=== PATIENT | female | born 1970 | race Caucasian/White ===

== ENCOUNTER 2016-08-14 16:42 | Emergency (ER) | payer OTHER ==
[2016-08-14 16:57] VITALS: BP 124/74
--- NOTE | 2016-08-14 18:31 | RAD ---
Indication: Proximal LEFT humerus and clavicle pain post fall. Comparison: March 05, 2016 Technique: AP and cephalad oblique views LEFT clavicle. Report: Normal alignment at the acromioclavicular and sternoclavicular joints. Mild osteophytosis and capsular hypertrophy at the AC joint. Negative for fracture. Unremarkable soft tissue contours. LEFT side cardiac pacemaker noted. IMPRESSION: Negative for LEFT clavicle fracture.
--- NOTE | 2016-08-14 18:33 | RAD ---
INDICATION: LEFT elbow pain post fall. COMPARISON: No relevant prior exams available on the [facility]. TECHNIQUE: AP, lateral, and oblique views LEFT elbow. REPORT: Normal articular alignment. Negative for joint effusion. No cortical disruption or suspicious trabecular irregularity to suggest fracture. Mild osteophytosis at the proximal radioulnar joint. Unremarkable soft tissue contours. IMPRESSION: No traumatic injury evident.
--- NOTE | 2016-08-14 18:35 | RAD ---
Indication: Proximal LEFT humerus pain post fall. Comparison: LEFT clavicle and elbow of the same date. Technique: AP and lateral views LEFT humerus. Report: Negative for fracture or malalignment. Minimal calcific tendinopathy at the level of the supraspinatus tendon. Mild osteoarthritis of the acromioclavicular joint. Unremarkable soft tissue contours. LEFT chest wall pacemaker noted. IMPRESSION: Negative for LEFT humerus fracture.
--- NOTE | 2016-08-14 18:37 | RAD ---
INDICATION: Pain including at the level of the anatomic snuffbox post fall. COMPARISON: May 10, 2013 TECHNIQUE: AP, lateral, and oblique views LEFT wrist. Scaphoid view. REPORT: Normal articular alignment. No cortical disruption or suspicious trabecular irregularity to suggest fracture. Mild nonfocal soft tissue swelling. IMPRESSION: No evidence for fracture. If there is high index of suspicion for an occult scaphoid fracture repeat exam in 7 - 10 days would be suggested.
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
== END 2016-08-14 19:08 | disposition home or self-care (01) ==
LOC: UCEAST 16:42
DX: S53.402A Unspecified sprain of left elbow, initial encounter (principal); S40.022A Contusion of left upper arm, initial encounter; S06.0X0A Concussion without loss of consciousness, initial encounter; W17.81XA Fall down embankment (hill), initial encounter; Y93.01 Activity, walking, marching and hiking; Y92.410 Unspecified street and highway as the place of occurrence of the external cause; Z88.6 Allergy status to analgesic agent; Z88.5 Allergy status to narcotic agent; Z88.0 Allergy status to penicillin; Z88.8 Allergy status to other drugs, medicaments and biological substances; E11.9 Type 2 diabetes mellitus without complications; Z79.4 Long term (current) use of insulin; Z95.0 Presence of cardiac pacemaker; Z98.84 Bariatric surgery status; Z90.49 Acquired absence of other specified parts of digestive tract
CPT/HCPCS: 99213; G0463

== ENCOUNTER 2016-08-31 14:39 | Emergency (ER) | payer OTHER ==
[2016-08-31 16:04] VITALS: BP 113/64
[2016-08-31] MEDS ORDERED: HYDROcodone/ACETAMIN 5-325 MG* 1 TAB PO ONE (18:09)
--- NOTE | 2016-08-31 22:43 | UC ---
Mary De Jesus Erika, scribed for Kate Diggs MD on 08/31/16 at 1729 . Back Pain HPI - HPI Summary HPI Summary: Patient is a 46-year-old female presenting to [facility] with a CC of back pain starting today at 12:30. Patient reports that today, she was bending over to dry her right leg when she felt a "pop" and had pain shooting from the upper back to the lower back to the bilateral posterior lower extremities. Pain is worse on the right side. Patient rates pain a 7/10 while sitting and a 9/10 while ambulating. Pain was not alleviated by 2 pills of Aleve at 13:00. Patient states she urinates frequently at baseline, and notes some pain when the bladder is empty. Hx DDD, pacemaker. PSHx discectomy L4-L5, hysterectomy in 2011 for pre-cancerous cells. FHx CAD, DM, cancer. - History of Current Complaint Chief Complaint: UCBackPain Stated Complaint: BACK PAIN Time Seen by Provider: 08/31/16 17:24 Hx Obtained From: Patient Hx Last Menstrual Period: hysterectomy 2011 Onset/Duration: Sudden Onset, Lasting Hours, Still Present Timing: Constant Severity Initially: Moderate Severity Currently: Moderate Pain Intensity: 8 Pain Scale Used: 0-10 Numeric Character: Aching Aggravating: Movement Alleviating: Heat Associated Signs And Symptoms: Positive: Pain with Weight Bearing. Negative: Weakness, Numbness, Tingling, Abdominal Pain, Bladder Incontinence, Bowel Incontinence - Allergies/Home Medications Allergies/Adverse Reactions: Allergies Allergy/AdvReac Type Severity Reaction Status Date / Time Adhesive Tape Allergy Severe Rash Verified 08/14/16 16:57 Aspirin Allergy Severe Hives/Diff. Verified 08/14/16 16:57 Breathing/I tching Morphine Allergy Severe Hives/Diff. Verified 08/14/16 16:57 Breathing/I tching Amoxicillin Allergy Intermediate Hives Verified 08/14/16 16:57 Metformin AdvReac Severe n/v/d Verified 08/14/16 16:57 Home Medications: Home Medications Cyanocobalamin [B12] 2,000 mcg PO BID 08/31/16 [History Confirmed 08/31/16] Magnesium [Magnesium] 400 mg PO 08/31/16 [History] Multiple Vitamin [Multi Vitamin] 2 tab PO 08/31/16 [History] PMH/Surg Hx/FS Hx/Imm Hx Endocrine History Of: Reports: Diabetes - pt reports she uses lantus 21units daily, Thyroid Disease Cardiovascular History Of: Reports: Cardiac Disorders, Pacemaker/ICD - 9/ because she is on Latuda which gave her bradycardia Denies: Hypertension, Myocardial Infarction, Congestive Heart Failure Respiratory History Of: Reports: COPD - PER PT.FROM 2D HAND SMOKE/PARENTS, Bronchitis - CHRONIC, Pneumonia GI/ History Of: Neurological History Of: Reports: Migraine Psychological History Of: Reports: Bipolar Disorder Cancer History Of: Other History Of: - Surgical History Surgical History: Yes Surgery Procedure, Year, and Place: DISCECTOMY L4-L5 2007. HYSTERECTOMY 2011. RT BREAST LUMP REMOVED- BENIGN 2004. GALLBLADDER 2006. 3 C-SECTIONS 96 , 98, 99; Gastric sleeve, Pacer placed 02/28. GASTRIC SLEEVE SURGERY 2014 - Family History Known Family History: Positive: Cardiac Disease, Diabetes, Other - cancer Family History: Heart disease: Father, [place] age 46. Stroke: Grandmother, grandfather. Seizures: Daughter - Social History Occupation: Disabled Alcohol Use: None Substance Use Type: None Smoking Status (MU): Never Smoked Tobacco - Immunization History Most Recent Influenza Vaccination: this season Most Recent Tetanus Shot: ~2012 Most Recent Pneumonia Vaccination: 2 years ago Review of Systems Constitutional: Negative Skin: Negative Eyes: Negative ENT: Negative Respiratory: Negative Cardiovascular: Negative Gastrointestinal: Negative Genitourinary: Frequency - baseline Motor: Negative Neurovascular: Negative Musculoskeletal: Arthralgia, Other: - back pain radiating down posterior legs Neurological: Negative Psychological: Negative All Other Systems Reviewed And Are Negative: Yes Physical Exam Triage Information Reviewed: Yes Appearance: Well-Appearing, Well-Nourished, Pain Distress Vital Signs: Initial Vital Signs Temp 97.1 F 08/31/16 15:58 Pulse 66 08/31/16 15:58 Resp 16 08/31/16 15:58 BP 113/64 08/31/16 15:58 Pulse Ox 99 08/31/16 15:58 Vital Signs Reviewed: Yes Eyes: Positive: Conjunctiva Clear, Other: - PERRL, EOMI ENT: Positive: Normal ENT inspection Neck: Positive: Supple Respiratory: Positive: Lungs clear, Normal breath sounds, No respiratory distress Cardiovascular: Positive: RRR, No Murmur, Pulses Normal, Brisk Capillary Refill Abdomen Description: Positive: Nontender, Soft. Negative: CVA Tenderness (R), CVA Tenderness (L), Distended, Guarding, McBurney's Point Tenderness, Peritoneal Signs, Pulsatile Mass Bowel Sounds: Positive: Present Musculoskeletal: Positive: Other: - Patient gets up with difficulty. She can bear weight. Patellar and ankle reflexes are 1+ bilaterally. Walks on heels and tiptoes. Neurological: Positive: Alert, Muscle Tone Normal Psychological Exam: Normal Skin Exam: Normal Back Pain Course/Dx - Course Course Of Treatment: UA neg - Differential Dx/Diagnosis Differential Diagnosis/HQI/PQRI: Arthritis, Herniated Disc, Strain, Sprain Provider Diagnoses: 1. Acute low back pain Discharge - Discharge Plan Condition: Stable Disposition: HOME Prescriptions: HYDROcodone/ACETAMIN 5-325 MG* [Warren 5-325 TAB*] 1 tab PO Q4H PRN #12 tab MDD 4 PRN Reason: Pain Patient Education Materials: Acute Low Back Pain (ED) Referrals: Paige Barnett MD [Primary Care Provider] - 2 Days Additional Instructions: RETURN TO URGENT CARE FOR ANY NEW OR WORSENING SYMPTOMS. The documentation as recorded by the Mary noel Erika accurately reflects the service I personally performed and the decisions made by , Kate Diggs MD.
== END 2016-08-31 19:33 | disposition home or self-care (01) ==
LOC: UCEAST 14:39
DX: M54.5 Low back pain (principal); E11.9 Type 2 diabetes mellitus without complications; Z88.0 Allergy status to penicillin; Z95.0 Presence of cardiac pacemaker; J44.9 Chronic obstructive pulmonary disease, unspecified
CPT/HCPCS: 81003; 99202; G0463

== ENCOUNTER 2016-11-15 09:32 | Emergency (ER) | payer OTHER ==
[2016-11-15 10:03] VITALS: BP 128/78
--- NOTE | 2016-11-15 10:19 | UC ---
Back Pain HPI - HPI Summary HPI Summary: BENT OVER YESTERDAY AND FELT A POP. PT HAS CHRONIC BACK PAIN AND NOW HAS WORSENING LOW BACK PAIN RADIATING DOWN BOTH LEGS. HAS SOME RIGHT LEG NUMBNESS BUT THIS IS ALSO CHRONIC. DENIES BOWEL OR BLADDER INCONTINENCE. NO SADDLE ANESTHESIA. - History of Current Complaint Chief Complaint: UCBackPain Stated Complaint: BACK INJURY Time Seen by Provider: 11/15/16 09:53 Hx Obtained From: Patient Hx Last Menstrual Period: hysterectomy 2011 Onset/Duration: Sudden Onset, Lasting Days, Still Present Timing: Constant Severity Initially: Moderate Severity Currently: Moderate Pain Intensity: 8 Pain Scale Used: 0-10 Numeric Character: Sharp Aggravating: Movement, Bending Alleviating: Position Associated Signs And Symptoms: Positive: Negative - Allergies/Home Medications Allergies/Adverse Reactions: Allergies Allergy/AdvReac Type Severity Reaction Status Date / Time Adhesive Tape Allergy Severe Rash Verified 11/15/16 09:43 Aspirin Allergy Severe Hives/Diff. Verified 11/15/16 09:43 Breathing/I tching Morphine Allergy Severe Hives/Diff. Verified 11/15/16 09:43 Breathing/I tching Amoxicillin Allergy Intermediate Hives Verified 11/15/16 09:43 Metformin AdvReac Severe n/v/d Verified 11/15/16 09:43 Home Medications: Home Medications ALPRAZolam TAB* [Xanax TAB*] 11/15/16 [History] Albuterol HFA INHALER* [Ventolin HFA Inhaler*] 11/15/16 [History] Fluticasone Propionate Hfa [Flovent Hfa] 11/15/16 [History] Omeprazole CAP* [Prilosec CAP* 20 MG] 11/15/16 [History] Sitagliptin Phosphate [Januvia] 11/15/16 [History] PMH/Surg Hx/FS Hx/Imm Hx - Additional Past Medical History Additional PMH: CHRONIC BACK PAIN Endocrine History: Diabetes Psychological History: Anxiety, Depression, Post Traumatic Stress Disorder Other History Of: - Surgical History Surgical History: Yes Surgery Procedure, Year, and Place: DISCECTOMY L4-L5 2007. HYSTERECTOMY 2011. RT BREAST LUMP REMOVED- BENIGN 2004. GALLBLADDER 2006. 3 C-SECTIONS 96 , 98, 99; Gastric sleeve, Pacer placed 02/28. GASTRIC SLEEVE SURGERY 2014 - Family History Known Family History: Positive: Cardiac Disease, Diabetes, Other - cancer Family History: Heart disease: Father, [place] age 46. Stroke: Grandmother, grandfather. Seizures: Daughter - Social History Alcohol Use: None Substance Use Type: None Smoking Status (MU): Never Smoked Tobacco Have You Smoked in the Last Year: No - Pt states she has never smoked before in her life. - Immunization History Most Recent Influenza Vaccination: this season Most Recent Tetanus Shot: ~2012 Most Recent Pneumonia Vaccination: 2 years ago Review of Systems Constitutional: Negative Skin: Negative Respiratory: Negative Cardiovascular: Negative Gastrointestinal: Negative Musculoskeletal: Arthralgia, Decreased ROM, Myalgia All Other Systems Reviewed And Are Negative: Yes Physical Exam Triage Information Reviewed: Yes Appearance: Well-Appearing, No Pain Distress, Well-Nourished Vital Signs: Initial Vital Signs Temp 98.4 F 11/15/16 10:02 Pulse 72 11/15/16 10:02 Resp 16 11/15/16 10:02 BP 128/78 11/15/16 10:02 Pulse Ox 98 11/15/16 10:02 Vital Signs Reviewed: Yes Eyes: Positive: Conjunctiva Clear ENT: Positive: Hearing grossly normal Neck: Positive: Supple Respiratory: Positive: No respiratory distress, No accessory muscle use Cardiovascular: Positive: Pulses Normal Abdomen Description: Positive: Soft Musculoskeletal: Positive: No Edema, ROM Limited @, Other: - NEG STRAIGHT LEG RAISE Neurological: Positive: Alert Psychological: Positive: Age Appropriate Behavior Skin: Negative: rashes Back Pain Course/Dx - Differential Dx/Diagnosis Provider Diagnoses: ACUTE ON CHRONIC LOW BACK PAIN Discharge - Discharge Plan Condition: Stable Disposition: HOME Prescriptions: Meloxicam [Mobic] 7.5 mg PO BID PRN #30 tab PRN Reason: Pain Metaxalone TAB* [Skelaxin TAB*] 800 mg PO TID PRN #30 tab PRN Reason: Pain Patient Education Materials: Acute Low Back Pain (ED), Chronic Back Pain (ED) Referrals: Paige Barnett MD [Primary Care Provider] - 1 Week Additional Instructions: WE WILL SEND YOUR INFORMATION FOR A PAIN CLINIC REFERRAL. THEY WILL CONTACT YOU FOR AN APPOINTMENT. CONSIDER FOLLOW-UP WITH THE [facility] IN [place]. [facility] [address] [place] [address]
== END 2016-11-15 10:33 | disposition home or self-care (01) ==
LOC: UCEAST 09:32
DX: M54.5 Low back pain (principal); G89.29 Other chronic pain
CPT/HCPCS: 99212; G0463

== ENCOUNTER → 2016-12-20 16:38 | Emergency (ER) | payer OTHER ==
[~2016-12-20 16:38] MED LIST: HYDROcodone/ACETAMIN 5-325 MG* 1 TAB PO ONE
--- NOTE | 2016-12-20 19:06 | ED ---
Back Pain - HPI Summary HPI Summary: Patient with a complicated history of back problems and frequency to the ED presents s/p fall and c/o worsening back and tailbone pain with immediate bladder incontinence s/p fall. She is ambulating well, but with pain. She states she may have "pulled something" in her lower back and the pain is much worse than normal. Upon arrival to the ED, she walked with provider to restroom without issue, but states she had another episode of "dribbling" prior to sitting on the seat to go. She has never had this problem before. She endorses numbness and tingling through the right leg and has had this with previous back injuries. Denies hitting head or LOC. No saddle anesthesia on PE. - History of Current Complaint Chief Complaint: EDBackInjuryPain Stated Complaint: FALL/BACK AND HIP PAIN Time Seen by Provider: 12/20/16 17:06 Hx Obtained From: Patient Hx Last Menstrual Period: hysterectomy 2011 Onset/Duration: Sudden Onset Onset/Duration: Started Hours Ago Timing: Constant Back Pain Location: Is Discrete @ - low back Severity Initially: Moderate Severity Currently: Moderate Pain Intensity: 10 Pain Scale Used: 0-10 Numeric Character: Dull, Aching Aggravating Symptom(s): Movement Alleviating Symptom(s): Nothing Associated Signs And Symptoms: Positive: Bladder Incontinence, Pain with Weight Bearing - Risk Factors AAA Risk Factors: Negative TAD Risk Factors: Negative Cauda Equina Risk Factors: Bladder Dysfunction Epidural Abscess Risk Factors: Lower Extemity Numbness - Allergies/Home Medications Allergies/Adverse Reactions: Allergies Allergy/AdvReac Type Severity Reaction Status Date / Time Adhesive Tape Allergy Severe Rash Verified 11/15/16 09:43 Aspirin Allergy Severe Hives/Diff. Verified 11/15/16 09:43 Breathing/I tching Morphine Allergy Severe Hives/Diff. Verified 11/15/16 09:43 Breathing/I tching Amoxicillin Allergy Intermediate Hives Verified 11/15/16 09:43 Metformin AdvReac Severe n/v/d Verified 11/15/16 09:43 PMH/Surg Hx/FS Hx/Imm Hx Previously Healthy: No - previous back pain and surgeries, see below Endocrine/Hematology History: Reports: Hx Diabetes - pt reports she uses lantus 21units daily, Hx Thyroid Disease, Hx Anemia Cardiovascular History: Reports: Hx Angina, Hx Hypercholesterolemia, Hx Pacemaker/ICD - 9/ because she is on Latuda which gave her bradycardia, Hx Valvular Heart Disease - MVP, Other Cardiovascular Problems/Disorders - MITRAL VALVE PROLAPSE Denies: Hx Congestive Heart Failure, Hx Hypertension, Hx Myocardial Infarction Respiratory History: Reports: Hx Chronic Bronchitis, Hx Chronic Obstructive Pulmonary Disease (COPD) - PER PT.FROM 2D HAND SMOKE/PARENTS, Hx Pneumonia, Hx Sleep Apnea Denies: Hx Asthma - albuterol + symbicort GI History: Reports: Hx Diverticulosis, Hx Gastroesophageal Reflux Disease - NO MEDICATION FOR- NO PROBLEMS SINCE GASTRIC SURGERY, Other GI Disorders - GASTRIC SLEEVE 1+ YEAR AGO History: Reports: Other Problems/Disorders - 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 Musculoskeletal History: Reports: Hx Arthritis - MANY JOINTS - back, hips primarily, Hx Back Problems - DDD, Hx Tendonitis Denies: Hx Rheumatoid Arthritis, Hx Osteoporosis Sensory History: Reports: Hx Contacts or Glasses - GLASSES Opthamlomology History: Reports: Hx Contacts or Glasses - GLASSES Neurological History: Reports: Hx Headaches, Hx Migraine, Other Neuro Impairments/Disorders - siatic nerve pain Psychiatric History: Reports: Hx Panic Disorder - ANXIETY, Hx Post Traumatic Stress Disorder, Hx Inpatient Treatment, Hx Community Mental Health Tx, Hx Bipolar Disorder, Hx Suicide Attempt, Other Psychiatric Issues/Disorders - reports: "personality d/o" Denies: Hx Eating Disorder - Pt states [employer] "Diagnosed me with an eating D/O because I was afraid to eat.", Hx of Violent Episodes Against Others - Cancer History Cancer Type, Location and Year: hysterectomy was due to precancerous cells - Surgical History Surgery Procedure, Year, and Place: DISCECTOMY L4-L5 2007. HYSTERECTOMY 2011. RT BREAST LUMP REMOVED- BENIGN 2004. GALLBLADDER 2006. 3 C-SECTIONS 96 , 98, 99; Gastric sleeve, Pacer placed 02/28. GASTRIC SLEEVE SURGERY 2014 Hx Anesthesia Reactions: No - Immunization History Hx Pertussis Vaccination: No Immunizations Up to Date: Unable to Obtain/Confirm Infectious Disease History: No Infectious Disease History: Denies: Hx Clostridium Difficile, Hx of Known/Suspected MRSA, Hx Shingles, Hx Tuberculosis, Hx Known/Suspected VRE, Hx Known/Suspected VRSA, History Other Infectious Disease, Traveled Outside the [place] in Last 30 Days - Family History Known Family History: Positive: None, Cardiac Disease, Diabetes, Other - cancer Family History: Heart disease: Father, [place] age 46. Stroke: Grandmother, grandfather. Seizures: Daughter - Social History Occupation: Unemployed Lives: With Family Alcohol Use: None Hx Substance Use: No Substance Use Type: Reports: None Hx Tobacco Use: No Smoking Status (MU): Never Smoked Tobacco Have You Smoked in the Last Year: No - Pt states she has never smoked before in her life. Review of Systems Constitutional: Negative Eyes: Negative Cardiovascular: Negative Respiratory: Negative Gastrointestinal: Negative Positive: incontinence Positive: Arthralgia, Myalgia - lower back pain Skin: Negative Positive: Paresthesia, Numbness Psychological: Normal All Other Systems Reviewed And Are Negative: Yes Physical Exam Triage Information Reviewed: Yes Vital Signs On Initial Exam: Initial Vitals Temp Pulse Resp BP Pulse Ox 97.5 F 72 17 130/75 98 12/20/16 16:45 12/20/16 16:45 12/20/16 16:45 12/20/16 16:45 12/20/16 16:45 Vital Signs Reviewed: Yes Appearance: Positive: Well-Appearing, No Pain Distress, Well-Nourished Skin: Positive: Warm, Skin Color Reflects Adequate Perfusion Neck: Positive: Supple, Nontender, No Lymphadenopathy Respiratory/Lung Sounds: Positive: Clear to Auscultation, Breath Sounds Present Cardiovascular: Positive: Normal, RRR Bowel Sounds: Positive: Present, Other - normal spinchter tone on ELIUD Musculoskeletal: Positive: Normal Neurological: Positive: Sensory/Motor Intact, Alert, Oriented to Person Place, Time, CN Intact II-III, Facial Symmetry, Speech Normal Psychiatric: Positive: Normal AVPU Assessment: Alert - [place] Coma Scale Best Eye Response: 4 - Spontaneous Best Motor Response: 6 - Obeys Commands Best Verbal Response: 5 - Oriented Diagnostics - Vital Signs Vital Signs Temp Pulse Resp BP Pulse Ox 12/20/16 17:01 97.5 F 72 17 130/75 98 12/20/16 16:45 97.5 F 72 17 130/75 98 - Laboratory Lab Statement: Any lab studies that have been ordered have been reviewed, and results considered in the medical decision making process. Back Pain Course/Dx - Course Course Of Treatment: Spoke with Dr. Rojas about patient for potential imaging. Recent CT image 1 week ago s/p fall shows L2-L5 degenerative changes. Today, fell again and states more pain than usual. No perineal or saddle anesthesia. No bowel dysfunction or lower extremity weakness. Right lower extremity numbness and tingling. Bladder incontinence x 2. Post void bladder scan reveals 28. Ambulating without problems. Denies bladder or bowel dysfunction upon discharge. Will follow up with PCP this week. - Diagnoses Differential Diagnosis/HQI/PQRI: Positive: Fracture, Herniated Disc, Strain, Sprain Provider Diagnoses: Injury of back due to fall Discharge - Discharge Plan Condition: Stable Disposition: HOME Patient Education Materials: Chronic Back Pain (ED) Referrals: Paige Barnett MD [Primary Care Provider] - Additional Instructions: Ibuprofen 600mg three times daily with meals for discomfort. Return to ED if symptoms worsen or fail to improve, notice worsening swelling, warmth or redness around the joint, develop fever, or pain is uncontrolled with OTC medications. Moist heat to the area for comfort. Warm showers or baths may improve symptoms. It is important to remain mobile as tolerated to prevent stiffening of the joints and delay healing. Follow up with your PCP. If symptoms remain for > 6 weeks, please seek special medical attention from an orthopedic physician.
[2016-12-20 20:13] VITALS: BP 133/81
== END | disposition home or self-care (01) ==
LOC: ED 16:38
DX: S39.92XA Unspecified injury of lower back, initial encounter (principal); W19.XXXA Unspecified fall, initial encounter; Y92.9 Unspecified place or not applicable; E78.00 Pure hypercholesterolemia, unspecified; Z95.0 Presence of cardiac pacemaker; Z88.0 Allergy status to penicillin; Z88.5 Allergy status to narcotic agent; I34.1 Nonrheumatic mitral (valve) prolapse; J44.9 Chronic obstructive pulmonary disease, unspecified
CPT/HCPCS: 99282

== ENCOUNTER 2017-01-26 14:40 | Emergency (ER) | payer OTHER ==
[2017-01-26 15:29] LABS: Hematocrit 37 % (35-47); Hemoglobin 12.4 g/dl (12.0-16.0); Mean Corpuscular HGB Conc 34 g/dl (31-36); Mean Corpuscular Hemoglobin 29 pg (27-31); Mean Corpuscular Volume 85 fL (80-97); Mean Platelet Volume 7 um3 (7.4-10.4); Red Blood Count 4.33 10^6/ul (4.0-5.4); Red Cell Distribution Width 13 % (10.5-15); White Blood Count 10.2 10^3/ul (3.5-10.8)
[2017-01-26 16:07] LABS: T4 6.25 mcg/mL (6.09-12.23)
[2017-01-26 16:08] LABS: TSH (Thyroid Stimulating Horm) 1.42 mcIU/mL (0.34-5.60)
--- NOTE | 2017-01-26 16:11 | RAD ---
HISTORY: Chest pain COMPARISONS: March 26, 2016 VIEWS: 4: Frontal dual-energy and lateral views of the chest. FINDINGS: CARDIOMEDIASTINAL SILHOUETTE: The cardiomediastinal silhouette is normal. CHRIS: The chris are normal. PLEURA: The costophrenic angles are sharp. No pleural abnormalities are noted. LUNG PARENCHYMA: The lungs are clear. ABDOMEN: The upper abdomen is clear. There is no subphrenic gas. BONES AND SOFT TISSUES: No bone or soft tissue abnormalities are noted. OTHER: A left-sided pacemaker is noted . IMPRESSION: NO ACTIVE CARDIOPULMONARY DISEASE.
[2017-01-26 16:15] LABS: Albumin 3.4 g/dL (3.2-5.2); BUN/Creatinine Ratio 5.1 (8-20); Calcium 8.5 mg/dL (8.6-10.3); EGFR African American 79.3 (>60); EGFR Non-African American 61.7 (>60); Globulin 3.3 g/dL (2-4); Magnesium 1.3 mg/dL (1.9-2.7); Potassium 3.7 mmol/L (3.5-5.0); Total Bilirubin 0.4 mg/dL (0.2-1.0); Total Protein 6.7 g/dL (6.4-8.9)
[2017-01-26] MEDS ORDERED: NS 0.9% 1000 ML* 1,000 ML IV ONE (16:23)
[2017-01-26 17:22] LABS: Urine Bilirubin Negative (Negative); Urine Glucose Negative (Negative); Urine Nitrite Negative (Negative)
[2017-01-26] MEDS ORDERED: Acetaminophen TAB* 325 MG ONE (17:58)
[2017-01-26] MEDS ORDERED: Acetaminophen TAB* 325 MG PO ONE (18:02)
[2017-01-26 18:52] VITALS: BP 143/75
--- NOTE | 2017-01-27 17:29 | ED ---
Jni De Jesus Thomas, scribed for Keyon Deleon MD on 01/26/17 at 1606 . HPI Chest Pain - HPI Summary HPI Summary: The pt is a 46 y/o F presenting to the ED c/o CP that began today at 13:30. The pain radiates to her left arm and her jaw. The pain is rated 6/10. The pain is aggravated and alleviated by nothing. The patient has not treated the pain with anything ERP ANALYST. The chest pain was preceded by palpitations that began this morning at 07:30. The patient reports that after these palpitations began she returned to bed. The palpitations are alleviated when she remains supine and motionless. Pt additionally c/o dizziness (since 07:30 today), nausea, swollen fingers and legs, and SOB. PMHx: DM, angina, HLD, and COPD. PSHx: pacemaker, hysterectomy (2011). SHx: no smoking, no alcohol use, no illicit drug use. FHx: [place] (father at 44). LNMP September 2011. In the past, the patient has suffered similar episodes of chest pains that were evaluated to be negative for ACS. - History of Current Complaint Chief Complaint: EDChestPainROMI Time Seen by Provider: 01/26/17 14:52 Hx Obtained From: Patient Hx Last Menstrual Period: hysterectomy 2011 Onset/Duration: Started Hours Ago - today at 13:30, Still Present Timing: Constant Current Severity: Moderate Pain Intensity: 6 Pain Scale Used: 0-10 Numeric Chest Pain Radiates: Yes Chest Pain Radiates To:: Arm - L, Jaw Aggravating Factor(s): Nothing Alleviating Factor(s): Nothing Associated Signs and Symptoms: Positive: Chest Pain - 6/10, radiates to L arm and jaw, Dizziness - onset 07:30 today, Shortness of Breath, Swelling - to legs and toes, Palpitations - that began today at 07:30, relieved by laying in bed. Negative: Fever - Additional Pertinent History Primary Care Physician: [id number] - Allergy/Home Medications Allergies/Adverse Reactions: Allergies Allergy/AdvReac Type Severity Reaction Status Date / Time Adhesive Tape Allergy Severe Rash Verified 01/19/17 10:53 Aspirin Allergy Severe Hives/Diff. Verified 01/19/17 10:53 Breathing/I tching Morphine Allergy Severe Hives/Diff. Verified 01/19/17 10:53 Breathing/I tching Amoxicillin Allergy Intermediate Hives Verified 01/19/17 10:53 Metformin AdvReac Severe n/v/d Verified 01/19/17 10:53 PMH/Surg Hx/FS Hx/Imm Hx Previously Healthy: No Endocrine/Hematology History: Reports: Hx Diabetes - pt reports she uses lantus 21units daily, Hx Thyroid Disease, Hx Anemia Cardiovascular History: Reports: Hx Angina, Hx Hypercholesterolemia, Hx Pacemaker/ICD - 9/ because she is on Latuda which gave her bradycardia, Hx Valvular Heart Disease - MVP, Other Cardiovascular Problems/Disorders - MITRAL VALVE PROLAPSE Denies: Hx Congestive Heart Failure, Hx Hypertension, Hx Myocardial Infarction Respiratory History: Reports: Hx Chronic Bronchitis, Hx Chronic Obstructive Pulmonary Disease (COPD) - PER PT.FROM 2D HAND SMOKE/PARENTS, Hx Pneumonia, Hx Sleep Apnea Denies: Hx Asthma - albuterol + symbicort GI History: Reports: Hx Diverticulosis, Hx Gastroesophageal Reflux Disease - NO MEDICATION FOR- NO PROBLEMS SINCE GASTRIC SURGERY, Other GI Disorders - GASTRIC SLEEVE 1+ YEAR AGO History: Reports: Other Problems/Disorders - 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 Musculoskeletal History: Reports: Hx Arthritis - MANY JOINTS - back, hips primarily, Hx Back Problems - DDD, Hx Tendonitis Denies: Hx Rheumatoid Arthritis, Hx Osteoporosis Sensory History: Reports: Hx Contacts or Glasses - GLASSES Opthamlomology History: Reports: Hx Contacts or Glasses - GLASSES Neurological History: Reports: Hx Headaches, Hx Migraine, Other Neuro Impairments/Disorders - siatic nerve pain Psychiatric History: Reports: Hx Panic Disorder - ANXIETY, Hx Post Traumatic Stress Disorder, Hx Inpatient Treatment, Hx Community Mental Health Tx, Hx Bipolar Disorder, Hx Suicide Attempt, Other Psychiatric Issues/Disorders - reports: "personality d/o" Denies: Hx Eating Disorder - Pt states [employer] "Diagnosed me with an eating D/O because I was afraid to eat.", Hx of Violent Episodes Against Others - Cancer History Cancer Type, Location and Year: hysterectomy was due to precancerous cells - Surgical History Surgery Procedure, Year, and Place: DISCECTOMY L4-L5 2007. HYSTERECTOMY 2011. RT BREAST LUMP REMOVED- BENIGN 2004. GALLBLADDER 2006. 3 C-SECTIONS 96 , 98, 99; Gastric sleeve, Pacer placed 02/28. GASTRIC SLEEVE SURGERY 2015 Hx Anesthesia Reactions: No Infectious Disease History: No Infectious Disease History: Denies: Hx Clostridium Difficile, Hx of Known/Suspected MRSA, Hx Shingles, Hx Tuberculosis, Hx Known/Suspected VRE, Hx Known/Suspected VRSA, History Other Infectious Disease, Traveled Outside the [place] in Last 30 Days - Family History Known Family History: Positive: Cardiac Disease - father at 44, Diabetes, Other - cancer Family History: Heart disease: Father, [place] age 46. Stroke: Grandmother, grandfather. Seizures: Daughter - Social History Alcohol Use: None Hx Substance Use: No Substance Use Type: Reports: None Hx Tobacco Use: No Smoking Status (MU): Never Smoked Tobacco Have You Smoked in the Last Year: No - Pt states she has never smoked before in her life. Review of Systems Constitutional: Negative Negative: Fever Positive: Palpitations - onset 07:30, alleviated by lying in bed supine and motionless, Chest Pain - onset 13:30, 6/10, radiates to L arm and jaw Positive: Shortness Of Breath Positive: Nausea Positive: Other - POS: swelling to fingers and toes Neurological: Other - POS: dizziness All Other Systems Reviewed And Are Negative: Yes Physical Exam - Summary Physical Exam Summary: VITAL SIGNS: Reviewed. GENERAL: ~Patient is a well-developed and nourished female who is lying comfortable in the stretcher. ~Patient is not in any acute respiratory distress. HEAD AND FACE: No signs of trauma. ~No ecchymosis, hematomas or skull depressions. No sinus tenderness. EYES: PERRLA, EOMI x 2, No injected conjunctiva, no nystagmus. EARS: Hearing grossly intact. Ear canals and tympanic membranes are within normal limits. MOUTH: Oropharynx within normal limits. NECK: Supple, trachea is midline, no adenopathy, no JVD, no carotid bruit, no c- spine tenderness, neck with full ROM. CHEST: Symmetric, no tenderness at palpation LUNGS: Clear to auscultation bilaterally. No wheezing or crackles. CVS: Regular rate and rhythm, S1 and S2 present, no murmurs or gallops appreciated. ABDOMEN: Soft, non-tender. No signs of distention. No rebound no guarding, and no masses palpated. Bowel sounds are normal. EXTREMITIES: FROM in all major joints, no edema, no cyanosis or clubbing. NEURO: Alert and oriented x 3. No acute neurological deficits. Speech is normal and follows commands. SKIN: Dry and warm Triage Information Reviewed: Yes Vital Signs On Initial Exam: Initial Vitals Temp Pulse Resp BP Pulse Ox 99.9 F 80 20 164/77 93 01/26/17 14:40 01/26/17 14:40 01/26/17 14:40 01/26/17 14:40 01/26/17 14:40 Vital Signs Reviewed: Yes Diagnostics - Vital Signs Vital Signs Temp Pulse Resp BP Pulse Ox 01/26/17 15:07 85 16 127/66 93 01/26/17 15:06 99.1 F 83 13 127/66 93 01/26/17 14:40 99.9 F 80 20 164/77 93 - Laboratory Lab Results: Lab Results 01/26/17 01/26/17 01/26/17 Range/Units 15:23 15:23 15:23 WBC 10.2 (3.5-10.8) 10^3/ul RBC 4.33 (4.0-5.4) 10^6/ul Hgb 12.4 (12.0-16.0) g/dl Hct 37 (35-47) % MCV 85 (80-97) fL MCH 29 (27-31) pg MCHC 34 (31-36) g/dl RDW 13 (10.5-15) % Plt Count 255 (150-450) 10^3/ul MPV 7 L (7.4-10.4) um3 Neut % (Auto) 65.4 (38-83) % Lymph % (Auto) 27.8 (25-47) % [place] % (Auto) 4.8 (1-9) % Eos % (Auto) 1.1 (0-6) % Baso % (Auto) 0.9 (0-2) % Absolute Neuts (auto) 6.7 (1.5-7.7) 10^3/ul Absolute Lymphs (auto) 2.8 (1.0-4.8) 10^3/ul Absolute Monos (auto) 0.5 (0-0.8) 10^3/ul Absolute Eos (auto) 0.1 (0-0.6) 10^3/ul Absolute Basos (auto) 0.1 (0-0.2) 10^3/ul Absolute Nucleated RBC 0 10^3/ul Nucleated RBC % 0 Sodium Pending Potassium Pending Chloride Pending Carbon Dioxide Pending Anion Gap Pending BUN Pending Creatinine Pending Est GFR ( Amer) Pending Est GFR (Non-Af Amer) Pending BUN/Creatinine Ratio Pending Glucose Pending Calcium Pending Magnesium Pending Total Bilirubin Pending AST Pending ALT Pending Alkaline Phosphatase Pending Total Creatine Kinase Pending CK-MB (CK-2) 0.7 (0.6-6.3) ng/mL Troponin I 0.00 (<0.04) ng/mL B-Natriuretic Peptide 80 ( - 100) pg/mL Total Protein Pending Albumin Pending Globulin Pending Albumin/Globulin Ratio Pending TSH Pending Thyroxine (T4) Pending Result Diagrams: 01/26/17 15:23 01/26/17 15:23 Lab Statement: Any lab studies that have been ordered have been reviewed, and results considered in the medical decision making process. - Radiology CXR Xray Interpretation: No Acute Changes - No active cardiopulmonary disease Radiology Interpretation Completed By: Radiologist - EKG 14:56 Cardiac Rate: NL - 83 BPM EKG Interpretation: Sinus rhythm with no ST elevations. Chest Pain Course/Dx - Course Assessment/Plan: The pt is a 46 y/o F presenting to the ED c/o CP that began today at 13:30. The pain radiates to her left arm and her jaw. The pain is rated 6/10. The pain is aggravated and alleviated by nothing. The patient has not treated the pain with anything ERP ANALYST. The chest pain was preceded by palpitations that began this morning at 07:30. The patient reports that after these palpitations began she returned to bed. The palpitations are alleviated when she remains supine and motionless. Pt additionally c/o dizziness (since 07: 30 today), nausea, swollen fingers and legs, and SOB. PMHx: DM, angina, HLD, and COPD. PSHx: pacemaker, hysterectomy (2011). SHx: no smoking, no alcohol use , no illicit drug use. FHx: [place] (father at 44). LN September 2011. In the past , the patient has suffered similar episodes of chest pains that were evaluated to be negative for ACS. Test results are without significant abnormalities except a glucose of 191. Troponin I is 0.00 and the Troponin II was 0.00 after 4 hours. UA is negative. CXR reveals no active cardiopulmonary disease. EKG is NSR at [address] elevations. In the ED course, the patient has remained asymptomatic. I do not believe that the patient is dealing with an ACS because there are two negative troponins and a normal EKG. Also, I do not believe that the patient is dealing with a pulmonary embolus because the patient is not tachycardic and not hypoxic. The patient has a small MARIN, therefore, I gave her Tylenol. At this point, the patient is hemodynamically stable and is alert and oriented x3. She will be discharge home with follow up from her PCP. I discussed all the findings and test results with the patient. Patient was instructed to return to the emergency room immediately if any of the symptoms return or worsens. Plan of care was discussed with the patient and understands and agrees. All questions were answered at patient satisfaction. There were no further complaints or concerns. - Chest Pain Differential Diagnosis/HQI/PQRI: Acute [place], ACS, Angina, Aortic Aneurysm, CHF, Chest Wall, GI Disease, Lower Respiratory Infection - Diagnoses Provider Diagnoses: Chest pain Discharge - Discharge Plan Condition: Stable Disposition: HOME Patient Education Materials: Chest Pain (ED) Referrals: Paige Barnett MD [Primary Care Provider] - 3 Days The documentation as recorded by the Jin noel Thomas accurately reflects the service I personally performed and the decisions made by me, Keyon Deleon MD.
== END 2017-01-26 18:54 | disposition home or self-care (01) ==
LOC: ED 14:40
DX: R07.89 Other chest pain (principal); R68.84 Jaw pain; M79.602 Pain in left arm; R42 Dizziness and giddiness; R06.02 Shortness of breath; R60.0 Localized edema; E11.9 Type 2 diabetes mellitus without complications; Z79.4 Long term (current) use of insulin; E07.9 Disorder of thyroid, unspecified; E78.00 Pure hypercholesterolemia, unspecified; I34.1 Nonrheumatic mitral (valve) prolapse; Z95.0 Presence of cardiac pacemaker; J44.9 Chronic obstructive pulmonary disease, unspecified; K21.9 Gastro-esophageal reflux disease without esophagitis; G43.909 Migraine, unspecified, not intractable, without status migrainosus; F41.9 Anxiety disorder, unspecified; Z98.84 Bariatric surgery status; Z90.710 Acquired absence of both cervix and uterus; Z90.49 Acquired absence of other specified parts of digestive tract; Z88.6 Allergy status to analgesic agent; Z88.1 Allergy status to other antibiotic agents; Z88.5 Allergy status to narcotic agent; Z88.8 Allergy status to other drugs, medicaments and biological substances; Z91.048 Other nonmedicinal substance allergy status
CPT/HCPCS: 36415; 71020; 80053; 81003; 82550; 82553; 83605; 83735; 83880; 84436; 84443; 84484; 85025; 93005; 99283; A9270-GY

== ENCOUNTER 2017-02-06 14:33 | Emergency (ER) | payer OTHER ==
[2017-02-06] MEDS ORDERED: ALPRAZolam TAB* 0.5 MG PO ONE (15:21)
--- NOTE | 2017-02-06 15:45 | RAD ---
HISTORY: Chest pain COMPARISONS: January 26, 2017 VIEWS:1: Single frontal portable view of the chest at 3:27 PM FINDINGS: LINES AND TUBES: A left-sided pacemaker is noted. CARDIOMEDIASTINAL SILHOUETTE: The cardiomediastinal silhouette is normal for portable technique. PLEURA: The costophrenic angles are sharp. No pleural abnormalities are noted. LUNG PARENCHYMA: The lungs are clear. ABDOMEN: The upper abdomen is clear. There is no subphrenic gas. BONES AND SOFT TISSUES: No bone or soft tissue abnormalities are noted. IMPRESSION: NO ACTIVE CARDIOPULMONARY DISEASE.
[2017-02-06 16:50] LABS: Hematocrit 41 % (35-47); Hemoglobin 13.5 g/dl (12.0-16.0); Mean Corpuscular HGB Conc 33 g/dl (31-36); Mean Corpuscular Hemoglobin 28 pg (27-31); Mean Corpuscular Volume 85 fL (80-97); Mean Platelet Volume 7 um3 (7.4-10.4); Red Blood Count 4.85 10^6/ul (4.0-5.4); Red Cell Distribution Width 14 % (10.5-15); White Blood Count 11.2 10^3/ul (3.5-10.8)
[2017-02-06 17:01] LABS: Albumin 4.3 g/dL (3.2-5.2); BUN/Creatinine Ratio 11.4 (8-20); Calcium 9.6 mg/dL (8.6-10.3); EGFR African American 56.2 (>60); EGFR Non-African American 43.7 (>60); Globulin 3.9 g/dL (2-4); Potassium 4.5 mmol/L (3.5-5.0); Total Bilirubin 0.4 mg/dL (0.2-1.0); Total Protein 8.2 g/dL (6.4-8.9)
--- NOTE | 2017-02-06 17:45 | ED ---
Angel De Jesus Alfonso, scribed for Norah Choe MD on 02/06/17 at 1532 . Complex/Multi-Sys Presentation - HPI Summary HPI Summary: This patient is a 46 year old F presenting to [facility] with a chief complaint of anxiety since 1030 today. She reports losing her Xanax prescription bottle. She reports I cannot sit still. She denies ever losing her Xanax before. The patient rates the pain 8/10 in severity. Symptoms alleviated by resting. Patient reports diffuse CP (constant since 1030 elephant sitting on chest). Patient denies fever, chills, and cough. She is scheduled for her next stress test this coming week. PMHx of anxiety, borderline personality disorder, and DM. - History Of Current Complaint Chief Complaint: EDGeneral Time Seen by Provider: 02/06/17 14:42 Hx Obtained From: Patient Onset/Duration: Sudden Onset, Lasting Hours - 1030 today, Still Present Timing: Constant Severity Currently: Moderate Severity Initially: Moderate Alleviating Factor(s): Resting Associated Signs And Symptoms: Positive: Other - Patient reports diffuse CP ( constant since 1030 elephant sitting on chest). Patient denies fever, chills, and cough. - Allergies/Home Medications Allergies/Adverse Reactions: Allergies Allergy/AdvReac Type Severity Reaction Status Date / Time Adhesive Tape Allergy Severe Rash Verified 02/06/17 14:37 Aspirin Allergy Severe Hives/Diff. Verified 02/06/17 14:37 Breathing/I tching Morphine Allergy Severe Hives/Diff. Verified 02/06/17 14:37 Breathing/I tching Amoxicillin Allergy Intermediate Hives Verified 02/06/17 14:37 Metformin AdvReac Severe n/v/d Verified 02/06/17 14:37 PMH/Surg Hx/FS Hx/Imm Hx Endocrine/Hematology History: Reports: Hx Diabetes - pt reports she uses lantus 21units daily, Hx Thyroid Disease, Hx Anemia Cardiovascular History: Reports: Hx Angina, Hx Hypercholesterolemia, Hx Pacemaker/ICD - 9//16 because she is on Latuda which gave her bradycardia, Hx Valvular Heart Disease - MVP, Other Cardiovascular Problems/Disorders - MITRAL VALVE PROLAPSE Denies: Hx Congestive Heart Failure, Hx Hypertension, Hx Myocardial Infarction Respiratory History: Reports: Hx Chronic Bronchitis, Hx Chronic Obstructive Pulmonary Disease (COPD) - PER PT.FROM 2D HAND SMOKE/PARENTS, Hx Pneumonia, Hx Sleep Apnea Denies: Hx Asthma - albuterol + symbicort GI History: Reports: Hx Diverticulosis, Hx Gastroesophageal Reflux Disease - NO MEDICATION FOR- NO PROBLEMS SINCE GASTRIC SURGERY, Other GI Disorders - GASTRIC SLEEVE 1+ YEAR AGO History: Reports: Other Problems/Disorders - 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 Musculoskeletal History: Reports: Hx Arthritis - MANY JOINTS - back, hips primarily, Hx Back Problems - DDD, Hx Tendonitis Denies: Hx Rheumatoid Arthritis, Hx Osteoporosis Sensory History: Reports: Hx Contacts or Glasses - GLASSES Opthamlomology History: Reports: Hx Contacts or Glasses - GLASSES Neurological History: Reports: Hx Headaches, Hx Migraine, Other Neuro Impairments/Disorders - siatic nerve pain Psychiatric History: Reports: Hx Panic Disorder - ANXIETY, Hx Post Traumatic Stress Disorder, Hx Inpatient Treatment, Hx Community Mental Health Tx, Hx Bipolar Disorder, Hx Suicide Attempt, Other Psychiatric Issues/Disorders - reports: "personality d/o" Denies: Hx Eating Disorder - Pt states ORDER DESK CALLER "Diagnosed me with an eating D/O because I was afraid to eat.", Hx of Violent Episodes Against Others - Cancer History Cancer Type, Location and Year: hysterectomy was due to precancerous cells - Surgical History Surgery Procedure, Year, and Place: DISCECTOMY L4-L5 2007. HYSTERECTOMY 2011. RT BREAST LUMP REMOVED- BENIGN 2004. GALLBLADDER 2006. 3 C-SECTIONS 96 , 98, 99; Gastric sleeve, Pacer placed 02/28. GASTRIC SLEEVE SURGERY 2014 Hx Anesthesia Reactions: No Infectious Disease History: No Infectious Disease History: Denies: Hx Clostridium Difficile, Hx of Known/Suspected MRSA, Hx Shingles, Hx Tuberculosis, Hx Known/Suspected VRE, Hx Known/Suspected VRSA, History Other Infectious Disease, Traveled Outside the [place] in Last 30 Days - Family History Known Family History: Positive: Cardiac Disease - father at 44, Diabetes, Other - cancer Family History: Heart disease: Father, [place] age 46. Stroke: Grandmother, grandfather. Seizures: Daughter - Social History Alcohol Use: None Hx Substance Use: No Substance Use Type: Reports: Prescribed Substance Use Comment - Amount & Last Used: Xanax - but lost bottle 4 days ago Hx Tobacco Use: No Smoking Status (MU): Never Smoked Tobacco Have You Smoked in the Last Year: No - Pt states she has never smoked before in her life. Review of Systems Negative: Fever, Chills Positive: Chest Pain - Pressure Negative: Cough Positive: Anxious All Other Systems Reviewed And Are Negative: Yes Physical Exam Triage Information Reviewed: Yes Vital Signs On Initial Exam: Initial Vitals Temp Pulse Resp BP Pulse Ox 97.5 F 107 16 139/90 97 02/06/17 14:35 02/06/17 14:35 02/06/17 14:35 02/06/17 14:35 02/06/17 14:35 Vital Signs Reviewed: Yes Appearance: Positive: Well-Appearing, No Pain Distress Skin: Positive: Skin Color Reflects Adequate Perfusion, Dry Eyes: Positive: EOMI, HORACIO ENT: Positive: Pharynx normal, TMs normal Neck: Positive: Supple, Nontender Respiratory/Lung Sounds: Positive: Clear to Auscultation, Breath Sounds Present. Negative: Rales, Rhonchi, Wheezes Cardiovascular: Positive: RRR, Other - No gallop. Negative: Murmur, Rub Abdomen Description: Positive: Nontender, Soft, Other: - No rebound. Negative: Distended, Guarding Bowel Sounds: Positive: Present Musculoskeletal: Positive: Strength/ROM Intact. Negative: Edema Left, Edema Right Neurological: Positive: Sensory/Motor Intact, Alert, Oriented to Person Place, Time, CN Intact II-III Psychiatric: Positive: Affect/Mood Appropriate Diagnostics - Vital Signs Vital Signs Temp Pulse Resp BP Pulse Ox 02/06/17 14:35 97.5 F 107 16 139/90 97 - Laboratory Lab Results: Lab Results 02/06/17 02/06/17 02/06/17 Range/Units 16:31 16:31 16:31 WBC 11.2 H (3.5-10.8) 10^3/ul RBC 4.85 (4.0-5.4) 10^6/ul Hgb 13.5 (12.0-16.0) g/dl Hct 41 (35-47) % MCV 85 (80-97) fL MCH 28 (27-31) pg MCHC 33 (31-36) g/dl RDW 14 (10.5-15) % Plt Count 325 (150-450) 10^3/ul MPV 7 L (7.4-10.4) um3 Neut % (Auto) 81.8 (38-83) % Lymph % (Auto) 14.3 L (25-47) % Claiborne % (Auto) 2.9 (1-9) % Eos % (Auto) 0 (0-6) % Baso % (Auto) 1.0 (0-2) % Absolute Neuts (auto) 9.1 H (1.5-7.7) 10^3/ul Absolute Lymphs (auto) 1.6 (1.0-4.8) 10^3/ul Absolute Monos (auto) 0.3 (0-0.8) 10^3/ul Absolute Eos (auto) 0 (0-0.6) 10^3/ul Absolute Basos (auto) 0.1 (0-0.2) 10^3/ul Absolute Nucleated RBC 0.01 10^3/ul Nucleated RBC % 0.1 Sodium 129 L (133-145) mmol/L Potassium 4.5 (3.5-5.0) mmol/L Chloride 98 L (101-111) mmol/L Carbon Dioxide 26 (22-32) mmol/L Anion Gap 5 (2-11) mmol/L BUN 15 (6-24) mg/dL Creatinine 1.32 H (0.51-0.95) mg/dL Est GFR ( Amer) 56.2 (>60) Est GFR (Non-Af Amer) 43.7 (>60) BUN/Creatinine Ratio 11.4 (8-20) Glucose 448 H (70-100) mg/dL Lactic Acid 1.5 (0.5-2.0) mmol/L Calcium 9.6 (8.6-10.3) mg/dL Total Bilirubin 0.40 (0.2-1.0) mg/dL AST 16 (13-39) U/L ALT 14 (7-52) U/L Alkaline Phosphatase 43 (34-104) U/L Troponin I 0.00 (<0.04) ng/mL Total Protein 8.2 (6.4-8.9) g/dL Albumin 4.3 (3.2-5.2) g/dL Globulin 3.9 (2-4) g/dL Albumin/Globulin Ratio 1.1 (1-3) Result Diagrams: 02/06/17 16:31 02/06/17 16:31 Lab Statement: Any lab studies that have been ordered have been reviewed, and results considered in the medical decision making process. - Radiology CXR Radiology Interpretation Completed By: Radiologist - NO ACTIVE CARDIOPULMONARY DISEASE. ED physician has reviewed this radiology report and agrees. - EKG 1509 Cardiac Rate: NL - BPM 62 EKG Rhythm: Sinus Rhythm EKG Interpretation: NAC EKG Comparison: No Significant Change - 01/26/17 Complex Multi-Symp Course/Dx Course Of Treatment: 46 yo female with anxiety lost her meds, talked with pharmacist about giving her 4 days so that was prescribed, pt does often have cp and a 6 hour trop was obtained and rule out - Diagnoses Provider Diagnoses: Anxiety, Chest pain Discharge - Discharge Plan Condition: Stable Disposition: HOME Prescriptions: Alprazolam [Xanax Xr] 1 mg PO DAILY #4 tab MDD 1 Patient Education Materials: Anxiety (ED), Chest Pain (ED) Referrals: Paige Barnett MD [Primary Care Provider] - 3 Days The documentation as recorded by the Angel noel Alfonso accurately reflects the service I personally performed and the decisions made by me, Norah Choe MD.
[2017-02-06 17:53] VITALS: BP 125/97
== END 2017-02-06 17:30 | disposition home or self-care (01) ==
LOC: ED 14:33
DX: R07.9 Chest pain, unspecified (principal); F41.9 Anxiety disorder, unspecified
CPT/HCPCS: 36415; 71010; 80053; 83605; 84484; 85025; 93005; 99283

== ENCOUNTER 2017-03-23 17:03 | Emergency (ER) | payer OTHER ==
[2017-03-23 19:24] VITALS: BP 110/70
--- NOTE | 2017-03-23 20:23 | UC ---
Michelle De Jesus Abhishek, scribed for Doug Lei MD on 03/23/17 at 2022 . General HPI - HPI Summary HPI Summary: This patient is a 46 year old F presenting to [facility] with a chief complaint of sore throat, congested chest, cough since last week. The patient rates the pain 2/10 in severity. Symptoms alleviated by nothing. Patient reports cough, sinus pressure, irritation in the ears, productive cough (green), subjective fever, wheezing, post nasal drip when in bed, green mucous, vomiting and diarrhea. Patient denies post nasal drip when not lying down. PMHx includes asthma, anxiety, bipolar disorder, DM, sleep apnea. - History of Current Complaint Chief Complaint: UCRespiratory Stated Complaint: VOMITING, COUGH Time Seen by Provider: 03/23/17 18:22 Hx Obtained From: Patient Hx Last Menstrual Period: hysterectomy 2011 Onset/Duration: Lasting Weeks - 1 week ago Timing: Constant Onset Severity: Mild Current Severity: Mild Pain Intensity: 2 Associated Signs & Symptoms: Positive: Cough - Productive (green), Vomiting, Wheezing, Other - sore throat, congested chest, post nasal drip (only when upright/standing), ear irritation - Allergy/Home Medications Allergies/Adverse Reactions: Allergies Allergy/AdvReac Type Severity Reaction Status Date / Time Adhesive Tape Allergy Severe Rash Verified 03/23/17 17:15 Aspirin Allergy Severe Hives/Diff. Verified 03/23/17 17:15 Breathing/I tching Morphine Allergy Severe Hives/Diff. Verified 03/23/17 17:15 Breathing/I tching Amoxicillin Allergy Intermediate Hives Verified 03/23/17 17:15 Metformin AdvReac Severe n/v/d Verified 03/23/17 17:15 PMH/Surg Hx/FS Hx/Imm Hx Endocrine History: Diabetes Respiratory History: Asthma, Other - Sleep apnea Other Respiratory History: Sleep apnea Psychological History: Anxiety, Bipolar Disorder Other History Of: - Surgical History Surgical History: Yes Surgery Procedure, Year, and Place: DISCECTOMY L4-L5 2007. HYSTERECTOMY 2011. RT BREAST LUMP REMOVED- BENIGN 2004. GALLBLADDER 2006. 3 C-SECTIONS 96 , 98, 99; Gastric sleeve, Pacer placed 02/28. GASTRIC SLEEVE SURGERY 2014 - Family History Known Family History: Positive: Cardiac Disease - father at 44, Diabetes, Other - cancer Family History: Heart disease: Father, [place] age 46. Stroke: Grandmother, grandfather. Seizures: Daughter - Social History Alcohol Use: None Substance Use Type: Prescribed Substance Use Comment - Amount & Last Used: Xanax - but lost bottle 4 days ago Smoking Status (MU): Never Smoked Tobacco Have You Smoked in the Last Year: No - Pt states she has never smoked before in her life. - Immunization History Most Recent Influenza Vaccination: this season Most Recent Tetanus Shot: ~2012 Most Recent Pneumonia Vaccination: 2 years ago Review of Systems Constitutional: Negative Skin: Negative Eyes: Negative ENT: Sore Throat, Ear Ache, Nasal Discharge - post nasal drip (present when not standing/upright) Respiratory: Cough - Productive (green), Other - Congested chest, wheezing Cardiovascular: Negative Gastrointestinal: Vomiting, Diarrhea Genitourinary: Negative Motor: Negative Neurovascular: Negative Musculoskeletal: Negative Neurological: Negative Psychological: Negative All Other Systems Reviewed And Are Negative: Yes Physical Exam Triage Information Reviewed: Yes Vital Signs: Initial Vital Signs Temp 98.7 F 03/23/17 17:09 Pulse 113 03/23/17 17:09 Resp 18 03/23/17 17:09 BP 118/71 03/23/17 17:09 Pulse Ox 98 03/23/17 17:09 Vital Signs Reviewed: Yes - Additional Comments General: well-appearing, no pain distress Skin: warm, color reflects adequate perfusion, dry Head: normal Eyes: EOMI, HORACIO ENT: Rhinorrhea, Posterior pharynx erythema Neck: supple, nontender Respiratory: CTA, breath sounds present Cardiovascular: RRR Abdomen: soft, nontender Bowel: present Musculoskeletal: normal, strength/ROM intact Neurological: normal, sensory/motor intact, A&O x3 Psychological: affect/mood appropriate Course/Dx - Course Course Of Treatment: Allergies noted, medication reviewed - Differential Dx - Multi-Symptom Provider Diagnoses: SINUSITIS Discharge - Discharge Plan Condition: Stable Disposition: HOME Prescriptions: Azithromyxin BUCK (NF) [Z-Buck (Zithromax) 250 mg tabs #6] 2 tab PO .TODAY, THEN 1 DAILY #6 tab Fluconazole 150 MG (NF) [Diflucan 150 mg (NF)] 150 mg PO ONCE PRN #1 tab PRN Reason: Pruritis Patient Education Materials: Sinusitis (ED) Referrals: Paige Barnett MD [Primary Care Provider] - Additional Instructions: FOLLOW UP WITH YOUR DOCTOR. GET RECHECKED FOR ANY WORSENING OF YOUR CONDITION OR QUESTIONS OR CONCERNS. The documentation as recorded by the Michelle noel Abhishek accurately reflects the service I personally performed and the decisions made by me, Doug Lei MD.
== END 2017-03-23 19:20 | disposition home or self-care (01) ==
LOC: UCEAST 17:03
DX: J32.9 Chronic sinusitis, unspecified (principal); Z88.6 Allergy status to analgesic agent; Z88.1 Allergy status to other antibiotic agents; E11.9 Type 2 diabetes mellitus without complications; J45.909 Unspecified asthma, uncomplicated
CPT/HCPCS: 87651; 99212; G0463

== ENCOUNTER 2017-11-22 10:01 | Emergency (ER) | payer OTHER ==
[2017-11-22 10:12] VITALS: BP 154/89
--- NOTE | 2017-11-22 11:07 | UC ---
Alphonso De Jesus Stephanie, scribed for [facility] Hospital[facility]ais[facility] on 11/22/17 at 1027 . Psychiatric Complaint HPI - HPI Summary HPI Summary: In Room Note: The pt is a 47 y/o F presenting to with c/o hearing voices and seeing things. Symptoms include loss of concentration and sleep disturbances. The pt was admitted to [facility] due to an unintentional OD and I now in withdrawal. She denies SI or suicide attempt. She denies hospitalizations for cardiac disease. The pt is requesting psych medications so she could rest and get through today until she sees her psychologist tomorrow. The pt states she has a cold. Note: Vital signs stable. Afebrile. BP 154/89. Pt with hx of HTN, bipolar disorder, type 2 diabetes. Visit hx: anxiety, mood disorder, chronic depression. No record of SI or attempt Nurse Note: Pt taken off all her psych meds by [facility] after overdose on Thursday - History Of Current Complaint Chief Complaint: UCPsych Stated Complaint: HEARING VOICES Time Seen by Provider: 11/22/17 10:47 Hx Obtained From: Patient Hx Last Menstrual Period: hyster ?: No Onset/Duration: Gradual Onset Timing: Constant Severity Currently: Moderate Aggravating Factor(s): Nothing Alleviating Factor(s): Nothing Associated Signs And Symptoms: Sleep Disturbance Related History: Positive For: Prior Psychiatric Issues - Allergies/Home Medications Allergies/Adverse Reactions: Allergies Allergy/AdvReac Type Severity Reaction Status Date / Time Adhesive Tape Allergy Severe Rash Verified 10/14/17 08:31 aspirin Allergy Severe Hives/Diff. Verified 10/14/17 08:31 Breathing/I tching morphine Allergy Severe Hives/Diff. Verified 10/14/17 08:31 Breathing/I tching amoxicillin Allergy Intermediate Hives Verified 10/14/17 08:31 PMH/Surg Hx/FS Hx/Imm Hx Previously Healthy: No Cardiovascular History: Cardiac Disease, Hypertension, Pacemaker/ICD Psychological History: Anxiety, Bipolar Disorder, Schizophrenia Other History Of: - Surgical History Surgical History: Yes Surgery Procedure, Year, and Place: DISCECTOMY L4-L5 2007. HYSTERECTOMY 2011. RT BREAST LUMP REMOVED- BENIGN 2004. GALLBLADDER 2006. 3 C-SECTIONS 96 , 98, 99; Gastric sleeve, Pacer placed 02/28. GASTRIC SLEEVE SURGERY 2014 - Family History Known Family History: Positive: Cardiac Disease - father at 44, Diabetes, Other - cancer Family History: Heart disease: Father, [place] age 46. Stroke: Grandmother, grandfather. Seizures: Daughter - Social History Occupation: Disabled Lives: Alone Alcohol Use: None Substance Use Type: None Substance Use Comment - Amount & Last Used: Xanax - but lost bottle 4 days ago Smoking Status (MU): Never Smoked Tobacco Have You Smoked in the Last Year: No - Pt states she has never smoked before in her life. Household Exposure Type: Cigarettes - Immunization History Most Recent Influenza Vaccination: this season Most Recent Tetanus Shot: ~2012 Most Recent Pneumonia Vaccination: 2 years ago Review of Systems Constitutional: Negative Skin: Negative Eyes: Negative ENT: Negative Respiratory: Negative Cardiovascular: Negative Gastrointestinal: Negative Genitourinary: Negative Motor: Negative Neurovascular: Negative Musculoskeletal: Negative Neurological: Negative Psychological: Other - HEARING VOICES, SEEING THINGS, SLEEP DISTURBANCES. All Other Systems Reviewed And Are Negative: Yes - Comments Additional Review of Systems Comments: POSITIVE: HEARING VOICES, SEEING THINGS, SLEEP DISTURBANCES NEGATIVE: SI Physical Exam - Summary Physical Exam Summary: Appearance: The patient is well-appearing, is in no pain distress, and is well- nourished. Eyes: Conjunctiva are clear. ENT: The hearing is grossly normal, the pharynx is normal, and the TMs are normal. There is no muffled or hoarse voice. Neck: The neck is supple and there is no lymphadenopathy. Respiratory: The chest is nontender. The lungs are clear, there are normal breath sounds, and there is no respiratory distress. Cardiovascular: Heart is regular rate and rhythm. There is no murmur. Abdomen: The abdomen is soft and nontender. There is no organomegaly. Bowel sounds: present Musculoskeletal: Strength is intact. The patient moves all extremities. Neurological: The patient is alert. Psychological: The patient displays age appropriate behavior, ORIENTED X3, APPROPRIATELY CONVERSANT, NO FLAT AFFECT, DENIES SI OR ATTEMPTS. Skin: Negative for rashes. Triage Information Reviewed: Yes Vital Signs: Initial Vital Signs Temp 98 F 11/22/17 10:08 Pulse 101 11/22/17 10:08 Resp 20 11/22/17 10:08 BP 154/89 11/22/17 10:08 Pulse Ox 100 11/22/17 10:08 Vital Signs Reviewed: Yes Psych Complaint Course/Dx - Course Course Of Treatment: Elevated BP but has current hypertension diagnosis and treatment. This should be rechecked a few times in the next month. 47-year-old with a complex past medical history including a psychotic episodes. She is an excellent historian and states that she hears voices all the time when she is on medication, they are well controlled. She was admitted with an unintentional overdose 6 days ago. She has been off her medication since then. She is requesting one pill each of Latuda, trazodone, and alprazolam. Her physical examination is unremarkable. She is conversant. She has normal affect. She denies suicide ideation or attempts. I have prescribed the 3 pills that she requires. She will follow up with her psychiatrist tomorrow morning. - Differential Dx/Diagnosis Differential Diagnosis/HQI/PQRI: Acute Psychosis, Other - drug refill Provider Diagnoses: drug refill for worsening psychotic symptoms Discharge - Sign-Out/Discharge Documenting (check all that apply): Discharge/Admit/Transfer - Discharge Plan Condition: Stable Disposition: HOME Prescriptions: ALPRAZolam [Alprazolam] 1 mg PO ONCE #1 tablet MDD 1 Lurasidone(*) [Latuda] 40 mg PO DAILY #1 tab MDD 1 traZODone TAB* [Desyrel TAB*] 100 mg PO BEDTIME #1 tab MDD 1 Patient Education Materials: Psychotic Disorder (ED) Referrals: Paige Barnett MD [Primary Care Provider] - Additional Instructions: Your blood pressure reading today was 154/89, indicating HYPERTENSION. Follow- up with your primary care provider within 4 weeks for blood pressure readings and further evaluation. PLEASE SEEK CARE AT THE EMERGENCY DEPARTMENT IF SYMPTOMS WORSEN OR IF NEW SYMPTOMS DEVELOP. FOLLOW UP WITH YOUR PRIMARY CARE PHYSICIAN. As we discussed, it appears that require your medications to decrease the intensity of hearing voices and lack of concentration. You will be seeing your own psychiatrist tomorrow morning. I will prescribe 1 Latuda, 40 mg, trazodone 100 mg, one pill, and Alprazolam 1 mg, one pill. If there is any difficulty at the drugstore call us and we will work this out with the pharmacist. Go to the emergency department for any increasing symptoms or concerns. - Billing Disposition and Condition Condition: STABLE Disposition: Home The documentation as recorded by the Alphonso noel Stephanie accurately reflects the service I personally performed and the decisions made by me, Faisal Ray MD.
== END 2017-11-22 11:20 | disposition home or self-care (01) ==
LOC: UCEAST 10:01
DX: R44.0 Auditory hallucinations (principal); Z76.0 Encounter for issue of repeat prescription; I11.9 Hypertensive heart disease without heart failure; Z95.810 Presence of automatic (implantable) cardiac defibrillator; F41.9 Anxiety disorder, unspecified; F31.9 Bipolar disorder, unspecified; Z88.6 Allergy status to analgesic agent; Z88.5 Allergy status to narcotic agent; Z88.0 Allergy status to penicillin; Z91.048 Other nonmedicinal substance allergy status; Z82.49 Family history of ischemic heart disease and other diseases of the circulatory system; Z83.3 Family history of diabetes mellitus; Z80.9 Family history of malignant neoplasm, unspecified; Z82.3 Family history of stroke; Z82.0 Family history of epilepsy and other diseases of the nervous system
CPT/HCPCS: 99212; G0463

== ENCOUNTER 2017-12-24 14:17 | Emergency (ER) | payer OTHER ==
[2017-12-24 14:31] VITALS: BP 129/72
--- NOTE | 2017-12-24 14:35 | UC ---
Knee Pain HPI - HPI Summary HPI Summary: 47 yo female presents with LEFT knee pain s/p fall earlier today. She tells me that she falls often - today she tripped on an uneven surface and fell directly onto her left knee. Had immediate pain soon followed by swelling. She is able to ambulate without assistance, but has significant pain. Takes daily narcotic pain medication for various other pains. Denies numbness or tingling. - History of Current Complaint Chief Complaint: UCLowerExtremity Stated Complaint: KNEE INJURY Time Seen by Provider: 12/24/17 14:33 Hx Obtained From: Patient Hx Last Menstrual Period: hyster Onset/Duration: Sudden Onset Severity Initially: Moderate Severity Currently: Moderate Pain Intensity: 7 Pain Scale Used: 0-10 Numeric - Allergies/Home Medications Allergies/Adverse Reactions: Allergies Allergy/AdvReac Type Severity Reaction Status Date / Time Adhesive Tape Allergy Severe Rash Verified 12/24/17 14:31 aspirin Allergy Severe Hives/Diff. Verified 12/24/17 14:31 Breathing/I tching morphine Allergy Severe Hives/Diff. Verified 12/24/17 14:31 Breathing/I tching amoxicillin Allergy Intermediate Hives Verified 12/24/17 14:31 PMH/Surg Hx/FS Hx/Imm Hx - Additional Past Medical History Additional PMH: Chronic pain Endocrine History: Diabetes, Dyslipidemia Cardiovascular History: Hypertension GI/ History: Gastroesophageal Reflux Psychological History: Bipolar Disorder Other History Of: - Surgical History Surgical History: Yes Surgery Procedure, Year, and Place: DISCECTOMY L4-L5 2007. HYSTERECTOMY 2011. RT BREAST LUMP REMOVED- BENIGN 2004. GALLBLADDER 2006. 3 C-SECTIONS 96 , 98, 99; Gastric sleeve, Pacer placed 02/28. GASTRIC SLEEVE SURGERY 2014 - Family History Known Family History: Positive: None, Cardiac Disease - father at 44, Diabetes, Other - cancer Family History: Heart disease: Father, [place] age 46. Stroke: Grandmother, grandfather. Seizures: Daughter - Social History Lives: With Family Alcohol Use: None Substance Use Type: None Substance Use Comment - Amount & Last Used: Xanax - but lost bottle 4 days ago Smoking Status (MU): Never Smoked Tobacco Have You Smoked in the Last Year: No - Pt states she has never smoked before in her life. Household Exposure Type: Cigarettes - Immunization History Most Recent Influenza Vaccination: this season Most Recent Tetanus Shot: ~2012 Most Recent Pneumonia Vaccination: 2 years ago Review of Systems Constitutional: Negative Skin: Negative Respiratory: Negative Cardiovascular: Negative Neurovascular: Negative Musculoskeletal: Other: - Left knee pain Neurological: Negative Psychological: Negative All Other Systems Reviewed And Are Negative: Yes Physical Exam - Summary Physical Exam Summary: GENERAL: NAD. Obese. No pain distress. SKIN: No rashes, sores, lesions, or open wounds. NECK: Supple. Nontender. No lymphadenopathy. CHEST: No accessory muscle use. Breathing comfortably and in no distress. CV: . Pulses intact popliteal, PT, and DP. Brisk cap refill. MSK: LEFT KNEE: TTP all about left knee. Painful during flexion. Comfortable in extension. Moderate edema. Pain with A/P drawer, but no increased laxity. Pain with varus/valgus stress. NEURO: Alert. Sensations intact and symmetric B/L LEs PSYCH: Age appropriate behavior. Triage Information Reviewed: Yes Vital Signs: Initial Vital Signs Temp 97.8 F 12/24/17 14:25 Pulse 82 12/24/17 14:25 Resp 18 12/24/17 14:25 BP 129/72 12/24/17 14:25 Pulse Ox 94 12/24/17 14:25 Knee Pain Course/Dx - Course Course Of Treatment: XR: IMPRESSION: NO ACUTE OSSEOUS INJURY. IF SYMPTOMS PERSIST, RECOMMEND REPEAT IMAGING. Suspect knee contusion. She elected to try crutches and an MIGUEL wrap. I advised her to continue her at home pain medication , RICE, and call Orthopedics for a f/u appt. - Differential Dx/Diagnosis Provider Diagnoses: Left knee contusion s/p fall Discharge - Sign-Out/Discharge Documenting (check all that apply): Patient Departure - Discharge Plan Condition: Stable Disposition: HOME Patient Education Materials: Contusion in Adults (ED) Referrals: Paige Barnett MD [Primary Care Provider] - Carlene Butler MD [Medical Doctor] - As Soon As Possible Additional Instructions: If you develop a fever, shortness of breath, chest pain, new or worsening symptoms - please call your PCP or go to the ED. 1) Rest, Ice, and elevate your knee as much as possible to reduce pain and swelling 2) Take your at home pain medication as prescribed 3) Use the MIGUEL wrap and crutches for pain relief 4) Please call Orthopedics at the number below to schedule a follow up appointment as soon as possible - Billing Disposition and Condition Condition: STABLE Disposition: Home
--- NOTE | 2017-12-24 15:03 | RAD ---
HISTORY: Fall. Pain. Swelling COMPARISONS: None VIEWS: 4, Frontal, lateral, axial, and oblique views of the left knee FINDINGS: BONE DENSITY: Normal. BONES: There is no displaced fracture. JOINTS: There is no arthropathy. There is no suprapatellar joint effusion or lipohemarthrosis. ALIGNMENT: There is no dislocation. SOFT TISSUES: Unremarkable. OTHER FINDINGS: None. IMPRESSION: NO ACUTE OSSEOUS INJURY. IF SYMPTOMS PERSIST, RECOMMEND REPEAT IMAGING.
== END 2017-12-24 15:25 | disposition home or self-care (01) ==
LOC: UCEAST 14:17
DX: S80.02XA Contusion of left knee, initial encounter (principal); W01.0XXA Fall on same level from slipping, tripping and stumbling without subsequent striking against object, initial encounter; Z91.81 History of falling; Y93.9 Activity, unspecified; Y92.9 Unspecified place or not applicable; E11.9 Type 2 diabetes mellitus without complications; E78.5 Hyperlipidemia, unspecified; I10 Essential (primary) hypertension; K21.9 Gastro-esophageal reflux disease without esophagitis; F31.9 Bipolar disorder, unspecified; Z88.6 Allergy status to analgesic agent; Z88.5 Allergy status to narcotic agent; Z88.0 Allergy status to penicillin; Z91.048 Other nonmedicinal substance allergy status; Z82.49 Family history of ischemic heart disease and other diseases of the circulatory system; Z83.3 Family history of diabetes mellitus; Z82.3 Family history of stroke; Z82.0 Family history of epilepsy and other diseases of the nervous system; Z80.9 Family history of malignant neoplasm, unspecified
CPT/HCPCS: 99213; G0463

== ENCOUNTER 2018-03-02 09:11 | Emergency (ER) | payer OTHER ==
[2018-03-02 09:31] VITALS: BP 121/85
--- NOTE | 2018-03-02 09:40 | UC ---
Upper Extremity HPI - HPI Summary HPI Summary: This patient is a 47 year old F presenting to [facility] with a chief complaint of right wrist pain since this morning. At 0800 this morning the patient was bending down to pick something up and got dizzy which caused her to fall, tripping over vacuum, and land on her right wrist. She states that she did not sleep well last night and gets dizzy often when she is sleep deprived and when she bends over. Pt states she feels fine now and this happens 2-3 times a week. The patient rates the pain 10/10 in severity. Symptoms not alleviated by ibuprofen 800 mg. Patient denies LOC, any bleeding from HEENT did not strike head, open wounds, ABD pain, n/v, head injury, and shoulder pain. No other injuries. Pt is right handed and has injured this hand in the past when she was a teenager but no serious medical intervention was needed. She is followed in the pain clinic for chronic back pain. Pt is followed by orthopedics for shoulder (Dr. Helton) and LE . P Patients medications reviewed this visit. - History of Current Complaint Chief Complaint: UCUpperExtremity Stated Complaint: WRIST INJURY Hx Obtained From: Patient Hx Last Menstrual Period: hyster Onset/Duration: Lasting Hours, Still Present Severity Initially: Severe Severity Currently: Severe Pain Intensity: 10 Pain Scale Used: 0-10 Numeric Location Of Pain: Is Discrete @ - right wrist pain Associated Signs And Symptoms: Positive: Other - LOC and head injury - Allergies/Home Medications Allergies/Adverse Reactions: Allergies Allergy/AdvReac Type Severity Reaction Status Date / Time Adhesive Tape Allergy Severe Rash Verified 03/02/18 09:18 aspirin Allergy Severe Hives/Diff. Verified 03/02/18 09:18 Breathing/I tching morphine Allergy Severe Hives/Diff. Verified 03/02/18 09:18 Breathing/I tching amoxicillin Allergy Intermediate Hives Verified 03/02/18 09:18 Home Medications: Home Medications Ibuprofen TAB* [Motrin TAB* 800 MG] 800 mg PO ONCE 03/02/18 [History Confirmed 03/02/18] PMH/Surg Hx/FS Hx/Imm Hx Previously Healthy: No Endocrine History: Diabetes Cardiovascular History: Hypertension, Pacemaker/ICD Respiratory History: COPD, Asthma Psychological History: Anxiety, Depression, Bipolar Disorder Other History Of: - Surgical History Surgical History: Yes Surgery Procedure, Year, and Place: DISCECTOMY L4-L5 2007. HYSTERECTOMY 2011. RT BREAST LUMP REMOVED- BENIGN 2004. GALLBLADDER 2006. 3 C-SECTIONS 96 , 98, 99; Gastric sleeve, Pacer placed 02/28. GASTRIC SLEEVE SURGERY 2014 - Family History Known Family History: Positive: Cardiac Disease - father at 44, Diabetes, Other - cancer Family History: Heart disease: Father, [place] age 46. Stroke: Grandmother, grandfather. Seizures: Daughter - Social History Occupation: Disabled Alcohol Use: None Substance Use Type: None Substance Use Comment - Amount & Last Used: Xanax - but lost bottle 4 days ago Smoking Status (MU): Never Smoked Tobacco Have You Smoked in the Last Year: No - Pt states she has never smoked before in her life. Household Exposure Type: Cigarettes - Immunization History Most Recent Influenza Vaccination: this season Most Recent Tetanus Shot: ~2012 Most Recent Pneumonia Vaccination: 2 years ago Review of Systems Constitutional: Negative Skin: Negative Neurovascular: Other - dizzy Musculoskeletal: Other: - right wrist pain Neurological: Negative - LOC All Other Systems Reviewed And Are Negative: Yes Physical Exam - Summary Physical Exam Summary: Vital Signs Reviewed: Yes A+Ox3, no distress Eyes: Conjunctiva Clear, HORACIO. EOM intact and full ENT: Hearing grossly normal TM x 2 clear, mmoist, uvula midline, no exudate, no erythema no hemotypm, no septal hematoma Neck: Positive: Supple Respiratory: Positive: No respiratory distress, No accessory muscle use + CTA throughout no w/r Cardiovascular: RRR nl s1, s2 no m/r CBT <2 sec Musculoskeletal Exam: no spinous process pain c/t/l/s Full AROM + abduct, extend right shoulder + flex/ext right elbow + pain in wrist with pronate/ supinate, + TTP lateral distal wrist and 5th MC Neurological: Positive: Alert, + sensation throughout pain with thumb up, a ok , finger cross Psychological: Positive: Normal Response To Family Skin: Positive: no rash, no ecchymosis no abraison Triage Information Reviewed: Yes Vital Signs: Initial Vital Signs Temp 97.7 F 03/02/18 09:22 Pulse 95 03/02/18 09:22 Resp 18 03/02/18 09:22 BP 121/85 03/02/18 09:22 Pulse Ox 98 09/18/18 09:22 Procedures - Splinting Right Upper Extremity Location: RUE Hand-Made Type: orthoglass Splint: volar Pre-Proc Neuro Vasc Exam: normal Post-Proc Neuro Vasc Exam: normal Diagnostics - Radiology wrist Xray Radiology Interpretation Completed By: Radiologist - TRANSVERSE NONDISPLACED FRACTURE OF THE DISTAL RADIAL METAPHYSIS. Dr Haines has reviewed this report. Re-Evaluation - Re-Evaluation First Eval Comment: Reviewed images with patient. Patient with a nondisplaced fracture of the distal radius. Reviewed x-rays. Patient placed in a splint crafted by me. Patient placed in a sling. Recommended ice and elevate. Patient previously treat patient of orthopedics in [facility]. We'll refer her back. Patient comfortable in agreement with plan. Patient did have a ring on her right index finger this was removed intact and patient put in her pocket.Pt declined labelled specimen cup Upper Extremity Course/Dx - Course Course Of Treatment: Patient presents to urgent care complaining of right wrist pain that happened after she became dizzy and fall while bending over. Patient states this has happened in the past. Patient without any other complaints other than right wrist pain. Patient without any other injuries besides right wrist pain. On exam pain on the lateral aspect of the wrist as well as the base of her fifth metacarpal. We'll give patient Tylenol she took ibuprofen. Ice is applied. We'll image. Patient comfortable in agreement with plan. - Differential Dx/Diagnosis Provider Diagnoses: right non displaced distal radius fx, closed Discharge - Sign-Out/Discharge Documenting (check all that apply): Patient Departure All imaging exams completed and their final reports reviewed: Yes - Discharge Plan Condition: Stable Disposition: HOME Patient Education Materials: Wrist Fracture in Adults (ED) Referrals: Macario Helton MD [Medical Doctor] - Additional Instructions: -wear sling for comfort and support. relax your shoulder so the sling holds the weight of your shoulder -apply ice (20 min at a time) every 2-3 hours for the next 2 days --Okay to alternate ibuprofen (Advil, Motrin) and Tylenol every 3 hours for pain. Take with food. Do NOT take for more than 4-5 days. - apply ice (wrapped in a towel) 20 minutes at a time, 2-3 times a day for swelling -Contact the orthopedic provider today to schedule a follow-up appointment this week - Billing Disposition and Condition Condition: STABLE Disposition: Home - Attestation Statements Document Initiated by Scribe: Yes Documenting Scribe: Mario Alberto Ragsdale Provider For Whom Stacy is Documenting (Include Credential): Rosita Haines MD Scribe Attestation: Mario Alberto De Jesus , scribed for Rosita Haines MD on 03/02/18 at 1047. Scribe Documentation Reviewed: Yes Provider Attestation: The documentation as recorded by the Mario Alberto noel accurately reflects the service I personally performed and the decisions made by me, Rosita Haines MD
[2018-03-02] MEDS ORDERED: Acetaminophen TAB* 325 MG PO ONE (09:53)
--- NOTE | 2018-03-02 10:24 | RAD ---
HISTORY: fall, pain lateral wrist, 5th COMPARISONS: May 24, 2014 VIEWS: 3 , Frontal, lateral, and oblique views of the right wrist FINDINGS: BONE DENSITY: Normal. BONES: There is a transverse undisplaced fracture of the distal radial metaphysis. JOINTS: There is no arthropathy. ALIGNMENT: There is no dislocation. SOFT TISSUES: Unremarkable. OTHER FINDINGS: None. IMPRESSION: TRANSVERSE NONDISPLACED FRACTURE OF THE DISTAL RADIAL METAPHYSIS.
== END 2018-03-02 10:57 | disposition home or self-care (01) ==
LOC: UCEAST 09:11
DX: S52.591A Other fractures of lower end of right radius, initial encounter for closed fracture (principal); W01.0XXA Fall on same level from slipping, tripping and stumbling without subsequent striking against object, initial encounter; Y92.9 Unspecified place or not applicable; Z88.6 Allergy status to analgesic agent; Z88.5 Allergy status to narcotic agent; Z88.3 Allergy status to other anti-infective agents
CPT/HCPCS: 99211; A9270-GY; G0463

== ENCOUNTER 2018-12-14 14:41 | Emergency (ER) | payer OTHER ==
[2018-12-14] MEDS ORDERED: oxyCODONE/Acetamin 5/325 MG* TAB PO ONE (16:38)
[2018-12-14] MEDS ORDERED: Orphenadrine Citrate IV* 30 MG/ML 2 ML VIAL IM ONE (16:38)
[2018-12-14] MEDS ORDERED: Ketorolac INJ* 30 MG/ML 1 ML VIAL IM ONE (16:39)
--- NOTE | 2018-12-14 16:53 | ED ---
Back Pain - HPI Summary HPI Summary: 48 year old female presents with back pain today. States she has a history of back pain but is more intense. She states she was bending over and felt a snap in her lower back today. States does have pain and tingling in the legs with right worst than left. No weakness. Was able to ambulate into the ED. Denies any urinary symptoms. No loss of bowel or bladder. No saddle anesthesias. No chest pressure or shortness of breath. Took her two daily Percocet with some relief in the pain but now has returned. - History of Current Complaint Chief Complaint: EDBackInjuryPain Stated Complaint: BACK PAIN PER PT Time Seen by Provider: 12/14/18 15:25 Hx Last Menstrual Period: hyster Pain Intensity: 10 - Allergies/Home Medications Allergies/Adverse Reactions: Allergies Allergy/AdvReac Type Severity Reaction Status Date / Time Adhesive Tape Allergy Severe Rash Verified 12/14/18 14:47 aspirin Allergy Severe Hives/Diff. Verified 12/14/18 14:47 Breathing/I tching morphine Allergy Severe Hives/Diff. Verified 12/14/18 14:47 Breathing/I tching amoxicillin Allergy Intermediate Hives Verified 12/14/18 14:47 PMH/Surg Hx/FS Hx/Imm Hx Endocrine/Hematology History: Reports: Hx Diabetes, Hx Thyroid Disease, Hx Anemia Denies: Hx Anticoagulant Therapy Cardiovascular History: Reports: Hx Angina, Hx Hypercholesterolemia, Hx Hypertension, Hx Pacemaker/ICD - 2016, Hx Valvular Heart Disease - MVP, Other Cardiovascular Problems/Disorders - MITRAL VALVE PROLAPSE Denies: Hx Congestive Heart Failure, Hx Myocardial Infarction Respiratory History: Reports: Hx Asthma, Hx Chronic Bronchitis, Hx Chronic Obstructive Pulmonary Disease (COPD), Hx Pneumonia, Hx Sleep Apnea GI History: Reports: Hx Diverticulosis, Hx Gastroesophageal Reflux Disease - NO MEDICATION FOR- NO PROBLEMS SINCE GASTRIC SURGERY, Other GI Disorders - GASTRIC SLEEVE 1+ YEAR AGO History: Reports: Other Problems/Disorders - 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 Musculoskeletal History: Reports: Hx Arthritis - MANY JOINTS - back, hips primarily, Hx Back Problems - DDD, Hx Tendonitis Denies: Hx Rheumatoid Arthritis, Hx Osteoporosis Sensory History: Reports: Hx Contacts or Glasses - GLASSES Opthamlomology History: Reports: Hx Contacts or Glasses - GLASSES Neurological History: Reports: Hx Headaches, Hx Migraine, Other Neuro Impairments/Disorders - siatic nerve pain Psychiatric History: Reports: Hx Panic Disorder - ANXIETY, Hx Post Traumatic Stress Disorder, Hx Inpatient Treatment, Hx Community Mental Health Tx, Hx Bipolar Disorder, Hx Suicide Attempt, Other Psychiatric Issues/Disorders - reports: "personality d/o" Denies: Hx Eating Disorder - 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 HYSTERECTOMY 2011. RT BREAST LUMP REMOVED- BENIGN 2004. GALLBLADDER 2006. 3 C-SECTIONS 96 , 98, 99; Gastric sleeve, Pacer placed 02/28. GASTRIC SLEEVE SURGERY 2014 Hx Anesthesia Reactions: No Infectious Disease History: No Infectious Disease History: Denies: Hx Clostridium Difficile, Hx of Known/Suspected MRSA, Hx Shingles, Hx Tuberculosis, Hx Known/Suspected VRE, Hx Known/Suspected VRSA, History Other Infectious Disease, Traveled Outside the [place] in Last 30 Days - Family History Known Family History: Positive: Cardiac Disease - father at 44, Diabetes, Other - cancer Family History: Heart disease: Father, [place] age 46. Stroke: Grandmother, grandfather. Seizures: Daughter - Social History Alcohol Use: None Hx Substance Use: No Substance Use Type: Reports: None Substance Use Comment - Amount & Last Used: Xanax - but lost bottle 4 days ago Hx Tobacco Use: No Smoking Status (MU): Never Smoked Tobacco Have You Smoked in the Last Year: No - Pt states she has never smoked before in her life. Review of Systems Negative: Fever Negative: Chest Pain Negative: Shortness Of Breath Positive: Myalgia - back pain All Other Systems Reviewed And Are Negative: Yes Physical Exam Triage Information Reviewed: Yes Vital Signs On Initial Exam: Initial Vitals Temp Pulse Resp BP Pulse Ox 98.1 F 97 16 97/79 97 12/14/18 14:43 12/14/18 14:43 12/14/18 14:43 12/14/18 14:43 12/14/18 14:43 Vital Signs Reviewed: Yes Appearance: Positive: Well-Appearing Skin: Positive: Warm, Dry Head/Face: Positive: Normal Head/Face Inspection Eyes: Positive: Normal, EOMI, HORACIO, Conjunctiva Clear ENT: Positive: Normal ENT inspection, Pharynx normal Respiratory/Lung Sounds: Positive: Clear to Auscultation, Breath Sounds Present Cardiovascular: Positive: Normal, RRR Abdomen Description: Positive: Nontender, Soft Bowel Sounds: Positive: Present Musculoskeletal: Positive: Limited @ - back, Other - pos SLR, tenderness lower back, sensation grossly intact Neurological: Positive: Normal Psychiatric: Positive: Normal Diagnostics - Vital Signs Vital Signs Temp Pulse Resp BP Pulse Ox 12/14/18 14:43 98.1 F 97 16 97/79 97 - Laboratory Lab Statement: Any lab studies that have been ordered have been reviewed, and results considered in the medical decision making process. - Radiology back Radiology Interpretation Completed By: Radiologist Summary of Radiographic Findings: IMPRESSION: UNILATERAL PARS DEFECT ON THE RIGHT AT L4 WITH EVIDENCE OF A HEALED PARS DEFECT ON THE. LEFT. DEGENERATIVE DISC DISEASE AND OSTEOARTHRITIS MOST PRONOUNCED ALONG THE LOWER LUMBAR SPINE. THERE IS A PROBABLE CENTRAL DISC PROTRUSION AT L4-L5. THERE IS NEURAL FORAMINAL NARROWING DESCRIBED ABOVE. THERE IS NO OSSEOUS CENTRAL CANAL. STENOSIS. Re-Evaluation - Re-Evaluation First Eval Re-Evaluation Time: 18:12 Change: Improved Comment: feeling better after pain medication Back Pain Course/Dx - Course Course Of Treatment: 48 year old female presents with back pain today. States she has a history of back pain but is more intense. She states she was bending over and felt a snap in her lower back today. States does have pain and tingling in the legs with right worst than left. No weakness. Was able to ambulate into the ED. Denies any urinary symptoms. No loss of bowel or bladder. No saddle anesthesias. No chest pressure or shortness of breath. Took her two daily Percocet with some relief in the pain but now has returned. On exam tenderness lower back. pos straight leg raise. Neurovascularly intact. CT shows no acute findings. will treat with flexeril and lidocaine patch. patient understand and agrees with plan. - Diagnoses Differential Diagnosis/HQI/PQRI: Positive: Cauda Equina Syndrome, Fracture, Herniated Disc Provider Diagnoses: Back pain Discharge - Sign-Out/Discharge Documenting (check all that apply): Patient Departure Patient Received Moderate/Deep Sedation with Procedure: No - Discharge Plan Condition: Good Disposition: HOME Patient Education Materials: Back Pain (ED) Referrals: Paige Barnett MD [Primary Care Provider] - Additional Instructions: Take muscle relaxers three times a day Apply lidocaine patches to area for up to 12 hours in one 24 hour period Use ibuprofen or Tylenol for pain every 6 hours ice/heat area, move as much as possible Follow up with primary within 5 days Return to ED if develop any new or worsening symptoms - Billing Disposition and Condition Condition: GOOD Disposition: Home
[2018-12-14 17:38] LABS: Urine Appearance Cloudy; Urine Bacteria 1+ (Absent); Urine Bilirubin Negative (Negative); Urine Blood Negative (Negative); Urine Color Amber; Urine Glucose Negative (Negative); Urine Ketones Negative (Negative); Urine Nitrite Negative (Negative); Urine Protein 1+(30 mg/dL) (Negative); Urine Red Blood Cell Absent (Absent); Urine Specific Gravity 1.028 (1.010-1.030); Urine Squamous Epithelial Cell Present (Absent); Urine Urobilinogen Negative (Negative); Urine White Blood Cell Trace(0-5/hpf) (Absent)
[2018-12-14 18:30] VITALS: BP 143/56
== END 2018-12-14 18:29 | disposition home or self-care (01) ==
LOC: ED 14:41
DX: M54.9 Dorsalgia, unspecified (principal); I10 Essential (primary) hypertension; J44.9 Chronic obstructive pulmonary disease, unspecified; M51.36 Other intervertebral disc degeneration, lumbar region; M47.9 Spondylosis, unspecified; Z88.1 Allergy status to other antibiotic agents; Z88.5 Allergy status to narcotic agent; Z88.8 Allergy status to other drugs, medicaments and biological substances; Z95.810 Presence of automatic (implantable) cardiac defibrillator
CPT/HCPCS: 72131; 81003; 81015; 87086; 96372; 99282; A9270-GY; J1885; J2360

== ENCOUNTER 2019-04-07 22:30 | Emergency (ER) | payer OTHER ==
[2019-04-07] MEDS ORDERED: Azithromycin TAB* 250 MG PO ONE (22:51)
[2019-04-07] MEDS ORDERED: cefTRIAXone VIAL(*) 250 MG VIAL IM ONE (22:51)
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
[2019-04-07] MEDS ORDERED: Lidocaine 1% MPF ** 5 ML VIAL IM ONE (23:22)
[2019-04-07 23:59] LABS: ABS Basophils 0.1 10^3/ul (0-0.2); ABS Eosinophils 0.3 10^3/ul (0-0.6); ABS Lymphocytes 3.6 10^3/ul (1.0-4.8); ABS Monocytes 0.6 10^3/ul (0-0.8); ABS Neutrophils 4.6 10^3/ul (1.5-7.7); Hematocrit 37 % (35-47); Hemoglobin 12.4 g/dL (12.0-16.0); Lymphocyte % 39.1 %; Mean Corpuscular HGB Conc 33 g/dL (31-36); Mean Corpuscular Hemoglobin 28 pg (27-31); Mean Corpuscular Volume 85 fL (80-97); Nucleated Red Blood Cells % 0.1; Platelet Count 268 10^3/uL (150-450); Red Blood Count 4.41 10^6 /uL (3.70-4.87); Red Cell Distribution Width 14 % (10-15); White Blood Count 9.2 10^3/uL (3.5-10.8)
[2019-04-07] MEDS ORDERED: Tetan/Diph/Pertus SYR(Tdap)* 0.5 ML SYR(BOOSTRIX) use SYR contains LATEX IM ONE (23:59)
[2019-04-08 00:18] LABS: Albumin 3.9 g/dL (3.2-5.2); Albumin/Globulin Ratio 1.1 (1-3); BUN/Creatinine Ratio 9.3 (8-20); Calcium 9.1 mg/dL (8.6-10.3); EGFR African American 41.7 (>60); EGFR Non-African American 34.5 (>60); Globulin 3.6 g/dL (2-4); Potassium 4.2 mmol/L (3.5-5.0); Total Bilirubin 0.3 mg/dL (0.2-1.0); Total Protein 7.5 g/dL (6.4-8.9)
[2019-04-08 01:04] LABS: HIV 4th Generation Nonreactive (Nonreactive)
[2019-04-08] MEDS ORDERED: Tenofovir/Emtricitab 200/300 * TAB PO ONE (01:07)
[2019-04-08 01:08] LABS: Hepatitis B Surface Antigen Nonreactive (Nonreactive)
[2019-04-08] MEDS ORDERED: oxyCODONE/Acetamin 5/325 MG* TAB PO ONE (01:12)
[2019-04-08 01:19] VITALS: BP 135/86
[2019-04-08 01:25] LABS: Hepatitis C Antibody Negative (Negative)
[2019-04-08] MEDS ORDERED: Raltegravir* 400 MG TAB PO ONE (01:40)
--- OUTSIDE RECORDS SUMMARY | 2019-04-08 01:52 | XMS REPORT | Continuity of Care Document ---
:1970 External Reference #:[id number] Author Name Ravindra Garcia M.D., [facility] Address [address] [place] [address] Care Team Providers Name Role Phone Jenny Dhaliwal MD - Obstetrics & Care Team Information Osha Inspector Gynecology Paige Barnett M.D. - Internal Care Team Information Osha Inspector Medicine Problems Active Problems Provider Date Manic bipolar I disorder Ravindra Garcia M.D., Onset: 03/24/2019 [facility] Essential hypertension Ravindra Garcia M.D., Onset: 03/24/2019 [facility] Hyperlipidemia Ravindra Garcia M.D., Onset: 03/24/2019 [facility] Bradycardia, unspecified Ravindra Garcia M.D., Onset: 03/24/2019 [facility] Preoperative cardiovascular Ravindra Garcia M.D., Onset: 03/24/2019 examination [facility] Cardiac pacemaker in situ Ravindra Garcia M.D., Onset: 03/24/2019 [facility] Social History Type Date Description Comments Sex Unknown Allergies, Adverse Reactions, Alerts Active Allergies Reaction Severity Comments Date Morphine 03/24/2019 Metformin 03/24/2019 Aspirin 03/24/2019 Amoxicillin 03/24/2019 Medications Active Medications SIG Qnty Indications Ordering Provider Date Atorvastatin Calcium 1 by mouth every 3 Unknown 10mg days Tablets Metoprolol Succinate 1 by mouth every Unknown ER day 50mg Tablets ER 24HR Viibryd 1 tablet by mouth Unknown 40mg Tablets everyday Vitamin B-12 ER 1 every day Unknown 2000mcg Tablets ER Vitamin D3 1 cap by mouth Unknown 250mcg (44215 once a day. Ut) Capsules Hydroxyzine Pamoate 1 cap by mouth at Unknown 100mg bedtime Capsules Clonidine HCL take one tablet by Unknown 0.3mg mouth at bedtime Tablets Latuda 1 tabs by mouth Unknown 80mg Tablets every day Hydrocodone-Acetaminop 1 tab 3 times a Unknown hen day as needed 5-325mg Tablets Immunizations Description No Information Available Vital Signs Date Vital Result Comment 03/24/2019 9:53am BP Systolic Sitting Left Arm 106 mmHg BP Diastolic Sitting Left Arm 82 mmHg Heart Rate 88 /min Respiratory Rate 18 /min Weight 231.00 lb O2 % BldC Oximetry 99 % ora Results Description No Information Available Procedures Date Code Description Status 03/24/2019 47609 EKG-Tracing And Report Completed Medical Devices Description No Information Available Encounters Type Date Location Provider Dx Diagnosis Office Visit 03/24/2019 Cardiology Office Ravindra Garcia R00.1 Bradycardia, 10:00a Deborah Chiu, [facility] unspecified Z95.0 Presence of cardiac pacemaker Z01.810 Encounter for preprocedural cardiovascular examination E78.5 Hyperlipidemia, unspecified I10 Essential (primary) hypertension F31.89 Other bipolar disorder Assessments Date Code Description Provider 03/24/2019 R00.1 Bradycardia, unspecified Ravindra Garcia M.D., [facility] 03/24/2019 Z95.0 Presence of cardiac pacemaker Ravindra Garcia M.D., [facility] 03/24/2019 Z01.810 Encounter for preprocedural Ravindra Garcia M.D., cardiovascular examination FAC 03/24/2019 E78.5 Hyperlipidemia, unspecified Ravindra Garcia M.D., [facility] 03/24/2019 I10 Essential (primary) hypertension Ravindra Garcia M.D., [facility] 03/24/2019 F31.89 Other bipolar disorder Davidenko, Ravindra M., M.D., FACC Plan of Treatment Future Appointment(s):10/10/2019 11:20 am - Ravindra Garcia M.D., FACC at Cardiology Fghlqp2003/24/2019 - Ravindra Garcia M.D., FACCR00.1 Bradycardia, unspecifiedNew Orders:Echocardiogram, Ordered: 03/24/19Nuclear Stress Test, Lexiscan, Ordered: 03/24/19Comments:She is not bradycardic today.Z95.0 Presence of cardiac pacemakerNew Orders:Echocardiogram, Ordered: 03/24/19Nuclear Stress Test, Lexiscan, Ordered: 03/24/19Comments:She will start following in our pacer qmcpmnT12.810 Encounter for preprocedural cardiovascular examinationComments: She will need assessment of LVF and ischemia with echocardiogram and lexiscan before clearance.E78.5 Hyperlipidemia, unspecifiedComments:She is on low dose atorvastatin. No [id number] Essential (primary) hypertensionComments:Controlled BP goal is <130/80 mmHg. No changes.F31.89 Other bipolar disorderComments: She seems to be very stable and asymptomatic at this time.AllFollow up:Follow up visit in 6 months. Functional Status Description No Information Available Mental Status Description No Information Available Referrals Description No Information Available
--- OUTSIDE RECORDS SUMMARY | 2019-04-08 01:52 | XMS REPORT | Continuity of Care Document ---
:1970 External Reference #:[id number] Author Name Jez Bright MD Address [facility] [place] [address] Care Team Providers Name Role Phone Viet Parker MD - Surgery Care Team Information Manager Of Production [phone] Problems Active Problems Provider Date Type 1 diabetes mellitus LEONARDA Mac Onset: 08/16/2014 Presbyesophagus Jez Bright MD Onset: 02/08/2019 Gastroesophageal reflux disease LEONARDA Mac Onset: 08/16/2014 Obesity LEONARDA Mac Onset: 08/16/2014 Social History Type Date Description Comments Sex Unknown Tobacco Use Start: Unknown Patient has never smoked Smoking Status Reviewed: 02/08/19 Patient has never smoked Allergies, Adverse Reactions, Alerts Active Allergies Reaction Severity Comments Date Aspirin 08/16/2014 Amoxicillin 01/10/2019 Morphine 08/16/2014 Inactive Allergies Metformin 01/10/2019 Medications Active Medications SIG Qnty Indications Ordering Date Provider Metoprolol Tartrate 1/2 by mouth 30tabs Viet Parker, 09/17/2017 25mg every day MD Tablets Trazodone HCL 1 by mouth daily Unknown 100mg Tablets Hydroxyzine HCL 2 by mouth QHS Unknown 50mg Tablets Clonidine HCL one by mouth bid Unknown 0.1mg Tablets Latuda one by mouth Unknown 80mg Tablets daily Dulera 2 puffs twice Unknown 200-5mcg/Act daily Aerosol Oxycodone-Acetaminophe prn Unknown n 5-325mg/5ML Solution Basaglar Kwikpen inject 50 units Unknown every day 100Unit/ML Solution Pen-Inject Lyrica 1 cap tid Unknown 75mg Capsules Proair HFA prn Unknown 108(90Base) mcg/Act Aerosol Nitroglycerin prn Unknown 0.4mg Tablets Sub Atorvastatin Calcium 1 by mouth 3 Unknown 10mg times weekly Tablets Clonazepam 1 tab bid Unknown 1mg Tablets Admelog if BS is 150-200 Unknown 100Unit/ML give 2 u, if Solution 201-250 give 4 u, if BS is 251- 300 give 6 u, if 300-350 give 8 u, if >350 give 12 u Ozempic 1 injection Unknown 0.25or 0.5 weekly mg/Dose Solution Pen-Inject Symbicort Unknown 160-4.5mcg/Act Aerosol Ipratropium Paige Barnett, [place]/Albuterol MD Sulfate 0.5-2.5(3)mg/3ML Solution Ra Acid Car Top Bolter Paige Barnett, Maximum Strength MD 150mg Tablets Lyrica Lynn, 75mg Capsules MD Rocio Lisinopril Paige Barnett, 2.5mg Tablets Immunizations Description No Information Available Vital Signs Date Vital Result Comment 02/08/2019 2:49pm Height 64 inches 5'4" Weight 235.00 lb BP Systolic 130 mmHg BP Diastolic 81 mmHg Heart Rate 81 /min BMI (Body Mass Index) 40.3 kg/m2 08/16/2014 8:38am Height 64 inches 5'4" Weight 266.00 lb BP Systolic 140 mmHg BP Diastolic 80 mmHg Heart Rate 78 /min BMI (Body Mass Index) 45.7 kg/m2 Results Description No Information Available Procedures Description No Information Available Medical Devices Description No Information Available Encounters Description No Information Available Assessments Date Code Description Provider 02/08/2019 K22.8 Other specified diseases of esophagus Jez Bright MD 02/08/2019 K21.9 Gastro-esophageal reflux disease without Jez Bright MD esophagitis Plan of Treatment 02/08/2019 - Jez Bright MDK22.8 Other specified diseases of esophagusComments:I had a long discussion with the patient regarding her presbyesophagus. As far as the Vincent-en-Y gastric bypass surgery she really should not have any issues from her presbyesophagus. Her acid reflux seems to be under good control with the omeprazole and we discussed dietary modifications as it seemslike there are certain triggers that she can avoid. Oftentimes many esophageal motility disorders improve with the Vincent-en-Y gastric bypass surgery. She denies any odynophagia or dysphagia. At this point I do not see any free occlusions from proceeding forward with surgery. We did discuss that this does not offer him 100% guarantee that something could not occur in the future and she understands thisK21.9 Gastro-esophageal reflux disease without esophagitis Functional Status Description No Information Available Mental Status Description No Information Available Referrals Description No Information Available
== END 2019-04-08 02:33 | disposition home or self-care (01) ==
LOC: ED 22:30
DX: T74.21XA Adult sexual abuse, confirmed, initial encounter (principal)
CPT/HCPCS: 36415; 80053; 85025; 86803; 87340; 87389; 90471; 90715; 96372; 99284; A9270-GY; J0696

== ENCOUNTER 2019-05-03 19:31 | Emergency (ER) | payer OTHER ==
--- OUTSIDE RECORDS SUMMARY | 2019-05-03 19:38 | XMS REPORT ---
:1970 Author Name Cynthia Duarte Address [address] [address] Care Team Providers Name Role Phone Many FarmsCynthia Unavailable Unavailable Orlando Hoang Unavailable Unavailable Allergies, Adverse Reactions, Alerts Allergy Code CodeSystem Reaction Severity Status Substance RxNorm Medications Medication Medication Medication Start Route Dose Status Fill Code CodeSystem Date Instructions RxNorm NoCurrentDosage No NoCurrentFrequency Longer Active clonazepam RxNorm 2019-0 oral 1 mg tablet No for 7 3-19 Longer day(s) Active clonazepam RxNorm 2019-0 oral 1 mg tablet No for 7 4-15 Longer day(s) Active trazodone RxNorm oral 100 mg tablet No for 30 Longer day(s) Active trazodone RxNorm 2019-0 oral 100 mg 1 tablet at Active Take 1 tablet 3-27 bedtime at bedtime for 30 day(s) Admelog RxNorm 2019-0 subQ 100 unit/mL Active for 30 SoloStar 2-15 insulin pen day(s) U-100 Insulin clonidine RxNorm oral 0.1 mg tablet No for 30 HCl Longer day(s) Active hydroxyzine RxNorm 2019-0 oral 50 mg tablet No for 30 HCl 2-19 Longer day(s) Active Latuda RxNorm oral 60 mg tablet No for 30 Longer day(s) Active Lyrica RxNorm oral 75 mg capsule Active for 30 day(s) metoprolol RxNorm oral 25 mg tablet Active for 30 succinate extended release 24 day(s) hr omeprazole RxNorm oral 40 mg Active for 30 capsule,delayed day(s) release(DR/EC) oxycodone-ac RxNorm 2019-0 oral 5-325 mg tablet Active for 30 etaminophen 3-15 day(s) Viibryd RxNorm oral 40 mg tablet No for 30 Longer day(s) Active Latuda RxNorm 2019-0 oral 80 mg 1 tablet Active Take 1 tablet 4-23 every evening every evening after meals for 30 day(s) clonidine RxNorm 2019-0 oral 0.1 mg 1 tablet at Active Take 1 tablet HCl 4-23 bedtime at bedtime for 30 day(s) Viibryd RxNorm 2019-0 oral 40 mg 1 tablet Active Take 1 tablet 4-23 once a day once a day for 30 day(s) clonazepam RxNorm 2019-0 oral 1 mg tablet No for 7 4-22 Longer day(s) Active clonazepam RxNorm oral 1 mg tablet No for 7 Longer day(s) Active hydroxyzine RxNorm 2019-0 oral 50 mg tablet Active for 30 HCl 5-21 day(s) clonazepam RxNorm 2019-0 oral 1 mg tablet Active for 15 5-17 day(s) clonazepam RxNorm 2019-0 oral 1 mg 1 tablet No Take 1 tablet 4-30 twice a day Longer twice a day Active for 15 day(s) Hospital Discharge Medications Medication Direction Start Date Status Indications Fill Instuctions No Discharge Medication Problems Problem Name Code CodeSystem Start Date End Date Status SNOMED-CT 2018-09-03 Active SNOMED-CT 2018-09-25 Active SNOMED-CT 2018-09-25 Active SNOMED-CT 2018-09-25 Active SNOMED-CT 2018-09-25 Active Laboratory Values/Results Test Test Code Code System Actual Result Date LOINC Procedures Procedure Name Code CodeSystem Target Site Date of Procedure SNOMED-CT () 2018-09-30 SNOMED-CT () 2018-10-05 SNOMED-CT () 2018-11-05 SNOMED-CT () 2019-01-27 SNOMED-CT () 2019-01-25 SNOMED-CT () 2019-02-08 SNOMED-CT () 2019-02-24 SNOMED-CT () 2019-03-04 SNOMED-CT () 2019-03-10 Encounter Diagnosis Code CodeSystem Description Date Finding Finding Code Status SNOMED-CT - SNOMED-CT Vital Signs Vitals Date Value Immunizations Vaccine Name Vaccine Code CodeSystem Date Status Social History Element Description Start Date End Date Code CodeSystem Description SNOMED-CT Hospital Discharge Instructions Reason For Referral
[2019-05-03 19:56] VITALS: BP 123/76
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
[2019-05-03 20:51] LABS: Influenza A Molecular NEGATIVE (Negative); Influenza B Molecular NEGATIVE (Negative)
[2019-05-03] MEDS ORDERED: predniSONE TAB* 20 MG PO ONE (21:07)
[2019-05-04 11:40] LABS: ABS Basophils 0.1 10^3/ul (0-0.2); ABS Eosinophils 0.2 10^3/ul (0-0.6); ABS Lymphocytes 2.5 10^3/ul (1.0-4.8); ABS Monocytes 0.5 10^3/ul (0-0.8); ABS Neutrophils 4.1 10^3/ul (1.5-7.7); Eosinophil % 2.5 %; Hematocrit 38 % (35-47); Hemoglobin 12.7 g/dL (12.0-16.0); Lymphocyte % 34.2 %; Mean Corpuscular HGB Conc 33 g/dL (31-36); Mean Corpuscular Hemoglobin 28 pg (27-31); Mean Corpuscular Volume 85 fL (80-97); Mean Platelet Volume 8.4 fL (7.4-10.4); Nucleated Red Blood Cells % 0.1; Platelet Count 269 10^3/uL (150-450); Red Blood Count 4.53 10^6 /uL (3.70-4.87); Red Cell Distribution Width 14 % (10-15); White Blood Count 7.4 10^3/uL (3.5-10.8)
[2019-05-04 11:50] LABS: Albumin 3.8 g/dL (3.2-5.2); Potassium 4.8 mmol/L (3.5-5.0); Total Bilirubin 0.4 mg/dL (0.2-1.0)
[2019-05-04 11:55] LABS: Albumin/Globulin Ratio 1.2 (1-3); BUN/Creatinine Ratio 7.3 (8-20); EGFR African American 45.2 (>60); EGFR Non-African American 37.4 (>60); Globulin 3.2 g/dL (2-4)
[2019-05-04 12:08] LABS: TSH (Thyroid Stimulating Horm) 4.34 mcIU/mL (0.34-5.60)
[2019-05-04 12:30] LABS: HIV 4th Generation Nonreactive (Nonreactive)
== END 2019-05-03 21:12 | disposition home or self-care (01) ==
LOC: UCEAST 19:31
DX: J20.9 Acute bronchitis, unspecified (principal); J44.0 Chronic obstructive pulmonary disease with (acute) lower respiratory infection; H92.09 Otalgia, unspecified ear; R09.81 Nasal congestion; E11.9 Type 2 diabetes mellitus without complications; I10 Essential (primary) hypertension; Z91.09 Other allergy status, other than to drugs and biological substances; Z88.6 Allergy status to analgesic agent; Z88.5 Allergy status to narcotic agent; Z88.0 Allergy status to penicillin; Z79.84 Long term (current) use of oral hypoglycemic drugs
CPT/HCPCS: 36415; 80053; 84443; 85025; 87389; 99212; G0463; J7512

== ENCOUNTER 2019-05-06 12:39 | Emergency (ER) | payer OTHER ==
[2019-05-06 12:51] VITALS: BP 130/79
--- NOTE | 2019-05-06 13:12 | UC ---
Minor Trauma HPI - HPI Summary HPI Summary: 48 year old female with extensive MH history (under care of [facility] [place], + DM II presents after fall yesterday while walking with group. Witnessed fall, patient with shuffling gait and tripped over curb. Sat for a while, then continued to walk to [facility] center, picked out clothing, walked back without problem. This AM noted left hand pain, right knee pain, left hip pain , left toe pain. + ambulatory, however painful. Denies had injury, no headache. While waiting for Xray, patient remembered she forgot to take her insulin this AM- felt lightheaded, fatigued, not as mentally clear. Answering questions appropriately. [employer] from [employer] did not feel secure driving patient to the ER- ambulance was called. - History of Current Complaint Chief Complaint: UCLowerExtremity Stated Complaint: HAND, FOOT, AND KNEE INJURY Time Seen by Provider: 05/06/19 13:05 Hx Obtained From: Patient, Family/Supervisor [employer] Inspection - caregiver from [facility] Hx Last Menstrual Period: hyster ?: No Onset/Duration: Sudden Onset, Lasting Days - 1 Onset Of Pain: Post Accident Severity Initially: Moderate Severity Currently: Moderate Pain Intensity: 8 Pain Scale Used: 0-10 Numeric Mechanism Of Injury: Fall From A Standing Position Aggravating Factor(s): Weight Bearing Alleviating Factor(s): Rest - Allergies/Home Medications Allergies/Adverse Reactions: Allergies Allergy/AdvReac Type Severity Reaction Status Date / Time Adhesive Tape Allergy Severe Rash Verified 05/06/19 12:51 aspirin Allergy Severe Hives/Diff. Verified 05/06/19 12:51 Breathing/I tching morphine Allergy Severe Hives/Diff. Verified 05/06/19 12:51 Breathing/I tching amoxicillin Allergy Intermediate Hives Verified 05/06/19 12:51 PMH/Surg Hx/FS Hx/Imm Hx Previously Healthy: No - DM II, MH disease, CAD Cardiovascular History: Pacemaker/ICD, Myocardial Infarction Psychological History: Depression, Bipolar Disorder Other History Of: Negative For: Anticoagulant Therapy - Surgical History Surgical History: Yes Surgery Procedure, Year, and Place: DISCECTOMY L4-L5 2007. HYSTERECTOMY 2011. RT BREAST LUMP REMOVED- BENIGN 2004. GALLBLADDER 2006. 3 C-SECTIONS 96 , 98, 99; Gastric sleeve, Pacer placed 02/28. GASTRIC SLEEVE SURGERY 2015 - Family History Known Family History: Positive: Cardiac Disease - father at 44, Diabetes, Other - cancer Family History: Heart disease: Father, [place] age 46. Stroke: Grandmother, grandfather. Seizures: Daughter - Social History Occupation: Disabled Lives: Assisted Living - [place] [facility] Alcohol Use: None Substance Use Type: None Substance Use Comment - Amount & Last Used: Xanax - but lost bottle 4 days ago Smoking Status (MU): Never Smoked Tobacco Have You Smoked in the Last Year: No - Pt states she has never smoked before in her life. Household Exposure Type: Cigarettes - Immunization History Most Recent Influenza Vaccination: this season Most Recent Tetanus Shot: ~2012 Most Recent Pneumonia Vaccination: 2 years ago Review of Systems All Other Systems Reviewed And Are Negative: Yes Constitutional: Positive: Negative, Fatigue - while waiting Eyes: Negative: Blurred Vision, Diplopia, Drainage, Photophobia ENT: Negative: Dental Pain, Sore Throat, Ear Ache, Nasal Discharge Respiratory: Negative: Shortness Of Breath, Cough Gastrointestinal: Negative: Abdominal Pain, Vomiting, Diarrhea Musculoskeletal: Positive: Arthralgia, Decreased ROM, Edema, Myalgia Neurological: Negative: Headache, Weakness, Paresthesia Psychological: Positive: Negative Is Patient Immunocompromised?: No Physical Exam Triage Information Reviewed: Yes Appearance: Well-Appearing, No Pain Distress, Well-Nourished, Other: - flat affect. Patient noted to feel fatigued, remained AAOx3, NAD, answering all questions appropriately. BG 394. Vital Signs: Initial Vital Signs Temp 98.5 F 05/06/19 12:47 Pulse 115 05/06/19 12:47 Resp 18 05/06/19 12:47 BP 130/79 05/06/19 12:47 Pulse Ox 95 05/06/19 12:47 Eyes: Positive: Conjunctiva Clear ENT: Positive: Hearing grossly normal Neck: Positive: Supple, Nontender, No Lymphadenopathy Respiratory: Positive: Chest non-tender, Lungs clear, Normal breath sounds, No respiratory distress, No accessory muscle use. Negative: Respiratory distress, Crackles, Rhonchi, Stridor, Wheezing Cardiovascular: Positive: RRR, No Murmur Abdomen Description: Negative: CVA Tenderness (R), CVA Tenderness (L) Neurological: Positive: Alert, Muscle Tone Normal, Other: - decreased muscle tone b/l, poor effort with strength against resistence in all extremities during examation. R knee- no instability, - ACL, PCL, + superificial abrasion over patella, no edema, no ecchymosis, no erythema, no drainage. PROM with distaction 0-120 without pain. neg tangela b/l b/l ankles full PROM, neg drawer, no edema/ ecchymosis. L toes- full PROM without pain with distarction, no edema, no ecchymosis. DF/PF = b/l. SITLT L hip- no TTP over groin, greater troch. mild TTP over L mid buttock, no edema, ecchymosis seen. no spinal tenderness/ SI joint tenderness. pateller reflexes 1+ b/l, diminished b/l. L hand - ttp over 2nd MCP, minimal edema, full PROM of all finger. no wrist pain, no scaphoid tenderness. SITLT NVI Psychological: Positive: Other: - flat affect. Skin: Positive: Other - + superficial abrasion right knee Minor Trauma Course/Dx - Course Course Of Treatment: Multiple minor trauma: While waiting for Xray, patient remembered she forgot to take her insulin this AM- felt lightheaded, fatigued, not as mentally clear. Answering questions appropriately. [employer] from [employer] did not feel secure driving patient to the ER- ambulance was called. Report called to ER, discussed with MARIAM Jordan. - Differential Dx/Diagnosis Provider Diagnosis: Contusion, Hyperglycemia due to type 2 diabetes mellitus Discharge ED - Sign-Out/Discharge Documenting (check all that apply): Patient Departure All imaging exams completed and their final reports reviewed: No Studies - Discharge Plan Condition: Fair Disposition: TRANS HIGHER LVL OF CARE FAC Referrals: Paige Barnett MD [Primary Care Provider] - Additional Instructions: Patient transferred via Ambulance to ED due to hyperglycemia with fatigue/ decreased mental clarity symptoms. ED called, discussed case w MARIAM Jordan. Will need x-ray to injuries if deemed appropriate. - Billing Disposition and Condition Condition: FAIR Disposition: Trans Higher Lvl of Care Fac - Attestation Statements Provider Attestation: reviewed tara
[2019-05-06] MEDS ORDERED: NS 0.9% 1000 ML** 1,000 ML IV ONE (14:05)
== END 2019-05-06 14:24 | disposition short-term general hospital (02) ==
LOC: UCEAST 12:39
DX: S80.01XA Contusion of right knee, initial encounter (principal); M79.642 Pain in left hand; M25.552 Pain in left hip; M79.675 Pain in left toe(s); E11.65 Type 2 diabetes mellitus with hyperglycemia; F31.9 Bipolar disorder, unspecified; I25.10 Atherosclerotic heart disease of native coronary artery without angina pectoris; R53.83 Other fatigue; I25.2 Old myocardial infarction; Z79.4 Long term (current) use of insulin; Z91.09 Other allergy status, other than to drugs and biological substances; Z88.6 Allergy status to analgesic agent; Z88.5 Allergy status to narcotic agent; Z88.0 Allergy status to penicillin; Z95.0 Presence of cardiac pacemaker; W01.0XXA Fall on same level from slipping, tripping and stumbling without subsequent striking against object, initial encounter; Y92.9 Unspecified place or not applicable
CPT/HCPCS: 99213; G0463

== ENCOUNTER 2019-05-06 14:43 | Emergency (ER) | payer OTHER ==
[2019-05-06] MEDS ORDERED: NS 0.9% 1000 ML** 2,000 ML IV ONE (14:54)
--- NOTE | 2019-05-06 14:54 | ED ---
HPI Diabetic - HPI Summary HPI Summary: 48-year-old obese female with a significant past medical history of insulin-dependent type 2 diabetes mellitus, defibrillator placement, psychological history including bipolar disorder presents to the emergency department today complaining of feeling weak and shaky. She was sent from the urgent care with a blood sugar of 346. She says she forgot to take her insulin today and her blood sugars have been running around 186. She endorses increased frequency of urination. She is status post fall 1 day where she endorses pain of her right knee as well as left hand as result of breaking her fall. She denies fever, chest pain, abdominal pain, shortness of breath, labored breathing, pain with urination, rash. - History Of Current Complaint Time Seen by Provider: 05/06/19 14:52 Hx Obtained From: Patient Hx Last Menstrual Period: hyster Onset/Duration: Gradual Onset, Lasting Hours Timing: Constant Severity Initially: Moderate Severity Currently: Moderate Character: Alert Aggravating: Non-compliant - forgot to take insulin Alleviating: Medication - insulin Associated Signs & Symptoms: Polyuria Related History: DM II - Risk Factors Cardiac Risk Factors: Diabetes - Allergies/Home Medications Allergies/Adverse Reactions: Allergies Allergy/AdvReac Type Severity Reaction Status Date / Time Adhesive Tape Allergy Severe Rash Verified 05/06/19 12:51 aspirin Allergy Severe Hives/Diff. Verified 05/06/19 12:51 Breathing/I tching morphine Allergy Severe Hives/Diff. Verified 05/06/19 12:51 Breathing/I tching amoxicillin Allergy Intermediate Hives Verified 05/06/19 12:51 Home Medications: Home Medications Atorvastatin* [Lipitor*] 5 mg PO .THREE TIMES A WEEK 05/06/19 [History Confirmed 05/06/19] Lurasidone(*) [Latuda] 80 mg PO DAILY 05/06/19 [History Confirmed 05/06/19] Metoprolol Succinate XL TAB* [Toprol XL TAB*] 25 mg PO QAM 05/06/19 [History Confirmed 05/06/19] Omeprazole (Nf) [Prilosec (NF)] 40 mg PO DAILY 05/06/19 [History Confirmed 05/06] Pregabalin CAP(*) [Lyrica CAP(*)] 75 mg PO TID 05/06/19 [History Confirmed 05/06] Ranitidine TAB (NF) [Zantac TAB (NF)] 150 mg PO BID 05/06/19 [History Confirmed 05/06/19] Ranitidine TAB (NF) [Zantac TAB (NF)] 150 mg PO BID 05/06/19 [History Confirmed 05/06/19] Semaglutide [Ozempic] 0.25 mg SUBCUT WEEKLY 05/06/19 [History Confirmed 05/06/19 ] Urea [Ureacin-20] 20 % TOPICAL DAILY 05/06/19 [History Confirmed 05/06/19] Vilazodone (NF) [Viibryd (NF)] 40 mg PO QAM 05/06/19 [History Confirmed 05/06/19 ] cloNIDine TAB* [Catapres 0.1 MG TAB*] 0.3 mg PO BEDTIME 05/06/19 [History Confirmed 05/06/19] clonazePAM TAB(*) [KlonoPIN TAB(*)] 0.5 mg PO .MIDDAY PRN 05/06/19 [History Confirmed 05/06/19] clonazePAM TAB(*) [KlonoPIN TAB(*)] 1 mg PO BID PRN 05/06/19 [History Confirmed 05/06/19] oxyCODONE/Acetamin 5/325 MG* [Percocet 5/325 TAB*] 1 tab PO TID PRN 05/06/19 [ History Confirmed 05/06/19] PMH/Surg Hx/FS Hx/Imm Hx Endocrine/Hematology History: Reports: Hx Diabetes - type 2 dm, Hx Thyroid Disease, Hx Anemia Denies: Hx Anticoagulant Therapy Cardiovascular History: Reports: Hx Angina, Hx Hypercholesterolemia, Hx Hypertension, Hx Pacemaker/ICD - 2016, Hx Valvular Heart Disease - MVP, Other Cardiovascular Problems/Disorders - MITRAL VALVE PROLAPSE Denies: Hx Congestive Heart Failure, Hx Myocardial Infarction Respiratory History: Reports: Hx Asthma, Hx Chronic Bronchitis, Hx Chronic Obstructive Pulmonary Disease (COPD), Hx Pneumonia, Hx Sleep Apnea GI History: Reports: Hx Diverticulosis, Hx Gastroesophageal Reflux Disease - NO MEDICATION FOR- NO PROBLEMS SINCE GASTRIC SURGERY, Other GI Disorders - GASTRIC SLEEVE 1+ YEAR AGO History: Reports: Other Problems/Disorders - 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 Musculoskeletal History: Reports: Hx Arthritis - MANY JOINTS - back, hips primarily, Hx Back Problems - DDD, Hx Tendonitis Denies: Hx Rheumatoid Arthritis, Hx Osteoporosis Sensory History: Reports: Hx Contacts or Glasses - GLASSES Opthamlomology History: Reports: Hx Contacts or Glasses - GLASSES Neurological History: Reports: Hx Headaches, Hx Migraine, Other Neuro Impairments/Disorders - siatic nerve pain Psychiatric History: Reports: Hx Panic Disorder - ANXIETY, Hx Post Traumatic Stress Disorder, Hx Inpatient Treatment, Hx Community Mental Health Tx, Hx Bipolar Disorder, Hx Suicide Attempt, Other Psychiatric Issues/Disorders - reports: "personality d/o" Denies: Hx Eating Disorder - 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 HYSTERECTOMY 2011. RT BREAST LUMP REMOVED- BENIGN 2004. GALLBLADDER 2005. 3 C-SECTIONS 96 , 98, 99; Gastric sleeve, Pacer placed 02/28. GASTRIC SLEEVE SURGERY 2014 Hx Anesthesia Reactions: No Infectious Disease History: Denies: Hx Clostridium Difficile, Hx of Known/Suspected MRSA, Hx Shingles, Hx Tuberculosis, Hx Known/Suspected VRE, Hx Known/Suspected VRSA, History Other Infectious Disease - Family History Known Family History: Positive: Cardiac Disease - father at 44, Diabetes, Other - cancer Family History: Heart disease: Father, [place] age 46. Stroke: Grandmother, grandfather. Seizures: Daughter - Social History Alcohol Use: None Hx Substance Use: No Substance Use Type: Reports: None Substance Use Comment - Amount & Last Used: Xanax - but lost bottle 4 days ago Hx Tobacco Use: No Smoking Status (MU): Never Smoked Tobacco Have You Smoked in the Last Year: No - Pt states she has never smoked before in her life. Review of Systems Positive: Fatigue Eyes: Negative Negative: Blurred Vision Cardiovascular: Negative Respiratory: Negative Negative: Shortness Of Breath Gastrointestinal: Negative Negative: Abdominal Pain Positive: frequency Musculoskeletal: Negative Skin: Negative Neurological: Negative Psychological: Normal All Other Systems Reviewed And Are Negative: Yes Physical Exam Triage Information Reviewed: Yes Vital Signs Reviewed: Yes Appearance: Positive: Well-Appearing, No Pain Distress, Well-Nourished, Obese, Signs of Trauma - bandaid on left hand and right knee Skin: Positive: Warm, Skin Color Reflects Adequate Perfusion Head/Face: Positive: Normal Head/Face Inspection Eyes: Positive: EOMI, HORACIO ENT: Positive: Hearing grossly normal Neck: Positive: Nontender Respiratory/Lung Sounds: Positive: Clear to Auscultation, Breath Sounds Present Cardiovascular: Positive: RRR, S1, S2 Abdomen Description: Positive: Soft. Negative: Distended, Guarding Musculoskeletal: Positive: Strength/ROM Intact, Other - Mild erythema, edema and abrasion noted to the left MTP of the second and third digit on the dorsal aspect Neurological: Positive: Sensory/Motor Intact, Alert, Oriented to Person Place, Time, Speech Normal Psychiatric: Positive: Other - Patient has a very flat affect but makes appropriate eye contact and conversation. AVPU Assessment: Alert Diagnostics - Laboratory Result Diagrams: 05/06/19 15:18 05/06/19 15:18 Lab Statement: Any lab studies that have been ordered have been reviewed, and results considered in the medical decision making process. Diabetic Course/Dx - Course Course Of Treatment: Patient was evaluated for hyperglycemia in the emergency department. The patient was seen and examined. Patient's vital signs are stable and she is afebrile. Laboratory and imaging studies were obtained. Due to the patient complaining of significant pain to her left hand and x-ray was obtained which showed no acute fracture. An IV was established and she was given 2 L of normal saline. Her labs came back showing hypomagnesemia at 1.2, potassium 3.5, corrected sodium is 136. There is no evidence of leukocytosis or infection. She was given 20 of each use of potassium as well as 2 g of magnesium for electrolyte replenishment. She is given 6 units of insulin for her hyperglycemia. - Diagnoses Differential Dx: Acute [place], Diabetic Ketoacidosis, Hyperglycemia, Hyperosmolar State Provider Diagnoses: Hyperglycemia due to type 2 diabetes mellitus Discharge ED - Sign-Out/Discharge Documenting (check all that apply): Sign-Out Patient Signing out patient TO: Faisal Covarrubias Receiving patient FROM: Julian Lange - Discharge Plan Referrals: Paige Barnett MD [Primary Care Provider] -
[2019-05-06 15:23] LABS: ABS Basophils 0.1 10^3/ul (0-0.2); ABS Eosinophils 0.1 10^3/ul (0-0.6); ABS Lymphocytes 2.5 10^3/ul (1.0-4.8); ABS Monocytes 0.7 10^3/ul (0-0.8); Hematocrit 38 % (35-47); Hemoglobin 12.5 g/dL (12.0-16.0); Lymphocyte % 26.9 %; Mean Corpuscular HGB Conc 33 g/dL (31-36); Mean Corpuscular Hemoglobin 28 pg (27-31); Mean Corpuscular Volume 85 fL (80-97); Mean Platelet Volume 7.4 fL (7.4-10.4); Platelet Count 251 10^3/uL (150-450); Red Cell Distribution Width 13 % (10-15); White Blood Count 9.4 10^3/uL (3.5-10.8)
[2019-05-06 15:49] LABS: Albumin 3.7 g/dL (3.2-5.2); BUN/Creatinine Ratio 7.3 (8-20); Calcium 8.5 mg/dL (8.6-10.3); EGFR African American 34.2 (>60); EGFR Non-African American 28.3 (>60); Globulin 3.6 g/dL (2-4); Magnesium 1.2 mg/dL (1.9-2.7); Potassium 3.5 mmol/L (3.5-5.0); Total Bilirubin 0.5 mg/dL (0.2-1.0); Total Protein 7.3 g/dL (6.4-8.9)
[2019-05-06] MEDS ORDERED: Magnesium Sulfate 2 GM IV* 2 GM/50 ML BAG IVPB ONE (16:20)
[2019-05-06] MEDS ORDERED: Insulin REGULAR(*) 1 UNITS UNIT SUBCUT ONE ×2 (16:40→19:46)
[2019-05-06] MEDS ORDERED: NS 0.9% w/ 20 Meq KCL 1000 ML* 1,000 ML IV SCH (17:00)
[2019-05-06 17:09] LABS: Urine Appearance Cloudy; Urine Bilirubin Negative (Negative); Urine Blood Negative (Negative); Urine Color Yellow; Urine Glucose 3+(>=500 mg/dL) (Negative); Urine Ketones Trace (Negative); Urine Nitrite Negative (Negative); Urine Protein Negative (Negative); Urine Specific Gravity 1.013 (1.010-1.030); Urine Urobilinogen Negative (Negative)
[2019-05-06] MEDS ORDERED: Insulin REGULAR(*) 1 UNITS UNIT IV PUSH ONE (17:26)
[2019-05-06] MEDS ORDERED: Insulin GLARGINE(*) 1 UNITS UNIT SUBCUT ONE (22:46)
--- NOTE | 2019-05-06 23:25 | PN ---
Progress Note - Progress Note Date of Service: 05/06/19 Note: Patient signed out to me by Julian BECERRA pending correction of elevated glucose level. Presents with right knee and left wrist pain status post fall yesterday, and elevated glucose level of 387. Patient states he forgot to take her insulin this morning due to pain from fall. Patient complains of feeling weak and shaky through the day. Hyperglycemia, fall left wrist right knee negative x-ray. X-rays of right knee and left wrist negative for fracture. Glucose level progressively decreased with 2 L normal saline, 6 units insulin IV , 8 units insulin subcutaneous and patient's 45 unit Lantus subcutaneous. Patient discharged in stable condition diagnosis of hyperglycemia and fall.
[2019-05-06 23:29] VITALS: BP 149/80
== END 2019-05-06 23:39 | disposition home or self-care (01) ==
LOC: ED 14:43
DX: E11.65 Type 2 diabetes mellitus with hyperglycemia (principal); E07.9 Disorder of thyroid, unspecified; D64.9 Anemia, unspecified; E78.00 Pure hypercholesterolemia, unspecified; I10 Essential (primary) hypertension; I34.1 Nonrheumatic mitral (valve) prolapse; J44.9 Chronic obstructive pulmonary disease, unspecified; K21.9 Gastro-esophageal reflux disease without esophagitis; F41.9 Anxiety disorder, unspecified; F43.10 Post-traumatic stress disorder, unspecified; Z90.710 Acquired absence of both cervix and uterus; Z98.84 Bariatric surgery status; Z95.0 Presence of cardiac pacemaker; Z79.899 Other long term (current) drug therapy; Z88.1 Allergy status to other antibiotic agents; Z88.5 Allergy status to narcotic agent; Z88.8 Allergy status to other drugs, medicaments and biological substances
CPT/HCPCS: 36415; 80053; 81003; 83735; 84484; 85025; 96360; 96361; 99284; J3475

== ENCOUNTER 2019-09-30 16:44 | Emergency (ER) | payer OTHER ==
--- NOTE | 2019-09-30 17:46 | ED ---
HPI Chest Pain - HPI Summary HPI Summary: The patient is a 49-year-old female presenting to [facility] Emergency Department for evaluation of constant non-radiating chest pressure for the last week. She reports she has been experiencing this chest pain without any associated symptoms of nausea, vomiting, shortness of breath, palpitations, or dizziness. This morning, however, she developed numbness and weakness in the right upper extremity. Her pain is rated 8/10 in severity now. The pain is non-exertional. Past medical history includes diabetes, thyroid disease, anemia, angina, dyslipidemia, hypertension, pacemaker, mitral valve prolapse, asthma, COPD, chronic bronchitis, pneumonia, sleep apnea, diverticulitis, GERD, gastric sleeve , arthritis, back problems, headache/migraine, panic disorder, PTSD, bipolar disorder, hysterectomy, cholecystectomy, 3x C-sections, right breast lumpectomy. Family history of cardiac disease, stroke. Nonsmoker, no alcohol use , no substance use. Medications reviewed. Allergies noted. - History of Current Complaint Time Seen by Provider: 09/30/19 17:05 Hx Obtained From: Patient Hx Last Menstrual Period: hyster Onset/Duration: Started Days Ago, Still Present Timing: Constant Initial Severity: Severe Current Severity: Severe Pain Intensity: 8 Pain Scale Used: 0-10 Numeric Chest Pain Location: Diffuse Chest Pain Radiates: No Character: Pressure/Squeezing Aggravating Factor(s): Nothing Alleviating Factor(s): Nothing Associated Signs and Symptoms: Positive: Chest Pain, Numbness - RUE, Weakness - RUE. Negative: Dizziness, Shortness of Breath, Nausea, Palpitations, Vomiting - Additional Pertinent History Primary Care Physician: [id number] - Allergy/Home Medications Allergies/Adverse Reactions: Allergies Allergy/AdvReac Type Severity Reaction Status Date / Time Adhesive Tape Allergy Severe Rash Verified 09/30/19 17:54 aspirin Allergy Severe Hives/Diff. Verified 09/30/19 17:54 Breathing/I tching morphine Allergy Severe Hives/Diff. Verified 09/30/19 17:54 Breathing/I tching amoxicillin Allergy Intermediate Hives Verified 09/30/19 17:54 metformin Allergy Mild Diarrhea Verified 09/30/19 17:54 Home Medications: Home Medications Insulin Glargine,Hum.rec.anlog [Basaglar Kwikpen 100 inuts/ml 3 ml x 5 Pens] 30 units SUBCUT DAILY 02/13/17 [History Confirmed 04/17/20] hydrOXYzine HCL TAB* [Atarax TAB 50 MG *] 50 mg PO BEDTIME PRN 04/17/17 [ History Confirmed 09/30/19] traZODone TAB* [Desyrel TAB*] 100 mg PO BEDTIME 04/17/17 [History Confirmed ] Metoprolol Succinate XL TAB* [Toprol XL TAB*] 25 mg PO QAM 05/06/19 [History Confirmed 09/30/19] Omeprazole (Nf) [Prilosec (NF)] 40 mg PO DAILY 05/06/19 [History Confirmed 09/29] Semaglutide [Ozempic] 0.5 mg SUBCUT WEEKLY 05/06/19 [History Confirmed 09/30/19] Vilazodone (NF) [Viibryd (NF)] 40 mg PO QAM 05/06/19 [History Confirmed 09/30/19 ] cloNIDine TAB* [Catapres 0.1 MG TAB*] 0.3 mg PO BEDTIME 05/06/19 [History Confirmed 09/30/19] clonazePAM TAB(*) [KlonoPIN TAB(*)] 0.5 mg PO .MIDDAY PRN 05/06/19 [History Confirmed 09/30/19] clonazePAM TAB(*) [KlonoPIN TAB(*)] 1 mg PO BID PRN 05/06/19 [History Confirmed 09/30/19] Atorvastatin* [Lipitor*] 5 mg PO .THREE TIMES A WEEK 09/30/19 [History Confirmed 09/30/19] Lurasidone(*) [Latuda] 20 mg PO DAILY 09/30/19 [History Confirmed 09/30/19] Pregabalin 75 mg PO QAM 09/30/19 [History Confirmed 09/30/19] Pregabalin 150 mg PO QPM 09/30/19 [History Confirmed 09/30/19] PMH/Surg Hx/FS Hx/Imm Hx Endocrine/Hematology History: Reports: Hx Diabetes - type 2 dm, Hx Thyroid Disease, Hx Anemia Denies: Hx Anticoagulant Therapy Cardiovascular History: Reports: Hx Angina, Hx Hypercholesterolemia, Hx Hypertension, Hx Pacemaker/ICD - 2016, Hx Valvular Heart Disease - MVP, Other Cardiovascular Problems/Disorders - MITRAL VALVE PROLAPSE Denies: Hx Congestive Heart Failure, Hx Myocardial Infarction Respiratory History: Reports: Hx Asthma, Hx Chronic Bronchitis, Hx Chronic Obstructive Pulmonary Disease (COPD), Hx Pneumonia, Hx Sleep Apnea GI History: Reports: Hx Diverticulosis, Hx Gastroesophageal Reflux Disease - NO MEDICATION FOR- NO PROBLEMS SINCE GASTRIC SURGERY, Other GI Disorders - GASTRIC SLEEVE 1+ YEAR AGO History: Reports: Other Problems/Disorders - 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 Musculoskeletal History: Reports: Hx Arthritis - MANY JOINTS - back, hips primarily, Hx Back Problems - DDD, Hx Tendonitis Denies: Hx Rheumatoid Arthritis, Hx Osteoporosis Sensory History: Reports: Hx Contacts or Glasses - GLASSES Opthamlomology History: Reports: Hx Contacts or Glasses - GLASSES Neurological History: Reports: Hx Headaches, Hx Migraine, Other Neuro Impairments/Disorders - siatic nerve pain Psychiatric History: Reports: Hx Panic Disorder - ANXIETY, Hx Post Traumatic Stress Disorder, Hx Inpatient Treatment, Hx Community Mental Health Tx, Hx Bipolar Disorder, Hx Suicide Attempt, Other Psychiatric Issues/Disorders - reports: "personality d/o" Denies: Hx Eating Disorder - Pt states [employer] "Diagnosed me with an eating D/O because I was afraid to eat.", Hx of Violent Episodes Against Others - Cancer History Cancer Type, Location and Year: hysterectomy was due to precancerous cells Hx Chemotherapy: No Hx Radiation Therapy: No - Surgical History Surgical History: Yes Surgery Procedure, Year, and Place: DISCECTOMY L4-L5 2007. HYSTERECTOMY 2011. RT BREAST LUMP REMOVED- BENIGN 2004. GALLBLADDER 2006. 3 C-SECTIONS 96 , 98, 99; Gastric sleeve, Pacer placed 02/28. GASTRIC SLEEVE SURGERY 2014 Hx Anesthesia Reactions: No Infectious Disease History: Denies: Hx Clostridium Difficile, Hx of Known/Suspected MRSA, Hx Shingles, Hx Tuberculosis, Hx Known/Suspected VRE, Hx Known/Suspected VRSA, History Other Infectious Disease - Family History Known Family History: Positive: Cardiac Disease - father at 44, Diabetes, Other - cancer Family History: Heart disease: Father, [place] age 46. Stroke: Grandmother, grandfather. Seizures: Daughter - Social History Alcohol Use: None Hx Substance Use: No Substance Use Type: Reports: None Substance Use Comment - Amount & Last Used: Xanax - but lost bottle 4 days ago Hx Tobacco Use: No Smoking Status (MU): Never Smoked Tobacco Have You Smoked in the Last Year: No - Pt states she has never smoked before in her life. Review of Systems Positive: Chest Pain - pressure. Negative: Palpitations Negative: Shortness Of Breath Negative: Vomiting, Nausea Neurological/Mental Status: Other - Negative: dizziness Positive: Weakness - RUE, Numbness - RUE All Other Systems Reviewed And Are Negative: Yes Physical Exam - Summary Physical Exam Summary: VITAL SIGNS: Reviewed. GENERAL: Patient is a well-developed and nourished female who is lying comfortable in the stretcher. Patient is not in any acute respiratory distress. HEAD AND FACE: No signs of trauma. No ecchymosis, hematomas or skull depressions. No sinus tenderness. EYES: PERRLA, EOMI x 2, No injected conjunctiva, no nystagmus. No photophobia. EARS: Hearing grossly intact. Ear canals and tympanic membranes are within normal limits. MOUTH: Oropharynx within normal limits. NECK: Supple, trachea is midline, no adenopathy, no JVD, no carotid bruit, no c- spine tenderness, neck with full ROM. No meningeal signs, no Kernig's or brudzinskis signs. CHEST: Symmetric, no tenderness at palpation. LUNGS: Clear to auscultation bilaterally. No wheezing or crackles. CVS: Regular rate and rhythm, S1 and S2 present, no murmurs or gallops appreciated. ABDOMEN: Soft, non-tender. No signs of distention. No rebound, no guarding, and no masses palpated. Bowel sounds are normal. EXTREMITIES: FROM in all major joints, no edema, no cyanosis or clubbing. NEURO: Alert and oriented x 3. No acute neurological deficits. Speech is normal and follows commands. SKIN: Dry and warm. GCS: 15 Triage Information Reviewed: Yes Vital Signs Reviewed: Yes - Franki Coma Scale Best Eye Response: 4 - Spontaneous Best Motor Response: 6 - Obeys Commands Best Verbal Response: 5 - Oriented Coma Scale Total: 15 Procedures - Sedation Patient Received Moderate/Deep Sedation with Procedure: No Diagnostics - Laboratory Result Diagrams: 09/30/19 18:33 Lab Statement: Any lab studies that have been ordered have been reviewed, and results considered in the medical decision making process. - Radiology Chest X-Ray Radiology Interpretation Completed By: ED Physician Summary of Radiographic Findings: Pacemaker. No acute process. Dr. Deleon has reviewed and interpreted this image. Pending official report. - CT Brain CT CT Interpretation Completed By: Radiologist Summary of CT Findings: Impression: No acute intracranial abnormality. Dr. Deleon has reviewed this report. - EKG 1804 Cardiac Rate: NL - 69 BPM EKG Rhythm: Sinus Rhythm Summary of EKG Findings: EKG at 1804 reveals normal sinus rhythm at 69 BPM. Normal axis. No ST elevations. Dr. Deleon has reviewed and interpreted this EKG. Chest Pain Course/Dx - Course Assessment/Plan: The patient is a 49-year-old female presenting to [facility] Emergency Department for evaluation of constant non-radiating chest pressure for the last week. She reports she has been experiencing this chest pain without any associated symptoms of nausea, vomiting, shortness of breath, palpitations, or dizziness. This morning, however, she developed numbness and weakness in the right upper extremity. Her pain is rated 8/10 in severity now. The pain is non-exertional. Past medical history includes diabetes, thyroid disease, anemia, angina, dyslipidemia, hypertension, pacemaker, mitral valve prolapse, asthma, COPD, chronic bronchitis, pneumonia, sleep apnea, diverticulitis, GERD, gastric sleeve, arthritis, back problems, headache/ migraine, panic disorder, PTSD, bipolar disorder, hysterectomy, cholecystectomy , 3x C-sections, right breast lumpectomy. Family history of cardiac disease, stroke. Nonsmoker, no alcohol use, no substance use. Medications reviewed. Allergies noted. In the ED course the patient was placed on a gambling monitor, IV access was obtained, IV fluids started. Patient has allergy to ASA. Past medical records reviewed. CBC with normal limits. EKG: NSR no ST elevation. CXR shows no acute process. Head CT is negative. Patient is awaiting blood work. Patient is stable and will be signed out to Dr. Rojas at shift change. - Diagnoses Provider Diagnoses: Chest pain - Critical Care Time Critical Care Statement: Critical care time is provided exclusive of any time spent performing procedures. Discharge ED - Sign-Out/Discharge Documenting (check all that apply): Sign-Out Patient Signing out patient TO: Jass Rojas - Patient is a sign-out to Dr. Jass Rojas MD, at 1900 on 09/30/2019, pending labs and disposition. - Discharge Plan Condition: Stable Referrals: Paige Barnett MD [Primary Care Provider] - - Attestation Statements Document Initiated by Scribe: Yes Documenting Scribe: Cortney Almendarez Provider For Whom Scribe is Documenting (Include Credential): Keyon Deleon MD Scribe Attestation: ICortney, scribed for Keyon Deleon MD on 09/30/19 at 1910. Status of Scribe Document: Ready
--- OUTSIDE RECORDS SUMMARY | 2019-09-30 18:02 | XMS REPORT ---
:1970 Author Organization [facility] Care Team Providers Name Role Phone Rasheeda Dick Primary Care Physician Unavailable Allergies, Adverse Reactions, Alerts Allergy Code CodeSystem Reaction Severity Criticality Status Start Substance Date Moderate Medications Medication Medication Medication Start Stop Route Dose Status Fill Code CodeSystem Date Date Instructions oxycodone-maria luisa 9903884 RxNorm 2019-0 oral 5-325 mg active for 30 taminophen 3-15 tablet day(s) clonazepam 19740723 RxNorm 2019-0 2019- oral 1 mg 1 completed Take 1 tablet 430 05-15 tablet twice a day twice a for 15 day(s) day trazodone 534423 RxNorm 2019-0 oral 100 mg 1 active Take 1 tablet 3-27 tablet at at bedtime bedtime for 30 day(s) clonidine HCl 651044 RxNorm 2019-0 oral 0.3 mg 1 active Take 1 tablet 9-20 tablet at at bedtime bedtime for 30 day(s) Viibryd 0020494 RxNorm 2019-0 2019- oral 40 mg 1 completed Take 1 tablet 23 07-22 tablet once a day once a for 30 day(s) day Viibryd 2079597 RxNorm 2019- oral 40 mg completed for 30 04-23 tablet day(s) clonazepam 19740723 RxNorm 2019-0 oral 1 mg active for 14 6-04 tablet day(s) clonazepam 19740723 RxNorm 2019- oral 1 mg completed for 7 04-30 tablet day(s) clonidine HCl 518396 RxNorm 2019- oral 0.1 mg completed for 30 04-23 tablet day(s) Latuda 8711100 RxNorm 2019-0 oral 80 mg 1 active Take 1 tablet 4-23 tablet every every evening after evening meals for 30 day(s) clonazepam 19740723 RxNorm 2019-0 2019- oral 1 mg completed for 15 5-17 06-01 tablet day(s) omeprazole 556891 RxNorm oral 40 mg active for 30 capsule,d day(s) elayed release(D R/EC) Viibryd 2592874 RxNorm 2019- oral 40 mg 1 completed Take 1 tablet 01-17 tablet once a day once a for 30 day(s) day trazodone 616344 RxNorm 2019- oral 100 mg completed for 30 09-08 tablet day(s) Lyrica 724163 RxNorm oral 75 mg active for 30 capsule day(s) clonazepam 19740723 RxNorm 2019- oral 1 mg completed for 7 08-31-15 tablet day(s) metoprolol 008221 RxNorm oral 25 mg active for 30 succinate tablet day(s) extended release 24 hr clonazepam 19740723 RxNorm 2019- oral 1 mg completed for 7 09-27- tablet day(s) hydroxyzine 305710 RxNorm 2019- oral 50 mg completed for 30 HCl 08-03 05- tablet day(s) clonidine HCl 993820 RxNorm 2019- oral 0.1 mg 1 completed Take 1 tablet 10-05 tablet at at bedtime bedtime for 30 day(s) Admelog 7554033 RxNorm subQ 100 active for 30 SoloStar 2-15 unit/mL day(s) U-100 Insulin insulin pen hydroxyzine 145333 RxNorm 0 oral 50 mg active for 30 HCl 5-21 tablet day(s) clonidine HCl 461302 RxNorm 2019- oral 0.2 mg completed for 30 01-25-20 tablet day(s) clonazepam 19740723 RxNorm 2019- oral 1 mg completed for 7 10-04-29 tablet day(s) Latuda 0018139 RxNorm 2019- oral 60 mg completed for 30 10-05 tablet day(s) Problems Problem Name Code CodeSystem Alternate Alternate Start End Status Narrative Code CodeSystem Date Date Bipolar [id number] SNOMED-CT Active affective 3-22 disorder, unspecified Bipolar [id number] SNOMED-CT Active affective 3-22 disorder, unspecified Bipolar [id number] SNOMED-CT 0 Active affective 3-22 disorder, unspecified Unspecified [id number] SNOMED-CT 2018- Active anxiety 4-13 disorder Unspecified [id number] SNOMED-CT Active anxiety 4-13 disorder Relevant diagnostic tests/laboratory data Narrative No Information Procedures Procedure Code CodeSystem Target Date of Status Service Device Device Device Name Site Procedure Delivery Code Name UID Location Psychotherap [id number] SNOMED-CT () 2019-03-10 complete Mental y, 45 04 d Health- minutes with [place] patient [address], [id number] Psychotherap [id number] SNOMED-CT () 2019-03-23 complete Mental y, 45 04 d Health- minutes with [place] patient [address], [id number] [id number] Psychotherap [id number] SNOMED-CT () 2019-04-06 complete Mental y, 45 04 d Health- minutes with [place] patient [address], [id number] [phone] Psychotherap [id number] SNOMED-CT () 2019-04-08 complete Mental y, 45 04 d Health- minutes with [place] patient [address], [id number] [id number] Psychotherap [id number] SNOMED-CT () 2019-04-20 complete Mental y, 45 04 d Health- minutes with [place] patient [address], [id number] [phone] Psychotherap [id number] SNOMED-CT () 2019-02-08 complete Mental y, 45 04 d Health- minutes with [place] patient [address], [id number] [id number] Psychotherap [id number] SNOMED-CT () 2019-02-24 complete Mental y, 45 04 d Health- minutes with [place] patient [address], [id number] [phone] Office [place] [id number] SNOMED-CT () 2019-03-04 complete Mental other 7 d Health- outpatient [place] visit for [address], of an [place], established [id number] patient, [id number] which requires at least 2 of these 3 rangel components: An expanded problem focused history; An expanded problem focused examination; Medical decision making of low Office or [id number] SNOMED-CT () 2019-04-21 complete Mental other 7 d Health- outpatient [place] visit for [address], established [id number] patient, [id number] which requires at least 2 of these 3 rangel components: An expanded problem focused history; An expanded problem focused examination; Medical decision making of low Office or [id number] SNOMED-CT () 2019-01-25 complete Mental other 7 d Health- outpatient [place] visit for [address], established [id number] patient, [id number] which requires at least 2 of these 3 rangel components: An expanded problem focused history; An expanded problem focused examination; Medical decision making of low Office or [id number] SNOMED-CT () 2018-10-05 complete Mental other 7 d Health- outpatient [place] visit for [address], established [id number] patient, [id number] which requires at least 2 of these 3 rangel components: An expanded problem focused history; An expanded problem focused examination; Medical decision making of low Office or [id number] SNOMED-CT () 2018-11-05 complete Mental other 7 d Health- outpatient [place] visit for [address], established [id number] patient, [id number] which requires at least 2 of these 3 rangel components: An expanded problem focused history; An expanded problem focused examination; Medical decision making of low Office or [id number] SNOMED-CT () 2019-05-20 complete Mental other 6 d Health- outpatient [place] visit for [address], established [id number] patient, [id number] which requires at least 2 of these 3 rangel components: A problem focused history; A problem focused examination; Straightforw khurram medical decision making. Justin SNOMED-CT () 2019-05-14 complete Mental d Health- [place], [id number] [phone] SNOMED-CT () 2019-05-14 complete Mental d Health- [address], [id number] [id number] SNOMED-CT () 2019-05-14 complete Mental d Health- [address], [id number] [phone] SNOMED-CT () 2018-09-30 complete Mental d Health[address], [id number] [phone] SNOMED-CT () 2019-01-27 complete Mental d Health- [address], [id number] [phone] Encounters/Encounter Diagnoses Encounter Encounter Diagnosis Diagnosis Diagnosis Date of Service Name Code Code Name CodeSystem Diagnosis Delivery Location PROS PROS [id number] Bipolar SNOMED-CT 2019-05-26 Behavioral cumulative affective Health disorder, Clinic , , unspecified , Vital Signs No Information Social History Element Description Description Start End Code CodeSystem AdditionalInfo Date Date SexAssignedAtBirth Female 1969-06 F AdministrativeGender 08-12 Hospital Discharge Instructions Reason For Referral Medical Equipment FDA Assessments
--- OUTSIDE RECORDS SUMMARY | 2019-09-30 18:02 | XMS REPORT | Continuity of Care Document ---
:1970 External Reference #:[id number] Author Name Jennifer Rosenthal MD (transmitted by agent of provider Sabine Martell) Address [address] [facility] [address] [place] [address] Care Team Providers Name Role Phone Paige Barnett MD - Internal Care Team Information Bedspread Cutter Medicine Viet Parker MD - Surgery Care Team Information Bedspread Cutter [phone] Samantha Hess M.D. - Surgery of Care Team Information Bedspread Cutter the Hand Problems Active Problems Provider Date Obstructive sleep apnea syndrome Maria Ines Nogueira MD Onset: 05/26/2014 Allergic rhinitis Maria Ines Nogueira MD Onset: 05/26/2014 Acid reflux Paige Barnett M.D. Onset: 06/26/2014 Degeneration of lumbar intervertebral disc Paige Barnett M.D. Onset: 2014 Note: mild L4/L5 ( MRI in 2012) Depressive disorder Onset: Note: mood d/o unspecified Chronic anxiety Onset: Diabetic dyslipidemia associated Paige Barnett M.D. Onset: 10/30/2014 with type 2 diabetes mellitus Hypersomnia Isis Walker DNP, RN, CALL CIRCUIT WORKER- Onset: 11/13/2015 Low back pain Brendan Mcdonald M.D. Onset: 12/24/2015 Obesity Maria Ines Nogueira MD Onset: 01/14/2016 Type 2 diabetes mellitus Paige Barnett M.D. Onset: 01/28/2016 Moderate persistent asthma Paige Barnett M.D. Onset: 06/19/2014 Cardiac pacemaker in situ Paige Barnett M.D. Onset: 04/02/2016 Note: dual chamber Borderline personality disorder Paige Barnett M.D. Onset: 06/17/2016 Note: traits to be accurate per [facility] discharge 05/30 Lumbar radiculopathy Onset: Note: with h/o discectomy [facility] Bicipital tenosynovitis Macario Helton MD Onset: 04/21/2017 Adhesive capsulitis of shoulder Macario Helton MD Onset: 04/21/2017 Sprain of knee and leg Chino Torres MD Onset: 12/29/2017 Knee joint effusion Chino Torres MD Onset: 12/29/2017 Closed fracture of distal end of radius Lion Garcia MD Onset: 03/03/2018 Social History Type Date Description Comments Sex Unknown ETOH Use Never used alcohol Tobacco Use Start: Unknown Patient has never smoked Recreational Drug Use Denies Drug Use Smoking Status Reviewed: 08/03/19 Patient has never smoked Exercise Type/Frequency Exercises regularly 5000 steps a day. Allergies, Adverse Reactions, Alerts Active Allergies Reaction Severity Comments Date Morphine and Related shortness of breath 08/31/2012 /heart racing /hives in 1998 Aspirin hives, difficulty 08/31/2012 breathing Tape allergic constact 02/07/2015 dermatitis Amoxicillin Nausea and Vomiting Severe 01/08/2016 Acetaminophen stomach ache in higher doses 05/09/2016 Inactive Allergies Metformin diarrhea, rash, nausea at higher doses 05/31/2012 Medications Active Medications SIG Qnty Indications Ordering Date Provider Basaglprimitivo Kwikpen Inject 40 Units 45ml Paige Barnett, 02/03/2019 Under The Skin M.DVandana 100Unit/ML Solution Daily Pen-Inject Ozempic Inject 0.25 mg 3ml E11.649 Rikki Kemp MD 10/14/2018 0.25or 0.5 once weekly for mg/Dose Solution 4 weeks. Then Pen-Inject inject 0.5 mg once weekly. True Metrix Blood use to test 100units Rikki Kemp MD 10/11/2018 Glucosetest Strips blood sugars fasting and 2 Strips hours after meals Unifine Pentips use daily with 100units Paige Barnett, 09/25/2018 31G X 8 insulin pens M.D. mm Misc BD Uf Short Pen use as directed 100units Blanca 09/24/2018 Needle [id number] with insulin Deborah Duke pens Trueplus Lancets 30G use to test with 100units Arabella Davenport MD 09/20/2018 Ultra Thin true metrix 30G Misc machine True Metrix Blood Use To Test 300units Blanca 09/20/2018 Glucosetest Strips Blood Glucose Deborah Duke Levels 3 Times Strips Daily Hydroxyzine HCL 2 @ at bedtime Unknown 11/23/[address] Hoang Tablets Clonazepam bid Orlando Hoang, 11/23/2017 1mg Tablets Atorvastatin Calcium take 1/2 tab 3 90tabs E78.4 Paige Barnett, 2017 times a week M.D. 10mg Tablets Nystatin apply to 90gm Paige Barnett, 11/04/2017 [id number]/GM affected areas M.D. Powder twice a day as needed for rash x 10 days True Metrix Meter use daily 1units Paige Barnett, 08/25/2017 M.D. Device Metoprolol Succinate Take One Tablet 90tabs I49.5 Paige Barnett, 2017 ER By Mouth Every M.D. 25mg Tablets ER 24HR Day Omeprazole Take One Capsule 60caps K21.9 Paige Barnett, 02/18/2017 40mg By Mouth Every M.D. Capsules DR Day Nitroglycerin 1 tab by mouth 30tabs R07.9 Zsofijanes Ortega, 10/24/2016 0.4mg sl as needed x 3 CALL CIRCUIT WORKER Tablets Sub every 5 minutes. if pain continues after 3 doses call 911 Ventolin HFA Inhale Two Puffs 18units Paige Barnett, 07/09/2015 By Mouth Every 4 M.D. 108(90Base) mcg/Act To 6 Hours as Aerosol Needed Oxygen please use o2 at 1units Maria Ines Nogueira, 08/28/2014 Misc 2l/min with Cpap machine BD Insulin Syringe to be used with 100units E11.9 Arabella Davenport MD 2013 Ultrafine humalog as II/Short/1ML/31G X needed for 10/28" sliding scale 31G X 10/28" 1 ML Misc Clonidine HCL 1 po at bedtime Unknown 0.1mg Tablets Latuda 2 tablet by Unknown 40mg Tablets mouth once a day Trazodone HCL Take One Tablet Unknown 100mg By Mouth AT Tablets Bedtime Lyrica 1 by mouth three Unknown 75mg Capsules times a day Magnesium Oxide take 2 tablet by 180tabs Paige Barnett, mouth three M.D. 400(241.3Mg) mg times a day Tablets Oxycodone-Acetaminoph Take One Tablet Unknown en By Mouth Twice A 5-325mg Tablets Day as Needed Maximum Daily Dose 2 Viibryd 1 by mouth every Unknown 40mg Tablets day Trueplus Lancets 33G Unknown Micro Thin 33G Misc Clonazepam take 1/2 to 1 Unknown 0.5mg tablet as needed Tablets anxiety and sleep Methocarbamol tid Unknown 500mg Tablets Medications Administered in Office Medication SIG Qnty Indications Ordering Provider Date Triamcinolone (Kenalog) Macario Helton MD 07/21/2017 Injection Triamcinolone (Kenalog) Macario Helton MD 02/06/2017 Injection Triamcinolone (Kenalog) Priscilla Mcneil PA-C 11/06/2016 Injection Depomedrol 80MG Gregorio Edmond M.D. 10/02/2011 Injection Immunizations CPT Code Status Date Vaccine Lot # [id number] Given 04/26/2019 Influenza Virus Vaccine, Quadrivalent [id number]), [id number] Derived From Cell 60934 Given 05/10/2018 Influenza Virus Vaccine, Quadrivalent, Split, [id number] Preservative Free 98808 Given 02/18/2017 Influenza Virus Vaccine, Quadrivalent, Split, [id number] Preservative Free 21646 Given 04/02/2016 Influ Virus Vaccine, Quadrivalent, Split Virus, [place] [id number] [address] Given 03/21/2015 Influenza Virus Vaccine, Quadrivalent, Split, [id number] Preservative Free 66159 Given 09/14/2014 Pneumococcal Conjugate Vaccine 13 Valent For [id number] Intramuscular Use 55638 Given 03/23/2014 Influenza Virus Vaccine, Quadrivalent, Split, [id number] Preservative Free 30718 Given 07/13/2013 Hepatitis B Vaccine Adult Dosage [id number] 66664 Given 03/31/2013 Flu Vaccine Split Virus Preservative Free For [id number] Indiv [id number] Older 39082 Given 09/30/2012 Hepatitis B Vaccine Adult Dosage [id number] 58124 Given 08/31/2012 Hepatitis B Vaccine Adult Dosage [id number] 28293 Given 08/09/2012 Pneumonia Vaccine [id number] 33111 Given 08/09/2012 Tdap - Tetanus/Diptheria/Acellular Pertussis [id number] Vital Signs Date Vital Result Comment 08/03/2019 1:00pm Height 65 inches 5'5" Weight 225.00 lb Heart Rate 92 /min BP Systolic Sitting 110 mmHg BP Diastolic Sitting 80 mmHg O2 % BldC Oximetry 98 % BMI (Body Mass Index) 37.4 kg/m2 01/11/2019 11:50am Height 65 inches 5'5" Weight 228.00 lb Heart Rate 76 /min BP Systolic Sitting 113 mmHg BP Diastolic Sitting 78 mmHg O2 % BldC Oximetry 97 % BMI (Body Mass Index) 37.9 kg/m2 Results Test Acquired Facility Test Result H/L Range Note Date Laboratory 08/03/2019 [facility] [employer] [facility] Hemoglobin A1c 8.9 High 5-7 test finding Drug Screen 07/25/2019 [facility] Urine None None Urine Pain [address] Hydrocod[place] [address] Screen [phone] Urine Oxycodone Screen None Detected None Detect Urine Fentanyl Screen None Detected None Detect Urine Methadone Screen None Detected None Detect Urine Buprenorphine Screen None Detected None Detect Urine Amphetamine Screen None Detected None Detect Urine Barbiturates Screen None Detected None Detect Urine Benzodiazepine Screen None Detected None Detect Urine Cannabinoids Screen None Detected None Detect Urine Cocaine Screen None Detected None Detect Urine Opiates Screen None Detected None Detect Urine Phencyclidine Screen None Detected None Detect 1 Drug Screen 06/26/2019 [facility] Urine None Detected None Detect Urine Pain [address] [place] [address] Screen [phone] Urine Oxycodone Screen None Detected None Detect Urine Fentanyl Screen None Detected None Detect Urine Methadone Screen None Detected None Detect Urine Buprenorphine Screen None Detected None Detect Urine Amphetamine Screen None Detected None Detect Urine Barbiturates Screen None Detected None Detect Urine Benzodiazepine Screen None Detected None Detect Urine Cannabinoids Screen None Detected None Detect Urine Cocaine Screen None Detected None Detect Urine Opiates Screen None Detected None Detect Urine Phencyclidine Screen None Detected None Detect 2 Oxycodone,Urine 06/26/2019 [facility] Oxycodone Negative Cutoff: 25 Quantitation [address] [facility] Conf, Urine ng/[place] [address] [phone] Noroxycodone Conf, Urine Negative ng/mL Cutoff: 25 Oxymorphone, Urine Negative ng/mL Cutoff: 25 Noroxymorphone, Urine Negative ng/mL Cutoff: 25 Oxycodone Interpretation, U Negative. 3 Laboratory test 05/06/2019 [facility] Point of Care 394 mg/dL High 70-100 4 finding [address] [facility] [place] [address] [phone] Urinalysis 05/06/2019 [facility] Urine Color Yellow Profile [address] [place] [address] [phone] Urine Appearance Cloudy Urine Specific [place] 1.013 Normal 1.010-1.030 Urine pH 5.0 Normal 5-9 Urine Urobilinogen Negative Negative Urine Ketones Trace Abnormal Negative Urine Protein Negative Negative Urine Leukocytes Negative Negative Urine Blood Negative Negative Urine Nitrite Negative Negative Urine Bilirubin Negative Negative Urine Glucose 3+(>=500 mg/dL) Abnormal Negative Laboratory test 05/06/2019 [facility] Magnesium 1.2 mg/dL Low 1.9-2.7 finding [address] [place] [address] [phone] Comp Metabolic 05/06/2019 [facility] Sodium 131 mmol/L Low 135 -[address] [place] [address] [phone] Potassium 3.5 mmol/L Normal 3.5-5.0 Chloride 94 mmol/L Low 101-111 Co2 Carbon Dioxide 26 mmol/L Normal 22-32 Anion Gap 11 mmol/L Normal 2-11 Glucose 382 mg/dL High 70-100 Blood Urea Nitrogen 14 mg/dL Normal 6-24 Creatinine 1.91 mg/dL High 0.51-0.95 BUN/Creatinine Ratio 7.3 Low 8-20 Calcium 8.5 mg/dL Low 8.6-10.3 Total Protein 7.3 g/dL Normal 6.4-8.9 Albumin 3.7 g/dL Normal 3.2-5.2 Globulin 3.6 g/dL Normal 2-4 Albumin/Globulin Ratio 1.0 Normal 1-3 Total Bilirubin 0.50 mg/dL Normal 0.2-1.0 Alkaline Phosphatase 49 U/L Normal 34-104 Alt 11 U/L Normal 7-52 Ast 20 U/L Normal 13-39 Egfr Non- 28.3 >60 Egfr 34.2 >60 5 Laboratory test 05/06/2019 [facility] Troponin-I 0.00 <0.03 [address] (TnI) ng/[place] [address] [phone] CBC Auto Diff 05/06/2019 [facility] White Blood 9.4 Normal 3.5 -10.[address] Count 10^3/[place] [address] [phone] Red Blood Count 4.50 10^6/uL Normal 3.70-4.87 Hemoglobin 12.5 g/dL Normal 12.0-16.0 Hematocrit 38 % Normal 35-47 Mean Corpuscular Volume 85 fL Normal 80-97 Mean Corpuscular Hemoglobin 28 pg Normal 27-31 Mean Corpuscular HGB Conc 33 g/dL Normal 31-36 Red Cell Distribution Width 13 % Normal 10-15 Platelet Count 251 10^3/uL Normal 150-450 Mean Platelet Volume 7.4 fL Normal 7.4-10.4 Abs Neutrophils 6.0 10^3/uL Normal 1.5-7.7 Abs Lymphocytes 2.5 10^3/uL Normal 1.0-4.8 Abs Monocytes 0.7 10^3/uL Normal 0-0.8 Abs Eosinophils 0.1 10^3/uL Normal 0-0.6 Abs Basophils 0.1 10^3/uL Normal 0-0.2 Abs Nucleated RBC 0.0 10^3/uL Granulocyte % 63.8 % Lymphocyte % 26.9 % Monocyte % 7.3 % Eosinophil % 1.0 % Basophil % 1.0 % Nucleated Red Blood Cells % 0.0 Laboratory test 05/06/2019 [facility] Point of 375 mg/dL High 70-100 [address] [place] [address] [phone] Laboratory test 05/06/2019 [facility] Point of 349 mg/dL High 70-100 [address] [place] [address] [phone] Laboratory test 05/06/2019 [facility] Point of 321 mg/dL High 70-100 [address] [place] [address] [phone] CBC Auto Diff 05/03/2019 [facility] White Blood 7.4 Normal 3.5 -10.[address] Count 10^3/[place] [address] [phone] Red Blood Count 4.53 10^6/uL Normal 3.70-4.87 Hemoglobin 12.7 g/dL Normal 12.0-16.0 Hematocrit 38 % Normal 35-47 Mean Corpuscular Volume 85 fL Normal 80-97 Mean Corpuscular Hemoglobin 28 pg Normal 27-31 Mean Corpuscular HGB Conc 33 g/dL Normal 31-36 Red Cell Distribution Width 14 % Normal 10-15 Platelet Count 269 10^3/uL Normal 150-450 Mean Platelet Volume 8.4 fL Normal 7.4-10.4 Abs Neutrophils 4.1 10^3/uL Normal 1.5-7.7 Abs Lymphocytes 2.5 10^3/uL Normal 1.0-4.8 Abs Monocytes 0.5 10^3/uL Normal 0-0.8 Abs Eosinophils 0.2 10^3/uL Normal 0-0.6 Abs Basophils 0.1 10^3/uL Normal 0-0.2 Abs Nucleated RBC 0.0 10^3/uL Granulocyte % 56.0 % Lymphocyte % 34.2 % Monocyte % 6.1 % Eosinophil % 2.5 % Basophil % 1.2 % Nucleated Red Blood Cells % 0.1 Comp Metabolic Panel 05/03/2019 [facility] Sodium 132 mmol/L Low 135-[address] [place] [address] [phone] Potassium 4.8 mmol/L Normal 3.5-5.0 Chloride 97 mmol/L Low 101-111 Co2 Carbon Dioxide 27 mmol/L Normal 22-32 Anion Gap 8 mmol/L Normal 2-11 Calcium 9.0 mg/dL Normal 8.6-10.3 Albumin 3.8 g/dL Normal 3.2-5.2 Total Bilirubin 0.40 mg/dL Normal 0.2-1.0 Glucose 411 mg/dL High 70-100 Blood Urea Nitrogen 11 mg/dL Normal 6-24 Creatinine 1.50 mg/dL High 0.51-0.95 BUN/Creatinine Ratio 7.3 Low 8-20 Total Protein 7.0 g/dL Normal 6.4-8.9 Globulin 3.2 g/dL Normal 2-4 Albumin/Globulin Ratio 1.2 Normal 1-3 Alkaline Phosphatase 50 U/L Normal 34-104 Alt 11 U/L Normal 7-52 Ast 15 U/L Normal 13-39 Egfr Non- 37.4 >60 Egfr 45.2 >60 10 Laboratory 05/03/2019 [facility] TSH (Thyroid 4.34 Normal 0.34 -5.60 test finding [address] Stim Horm) mcIU/[place] [address] [phone] Rapid 05/03/2019 [facility] Influenza A NEGATIVE Negative 11 Influenza A & [address] [place] [place] [address] [phone] Influenza B Molecular NEGATIVE Negative CBC Auto 04/07/2019 [facility] White Blood 9.2 10^3/uL Normal 3.5-10.[address] [place] [address] [phone] Red Blood Count 4.41 10^6/uL Normal 3.70-4.87 Hemoglobin 12.4 g/dL Normal 12.0-16.0 Hematocrit 37 % Normal 35-47 Mean Corpuscular Volume 85 fL Normal 80-97 Mean Corpuscular Hemoglobin 28 pg Normal 27-31 Mean Corpuscular HGB Conc 33 g/dL Normal 31-36 Red Cell Distribution Width 14 % Normal 10-15 Platelet Count 268 10^3/uL Normal 150-450 Mean Platelet Volume 7.0 fL Low 7.4-10.4 Abs Neutrophils 4.6 10^3/uL Normal 1.5-7.7 Abs Lymphocytes 3.6 10^3/uL Normal 1.0-4.8 Abs Monocytes 0.6 10^3/uL Normal 0-0.8 Abs Eosinophils 0.3 10^3/uL Normal 0-0.6 Abs Basophils 0.1 10^3/uL Normal 0-0.2 Abs Nucleated RBC 0.0 10^3/uL Granulocyte % 50.5 % Lymphocyte % 39.1 % Monocyte % 6.3 % Eosinophil % 3.0 % Basophil % 1.1 % Nucleated Red Blood Cells % 0.1 Comp Metabolic 04/07/2019 [facility] Sodium 138 mmol/L Normal 135-145 Panel [address] [place] [address] [phone] Potassium 4.2 mmol/L Normal 3.5-5.0 Chloride 101 mmol/L Normal 101-111 Co2 Carbon Dioxide 32 mmol/L Normal 22-32 Anion Gap 5 mmol/L Normal 2-11 Glucose 164 mg/dL High 70-100 Blood Urea Nitrogen 15 mg/dL Normal 6-24 Creatinine 1.61 mg/dL High 0.51-0.95 BUN/Creatinine Ratio 9.3 Normal 8-20 Calcium 9.1 mg/dL Normal 8.6-10.3 Total Protein 7.5 g/dL Normal 6.4-8.9 Albumin 3.9 g/dL Normal 3.2-5.2 Globulin 3.6 g/dL Normal 2-4 Albumin/Globulin Ratio 1.1 Normal 1-3 Total Bilirubin 0.30 mg/dL Normal 0.2-1.0 Alkaline Phosphatase 42 U/L Normal 34-104 Alt 12 U/L Normal 7-52 Ast 16 U/L Normal 13-39 Egfr Non- 34.5 >60 Egfr 41.7 >60 12 Laboratory 04/07/2019 [facility] Hepatitis B Nonreactive Nonreactive test finding [address] [facility] [place] [address] [phone] Hepatitis C 04/07/2019 [facility] HCV Index 0.01 s/c Antibody [address] [place] [address] [phone] Hepatitis C Antibody Negative Negative 1 The specimen was tested at the listed cutoffs: Drug Class Test level (ng/mL) Hydrocodone 300 Oxycodone 100 Fentanyl 1 Methadone 150 Buprenorphine 5 Amphetamines 500 Barbiturates 200 Benzodiazepines 200 Cocaine 150 Cannabinoids 50 Opiates 300 PCP 25 Specimen was received without chain of custody. Results should be used for medical purposes only. 2 The specimen was tested at the listed cutoffs: Drug Class Test level (ng/mL) Hydrocodone 300 Oxycodone 100 Fentanyl 1 Methadone 150 Buprenorphine 5 Amphetamines 500 Barbiturates 200 Benzodiazepines 200 Cocaine 150 Cannabinoids 50 Opiates 300 PCP 25 Specimen was received without chain of custody. Results should be used for medical purposes only. 3 ADDITIONAL INFORMATION This report is intended for use in clinical monitoring and management of patients. It is not intended for use in employment-related testing. This test was developed and its performance characteristics determined by [facility] in a manner consistent with CLIA requirements. This test has not been cleared or approved by the U.S. Food and Drug Administration. Test Performed by: [facility] [address] [place] [address] Sensory Scientist: Doug Rosales M.D. Ph.D.; CLIA# [id number] 4 Soda Dry House Operator: [id number] 5 Because ethnic data is not always readily available, this report includes an eGFR for both -Americans and non- Americans. The National Kidney Disease Education Program (NKDEP) does not endorse the use of the MDRD equation for patients that are not between the ages of 18 and 70, are , have extremes of body size, muscle mass, or nutritional status, or are non- or non-. According to the National Kidney Foundation, irrespective of diagnosis, the stage of the disease is based on the level of kidney function: Stage Description GFR(mL/min/1.73 m(2)) 1 Kidney damage with normal or decreased GFR 90 2 Kidney damage with mild decrease in GFR 60-89 3 Moderate decrease in GFR 30-59 4 Severe decrease in GFR 15-29 5 Kidney failure <15 (or dialysis) 6 Troponin-I testing on Plasma Separator Tubes (PST) has a known false positive rate of 0.20-0.40%. All positive troponins reflex immediately to secondary confirmatory testing. Using the [employer] DxI 800 Access Immunoassay systems, the 99th percentile upper reference limit was demonstrated to be < 0.03 ng/mL. 7 Soda Dry House Operator: [id number] Soda Dry House Operator: [id number] Soda Dry House Operator: [id number] 10 Because ethnic data is not always readily available, this report includes an eGFR for both -Americans and non- Americans. The National Kidney Disease Education Program (NKDEP) does not endorse the use of the MDRD equation for patients that are not between the ages of 18 and 70, are , have extremes of body size, muscle mass, or nutritional status, or are non- or non-. According to the National Kidney Foundation, irrespective of diagnosis, the stage of the disease is based on the level of kidney function: Stage Description GFR(mL/min/1.73 m(2)) 1 Kidney damage with normal or decreased GFR 90 2 Kidney damage with mild decrease in GFR 60-89 3 Moderate decrease in GFR 30-59 4 Severe decrease in GFR 15-29 5 Kidney failure <15 (or dialysis) 11 Soda Dry House Operator: [id number] 12 Because ethnic data is not always readily available, this report includes an eGFR for both -Americans and non- Americans. The National Kidney Disease Education Program (NKDEP) does not endorse the use of the MDRD equation for patients that are not between the ages of 18 and 70, are , have extremes of body size, muscle mass, or nutritional status, or are non- or non-. According to the National Kidney Foundation, irrespective of diagnosis, the stage of the disease is based on the level of kidney function: Stage Description GFR(mL/min/1.73 m(2)) 1 Kidney damage with normal or decreased GFR 90 2 Kidney damage with mild decrease in GFR 60-89 3 Moderate decrease in GFR 30-59 4 Severe decrease in GFR 15-29 5 Kidney failure <15 (or dialysis) Procedures Date Code Description Status 08/04/2013 388521607 Diabetic Retinal Eye Exam Completed 2012 [id number] Diabetic Retinal Eye Exam Completed 06/07/2012 [id number] Mammogram Completed Medical Devices Description No Information Available Encounters Description No Information Available Assessments Date Code Description Provider 08/03/2019 E11.9 Type 2 diabetes mellitus without complications Jennifer Rosenthal MD 08/03/2019 E78.5 Hyperlipidemia, unspecified Jennifer Rosenthal MD 08/03/2019 K21.9 Gastro-esophageal reflux disease without Jennifer Rosenthal MD esophagitis 08/03/2019 F32.89 Other specified depressive episodes Jennifer Rosenthal MD 08/03/2019 E66.9 Obesity, unspecified Jennifer Rosenthal MD 08/03/2019 Z11.3 Encounter for screening for infections with a Jennifer Rosenthal MD predominantly sexual mode of transmission 08/03/2019 G89.4 Chronic pain syndrome Jennifer Rosenthal MD 08/03/2019 R05 Cough Jennifer Rosenthal MD 04/26/2019 Z23 Encounter for immunization Nurse Visit A Plan of Treatment Future Appointment(s):11/01/2019 10:30 am - Pa[facility] Barn[facility] M.D[facility] Jennifer Rosenthal MDE11.9 Type 2 diabetes mellitus without complicationsComments:Please continue to log FSFollow up:3 qxdyqjV22.5 Hyperlipidemia, zdvihgnqgsuM04.9 Gastro-esophageal reflux disease without ghbnakezruvY31.89 Other specified depressive jzguyrosY04.9 Obesity, haynkqjxothR52.3 Encounter for screening for infections with a predominantly sexual mode of nxmensmbjxtkV10.4 Chronic pain syndromeReferral:Matthew Ha DO , Interventional Pain [id number] CoughComments:Likely that this is due to a viral illness.No need for antibiotics at this time.Continue to stay well hydrated with plenty of fluids.Eat as tolerated.Motrin/Tylenol for fever control.Call office for continued fever or worsening symptoms Functional Status Description No Information Available Mental Status Description No Information Available Referrals Refer to Dr Reason for Referral Status Appt Date Matthew Ha DO Created [address] [place] [address] [phone]
--- OUTSIDE RECORDS SUMMARY | 2019-09-30 18:02 | XMS REPORT ---
:1970 Author Organization [facility] Care Team Providers Name Role Phone Trish Graham Primary Care Physician Unavailable Allergies, Adverse Reactions, Alerts Allergy Code CodeSystem Reaction Severity Criticality Status Start Substance Date Moderate Medications Medication Medication Medication Start Stop Route Dose Status Fill Code CodeSystem Date Date Instructions trazodone 342637 RxNorm 2019- oral 100 mg completed for 30 03-27 tablet day(s) clonidine HCl 424039 RxNorm 2019- oral 0.1 mg 1 completed Take 1 tablet 10-05 08-13 tablet at at bedtime bedtime for 30 day(s) clonazepam 19740723 RxNorm 2018-06- oral 1 mg completed for 21 08-07 02-04 tablet day(s) clonazepam 19740722 RxNorm 2018-06 2019- oral 0.5 mg completed for 14 1- 12-06 tablet day(s) clonazepam 19740723 RxNorm 2020- oral 1 mg completed for 30 2- 03-05 tablet day(s) Admelog 3441682 RxNorm subQ 100 active for 30 SoloStar 2-15 unit/mL day(s) U-100 Insulin insulin pen clonidine HCl 945878 RxNorm oral 0.3 mg 1 active Take 1 tablet 9-20 tablet at at bedtime bedtime for 30 day(s) clonazepam 19740722 RxNorm 2018-06 2019- oral 0.5 mg completed for 14 1- 12-06 tablet day(s) trazodone 156694 RxNorm oral 100 mg 1 active Take 1 tablet 3-27 tablet at at bedtime bedtime for 30 day(s) Viibryd 3113109 RxNorm 2019- oral 40 mg 1 completed Take 1 tablet 8- 11-03 tablet once a day once a for 30 day(s) day clonazepam 19740723 RxNorm 2019- oral 1 mg completed for 7 3-19 04-15 tablet day(s) clonazepam 19740722 RxNorm 0 2020- oral 0.5 mg completed for 30 07-01 02-18 tablet day(s) Latuda 2418428 RxNorm 2019-0 oral 80 mg 1 active Take 1 tablet 4-23 tablet every every evening after evening meals for 30 day(s) oxycodone-maria luisa 1357642 RxNorm 2019-0 oral 5-325 mg active for 30 taminophen 3-15 tablet day(s) clonidine HCl 656023 RxNorm 2019- oral 0.1 mg completed for 30 - tablet day(s) hydroxyzine 419452 RxNorm 2018-0 oral 50 mg active for 30 HCl 5- tablet day(s) clonazepam 19740723 RxNorm 2018-06 2019- oral 1 mg completed for 14 - 12-06 tablet day(s) Latuda 8517222 RxNorm 2019- oral 60 mg completed for 30 10-05 tablet day(s) clonazepam 19740723 RxNorm 2018-06 2019- oral 1 mg completed for 14 -11 24- tablet day(s) clonazepam 19740723 RxNorm 2019- oral 1 mg completed for 7 -27 09-22 tablet day(s) clonazepam 19740723 RxNorm 2019- oral 1 mg completed for 15 10-29- tablet day(s) Viibryd 0631208 RxNorm 2019- oral 40 mg 1 completed Take 1 tablet 10-05- tablet once a day once a for 30 day(s) day Viibryd 0553398 RxNorm 2019- oral 40 mg completed for 30 10-05 tablet day(s) Lyrica 101121 RxNorm oral 75 mg active for 30 capsule day(s) clonidine HCl 735595 RxNorm 2019- oral 0.2 mg completed for 30 8- 09-20 tablet day(s) clonazepam 19740722 RxNorm 2020-0 oral 0.5 mg active for 30 2-18 tablet day(s) hydroxyzine 296675 RxNorm 2019- oral 50 mg completed for 30 HCl -31 10-21 tablet day(s) clonazepam 127266 RxNorm 2020-0 oral 1 mg active for 30 3-05 tablet day(s) Lindseybryd 8040866 RxNorm 2018-06 oral 40 mg 1 active Take 1 tablet 1-06 tablet once a day once a for 30 day(s) day clonazepam 19740723 RxNorm 2019- oral 1 mg 1 completed Take 1 tablet 30 05-15 tablet twice a day twice a for 15 day(s) day metoprolol 074646 RxNorm oral 25 mg active for 30 succinate tablet day(s) extended release 24 hr clonazepam 19740723 RxNorm 2019- oral 1 mg completed for 7 04-30 tablet day(s) clonazepam 19740723 RxNorm 2020- oral 1 mg completed for 30 1-17 02-04 tablet day(s) clonazepam 19740722 RxNorm 2018-06 2020- oral 0.5 mg completed for 21 2-23 02-04 tablet day(s) clonazepam 19740723 RxNorm 2019- oral 1 mg completed for 7 4-22 04-29 tablet day(s) clonazepam 19740722 RxNorm 2018-06 2019- oral 0.5 mg completed for 14 2-06 12-23 tablet day(s) omeprazole 20020724 RxNorm oral 40 mg active for 30 capsule,d day(s) elayed release(D R/EC) clonazepam 19740723 RxNorm 2019- oral 1 mg completed for 14 6-04 12-06 tablet day(s) Problems Problem Name Code CodeSystem Alternate Alternate Start End Status Narrative Code CodeSystem Date Date Bipolar [id number] SNOMED-CT Active affective 3-22 disorder, unspecified Bipolar 41215871 SNOMED-CT Active affective 3-22 disorder, unspecified Bipolar 29142479 SNOMED-CT Active affective 3-22 disorder, unspecified Unspecified 69863446 SNOMED-CT Active anxiety 4-13 disorder Unspecified 47471578 SNOMED-CT Active anxiety 4-13 disorder Relevant diagnostic tests/laboratory data Narrative No Information Procedures Procedure Code CodeSystem Target Date of Status Service Device Device Device Name Site Procedure Delivery Code Name UID Location SNOMED-CT () 2018-09-[address] [facility]- [address], [id number] Office or [id number] SNOMED-CT () 2018-10-05 complete Mental other [facility]- outpatient [place] visit for [address], established [id number] patient, [id number] which requires at least 2 of these 3 rangel components: An expanded problem focused history; An expanded problem focused examination; Medical decision making of low Office or 009122 SNOMED-CT () 2018-11-05 complete Mental other [facility] d [facility]- outpatient [place] visit for [address], established [id number] patient, [id number] which requires at least 2 of these 3 rangel components: An expanded problem focused history; An expanded problem focused examination; Medical decision making of low SNOMED-CT () 2019-01-27 complete Mental d Health- [place] [address], [id number] Office [place] 761645 SNOMED-CT () 2019-01-25 complete Mental other 7 d [facility]- outpatient [place] visit for [address], established [id number] patient, [phone] which requires at least 2 of these 3 rangel components: An expanded problem focused history; An expanded problem focused examination; Medical decision making of low Psychotherap 216935 SNOMED-CT () 2019-02-08 complete Mental y, 45 04 d Health- minutes with [place] patient [address], [id number] [id number] Psychotherap 138634 SNOMED-CT () 2019-02-24 complete Mental y, 45 04 d Health- minutes with [place] patient [address], [id number] Office or 429936 SNOMED-CT () 2019-03-04 complete Mental other 7 d [facility]- outpatient [place] visit for [address], established [id number] patient, [id number] which requires at least 2 of these 3 rangel components: An expanded problem focused history; An expanded problem focused examination; Medical decision making of low Psychotherap 953794 SNOMED-CT () 2019-03-10 complete Mental y, 45 04 d Health- minutes with [place] patient [address], [id number] [id number] Psychotherap 321200 SNOMED-CT () 2019-03-23 complete Mental y, 45 04 d Health- minutes with [place] patient [address], [id number] [id number] Psychotherap 860191 SNOMED-CT () 2019-04-06 complete Mental y, 45 04 d Health- minutes with [place] patient [address], [id number] Psychotherap [id number] SNOMED-CT () 2019-04-08 complete Mental y, 45 04 d Health- minutes with [place] patient [address], [id number] [id number] Office or [id number] SNOMED-CT () 2019-04-21 complete Mental other 7 d [facility]- outpatient [place] visit for [address], [facility] [id number] patient, [phone] which requires at least 2 of these 3 rangel components: An expanded problem focused history; An expanded problem focused examination; Medical decision making of low Psychotherap 471150 SNOMED-CT () 2019-04-20 complete Mental y, 45 04 d Health- minutes with [place] patient [address], [id number] [id number] SNOMED-CT () 2019-05-14 complete Mental d Health- [address], [id number] [id number] SNOMED-CT () 2019-05-14 complete Mental d Health- [place], [id number] SNOMED-CT () 2019-05-14 complete Mental d Health- [address], [id number] [phone] Office or 858764 SNOMED-CT () 2019-05-20 complete Mental other 6 d Health- outpatient [place] visit for [address] [id number] patient, [id number] which requires at least 2 of these 3 rangel components: A problem focused history; A problem focused examination; [employer]ight[employer] khurram medical decision making. Counselin SNOMED-CT () 2019-06-14 complete Mental d Health- [address], [id number] [id number] SNOMED-CT () 2019-06-14 complete Mental d Health- [address], [id number] SNOMED-CT () 2019-06-14 complete Mental d Health- [address], [id number] SNOMED-CT () 2019-06-14 complete Mental d Health- [address], [id number] [phone] SNOMED-CT () 2019-06-14 complete Mental d Health- [address], [id number] [phone] Psychotherap [id number] SNOMED-CT () 2019-08-17 complete Mental y, 45 04 d Health- minutes with [address], [id number] [phone] Encounters/Encounter Diagnoses Encounter Encounter Diagnosis Diagnosis Diagnosis Date of Service Name Code Code Name CodeSystem Diagnosis Delivery Location PROS PROS [id number] Bipolar SNOMED-CT 2019-08-25 Behavioral cumulative affective Health disorder, Clinic , , unspecified , Vital Signs No Information Social History Element Description Description Start End Code CodeSystem AdditionalInfo Date Date SexAssignedAtBirth Female 1969-06 F AdministrativeGender 08-12 Hospital Discharge Instructions Reason For Referral Medical Equipment FDA Assessments
[2019-09-30 18:44] LABS: ABS Basophils 0.1 10^3/ul (0-0.2); ABS Eosinophils 0.2 10^3/ul (0-0.6); ABS Lymphocytes 3.5 10^3/ul (1.0-4.8); ABS Monocytes 0.6 10^3/ul (0-0.8); ABS Neutrophils 5.6 10^3/ul (1.5-7.7); Eosinophil % 1.6 %; Hematocrit 36 % (35-47); Hemoglobin 12.2 g/dL (12.0-16.0); Lymphocyte % 35.3 %; Mean Corpuscular HGB Conc 34 g/dL (31-36); Mean Corpuscular Hemoglobin 28 pg (27-31); Mean Corpuscular Volume 83 fL (80-97); Mean Platelet Volume 6.9 fL (7.4-10.4); Nucleated Red Blood Cells % 0.1; Platelet Count 306 10^3/uL (150-450); Red Blood Count 4.33 10^6 /uL (3.70-4.87); Red Cell Distribution Width 15 % (10-15); White Blood Count 9.9 10^3/uL (3.5-10.8)
[2019-09-30 18:51] LABS: INR 1.06 (0.82-1.09)
[2019-09-30 19:15] LABS: Albumin 3.9 g/dL (3.2-5.2); Albumin/Globulin Ratio 1.1 (1-3); BUN/Creatinine Ratio 9.9 (8-20); Calcium 8.9 mg/dL (8.6-10.3); EGFR African American 48.4 (>60); Globulin 3.4 g/dL (2-4); Magnesium 1.5 mg/dL (1.9-2.7); Potassium 3.7 mmol/L (3.5-5.0); Total Bilirubin 0.4 mg/dL (0.2-1.0); Total Protein 7.3 g/dL (6.4-8.9)
[2019-09-30 19:20] LABS: CKMB ng/mL 1.9 ng/mL (0.6-6.3)
--- NOTE | 2019-09-30 19:21 | ED ---
Progress - Progress Note Progress Note: Patient signed out by Dr. Deleon to Dr. Rojas at 19:00 on 09/30/2019 pending labs and disposition. Re-Evaluation - Re-Evaluation First Eval Re-Evaluation Time: 20:02 Change: Unchanged Comment: No change in the patient's constant chest pain over the past week. Second Eval Re-Evaluation Time: 20:45 Comment: Heart score of 3 (low risk, less than 2% chance of major adverse cardiac event in 30 days.) Course/Dx - Course Course Of Treatment: Patient signed out by Dr. Deelon to Dr. Rojas at 19:00 on pending labs and disposition. Laboratory results with no significant abnormalities except for an MPV of 6.9, chloride of 100, creatinine of 1.41, glucose of 205, and magnesium of 1.5. Patient will be signed out to Dr. Saldaña at 21:00 pending second troponin and disposition. The patient is agreeable with this plan. - Diagnoses Provider Diagnoses: Chest pain, Atypical chest pain - Critical Care Time Critical Care Statement: Critical care time is provided exclusive of any time spent performing procedures. Discharge ED - Sign-Out/Discharge Documenting (check all that apply): Sign-Out Patient, Receiving Sign-Out Signing out patient TO: Isac Saldaña - Pending second troponin and disposition. Receiving patient FROM: Keyon Deleon - Pending labs and disposition. - Discharge Plan Condition: Stable Referrals: Paige Barnett MD [Primary Care Provider] - - Attestation Statements Document Initiated by Scribe: Yes Documenting Scribe: Micheline Pryor Provider For Whom Scribe is Documenting (Include Credential): Jass Rojas MD Scribe Attestation: Micheline De Jeuss, scribed for Jass Rojas MD on 09/30/19 at 0428. Status of Scribe Document: Ready
[2019-09-30 20:09] LABS: TSH (Thyroid Stimulating Horm) 3.11 mcIU/mL (0.34-5.60)
--- NOTE | 2019-09-30 21:41 | ED ---
Progress - Progress Note Progress Note: Patient signed out by Dr. Rojas to Dr. Saldaña at 2200 on 09/30/2019 pending a second troponin and disposition. Course/Dx - Course Course Of Treatment: Patient signed out by Dr. Rojas to Dr. Saldaña at 2200 on pending a second troponin and disposition. Her second Troponin was negative. She will be discharged home with a Dx of atypical chest pain. - Diagnoses Provider Diagnoses: Chest pain, Atypical chest pain - Critical Care Time Critical Care Statement: Critical care time is provided exclusive of any time spent performing procedures. Discharge ED - Sign-Out/Discharge Documenting (check all that apply): Patient Departure - discharge , Receiving Sign-Out Receiving patient FROM: Jass Rojas - Discharge Plan Condition: Stable Disposition: HOME Patient Education Materials: Chest Pain (ED) Referrals: Paige Barnett MD [Primary Care Provider] - 1 Week - Billing Disposition and Condition Condition: STABLE Disposition: Home - Attestation Statements Document Initiated by Scribe: Yes Documenting Scribe: Chris Jasmine Provider For Whom Stacy is Documenting (Include Credential): Isac Saldaña MD Scribe Attestation: Chris De Jesus, scribed for Isac Saldaña MD on 10/01/19 at 0330. Scribe Documentation Reviewed: Yes Provider Attestation: The documentation as recorded by the Chris noel accurately reflects the service I personally performed and the decisions made by Isac murcia MD Status of Scribe Document: Viewed
[2019-09-30 23:11] VITALS: BP 129/81
== END 2019-09-30 23:10 | disposition home or self-care (01) ==
LOC: ED 16:44
DX: R07.89 Other chest pain (principal); R20.0 Anesthesia of skin; R07.9 Chest pain, unspecified; R53.1 Weakness; E78.00 Pure hypercholesterolemia, unspecified; E11.9 Type 2 diabetes mellitus without complications; R51 Headache; K21.9 Gastro-esophageal reflux disease without esophagitis; E03.9 Hypothyroidism, unspecified; Z88.0 Allergy status to penicillin; Z95.0 Presence of cardiac pacemaker; Z88.8 Allergy status to other drugs, medicaments and biological substances; Z79.4 Long term (current) use of insulin; F43.10 Post-traumatic stress disorder, unspecified; R94.31 Abnormal electrocardiogram [ECG] [EKG]
CPT/HCPCS: 36415; 70450; 71045; 80053; 82550; 82553; 83605; 83735; 83880; 84443; 84484; 85025; 85610; 93005; 99284

== ENCOUNTER 2019-11-17 12:22 | Inpatient (IN) ==
[2019-11-17] MEDS ORDERED: NS 0.9% 1000 ml BAG 1,000 ML IV ONE ×2 (12:46→14:14)
[2019-11-17 14:01] LABS: ABS Basophils 0.1 10^3/ul (0-0.2); ABS Eosinophils 0.1 10^3/ul (0-0.6); ABS Lymphocytes 3.5 10^3/ul (1.0-4.8); ABS Monocytes 0.7 10^3/ul (0-0.8); Eosinophil % 0.3 %; Hematocrit 39 % (35-47); Hemoglobin 12.9 g/dL (12.0-16.0); Lymphocyte % 21.5 %; Mean Corpuscular HGB Conc 33 g/dL (31-36); Mean Corpuscular Hemoglobin 28 pg (27-31); Mean Corpuscular Volume 84 fL (80-97); Platelet Count 293 10^3/uL (150-450); Red Blood Count 4.63 10^6 /uL (3.70-4.87); Red Cell Distribution Width 14 % (10-15); White Blood Count 16.1 10^3/uL (3.5-10.8)
[2019-11-17 14:20] LABS: ALT 12 U/L (7-52); Albumin/Globulin Ratio 1.1 (1-3); Alkaline Phosphatase 46 U/L (34-104); BUN/Creatinine Ratio 9.7 (8-20); Blood Urea Nitrogen 17 mg/dL (6-24); CO2 Carbon Dioxide 25 mmol/L (22-32); Calcium 8.4 mg/dL (8.6-10.3); Chloride 101 mmol/L (101-111); EGFR African American 37.5 (>60); Globulin 3.7 g/dL (2-4); Glucose 284 mg/dL (70-100); Magnesium 1.5 mg/dL (1.9-2.7); Sodium 132 mmol/L (135-145); Total Protein 7.7 g/dL (6.4-8.9)
[2019-11-17 14:35] LABS: Acetaminophen < 15 mcg/mL; Alcohol, S < 10 mg/dL (<10); Salicylate < 2.50 mg/dL (<30)
[2019-11-17] MEDS ORDERED: Magnesium Sulfate 2 gm BAG 2 GM/50 ML BAG IVPB ONE (14:46)
[2019-11-17 15:00] LABS: Anion Gap 6 mmol/L (2-11); Potassium 4.8 mmol/L (3.5-5.0)
[2019-11-17 15:06] LABS: AST 17 U/L (13-39)
[2019-11-17] MEDS: Naloxone 0.4 mg VIAL 0.4 mg/ml 1 ml VIAL IV PUSH ONE ×2 (15:14→15:18)
[2019-11-17] MEDS ORDERED: Naloxone 0.4 mg VIAL 0.4 mg/ml 1 ml VIAL ONE ×2 (15:16→15:26)
[2019-11-17] MEDS ORDERED: Naloxone 0.4 mg VIAL 0.4 mg/ml 1 ml VIAL IV PUSH ONE (15:24)
[2019-11-17] MEDS ORDERED: Rocuronium 50 mg VIAL 10 mg/ml 5 ml VIAL (50 mg) ONE (15:29)
[2019-11-17] MEDS ORDERED: Succinylcholine 200 mg VIAL 20 mg/ml 10 ml VIAL (200 mg) ONE ×2 (15:29→15:40)
[2019-11-17] MEDS ORDERED: Propofol 10 mg/ml 100 ML BTL 100 ML ONE (15:33)
[2019-11-17] MEDS ORDERED: Etomidate 40 mg/20 ml (2 MG/ML) 20 ml VIAL (40 mg) ONE (15:40)
[2019-11-17] MEDS: Propofol 10 mg/ml 100 ML BTL 100 ML IV SCH ×2 (15:42→20:17)
[2019-11-17 16:39] LABS: Urine Appearance Cloudy; Urine Bilirubin Negative (Negative); Urine Blood Negative (Negative); Urine Color Amber; Urine Glucose 2+(150 mg/dL) (Negative); Urine Ketones Negative (Negative); Urine Nitrite Negative (Negative); Urine Protein 1+(30 mg/dL) (Negative); Urine Specific Gravity 1.021 (1.010-1.030); Urine Urobilinogen Negative (Negative)
[2019-11-17 16:43] LABS: Urine Bacteria 1+ (Absent); Urine Granular Casts Present (Absent); Urine Red Blood Cell Trace(0-2/hpf) (Absent); Urine Squamous Epithelial Cell Present (Absent); Urine White Blood Cell Trace(0-5/hpf) (Absent)
[2019-11-17 16:51] LABS: Urine Benzodiazepine Screen None Detected (None Detect); Urine Opiates Screen None Detected (None Detect)
[2019-11-17] MEDS ORDERED: Dextrose 50% Syringe 50 ml 25 GM/50 ML SYRINGE IV PUSH PRN (17:16)
[2019-11-17] MEDS: Chlorhexidine MOUTHWASH 0.12% 15 ML UDC SWISH SPIT SCH ×2 (17:40→21:35)
[2019-11-17] MEDS: Pantoprazole VIAL 40 MG VIAL IV SCH (18:08)
[2019-11-17] MEDS: Insulin LISPRO 100 units/ml(*) SUBCUT SCH ×2 (18:08→23:42)
[2019-11-17] MEDS: Heparin 5000 UNITS/ML VIAL(*) 1 ml vial SUBCUT SCH (21:35)
[2019-11-18] MEDS: Propofol 10 mg/ml 100 ML BTL 100 ML IV SCH ×3 (01:34→12:39)
[2019-11-18] MEDS: Chlorhexidine MOUTHWASH 0.12% 15 ML UDC SWISH SPIT SCH ×4 (01:34→12:36)
[2019-11-18 04:03] LABS: ABS Basophils 0.1 10^3/ul (0-0.2); ABS Eosinophils 0.1 10^3/ul (0-0.6); ABS Monocytes 0.6 10^3/ul (0-0.8); Eosinophil % 1.2 %; Hematocrit 34 % (35-47); Hemoglobin 11.4 g/dL (12.0-16.0); Lymphocyte % 42.7 %; Mean Corpuscular HGB Conc 34 g/dL (31-36); Mean Corpuscular Hemoglobin 28 pg (27-31); Mean Corpuscular Volume 83 fL (80-97); Platelet Count 246 10^3/uL (150-450); Red Blood Count 4.11 10^6 /uL (3.70-4.87); Red Cell Distribution Width 13 % (10-15); White Blood Count 9.3 10^3/uL (3.5-10.8)
[2019-11-18 04:18] LABS: Albumin 3.2 g/dL (3.2-5.2); Albumin/Globulin Ratio 1.1 (1-3); BUN/Creatinine Ratio 10.8 (8-20); Calcium 8.2 mg/dL (8.6-10.3); EGFR African American 45.7 (>60); EGFR Non-African American 37.8 (>60); Globulin 2.9 g/dL (2-4); Magnesium 1.9 mg/dL (1.9-2.7); Phosphorus 2.5 mg/dL (2.5-5.0); Potassium 3.3 mmol/L (3.5-5.0); Total Bilirubin 0.3 mg/dL (0.2-1.0); Total Protein 6.1 g/dL (6.4-8.9)
[2019-11-18] MEDS: Insulin LISPRO 100 units/ml(*) SUBCUT SCH ×3 (05:04→20:32)
[2019-11-18] MEDS: Propofol* 20 ML VIAL - FOR IV LINE PRIMING ONLY SCH ×2 (05:04→13:56)
[2019-11-18] MEDS: Heparin 5000 UNITS/ML VIAL(*) 1 ml vial SUBCUT SCH ×3 (05:04→22:16)
[2019-11-18] MEDS: Lurasidone 80 mg TAB (*) PO SCH ×2 (07:38→07:56)
[2019-11-18] MEDS: LURASIDONE 20 MG PO SCH ×2 (07:38→07:56)
[2019-11-18] MEDS: Vilazodone 40 mg TAB (NF) PO SCH (07:56)
[2019-11-18] MEDS ORDERED: Albuterol 2.5mg/3 ml (0.083%) NEB.SOLN INH PRN (16:41)
[2019-11-18] MEDS: Pantoprazole VIAL 40 MG VIAL IV SCH (17:41)
[2019-11-19] MEDS: Insulin LISPRO 100 units/ml(*) SUBCUT SCH ×6 (00:12→22:00)
[2019-11-19] MEDS: Heparin 5000 UNITS/ML VIAL(*) 1 ml vial SUBCUT SCH ×3 (05:47→22:01)
[2019-11-19 05:56] LABS: ABS Basophils 0.1 10^3/ul (0-0.2); ABS Lymphocytes 2.7 10^3/ul (1.0-4.8); ABS Monocytes 0.8 10^3/ul (0-0.8); Eosinophil % 0.3 %; Hematocrit 37 % (35-47); Hemoglobin 12.2 g/dL (12.0-16.0); Lymphocyte % 20.8 %; Mean Corpuscular HGB Conc 33 g/dL (31-36); Mean Corpuscular Hemoglobin 28 pg (27-31); Mean Corpuscular Volume 84 fL (80-97); Nucleated Red Blood Cells % 0.1; Platelet Count 256 10^3/uL (150-450); Red Blood Count 4.43 10^6 /uL (3.70-4.87); Red Cell Distribution Width 13 % (10-15); White Blood Count 13.1 10^3/uL (3.5-10.8)
[2019-11-19 06:08] LABS: Albumin 3.6 g/dL (3.2-5.2); Albumin/Globulin Ratio 1.1 (1-3); BUN/Creatinine Ratio 8.6 (8-20); Calcium 9.1 mg/dL (8.6-10.3); EGFR African American 49.2 (>60); EGFR Non-African American 40.6 (>60); Globulin 3.4 g/dL (2-4); Potassium 4.7 mmol/L (3.5-5.0); Total Bilirubin 0.6 mg/dL (0.2-1.0)
[2019-11-19] MEDS: Lurasidone 80 mg TAB (*) PO SCH (07:52)
[2019-11-19] MEDS: Vilazodone 40 mg TAB (NF) PO SCH (07:52)
[2019-11-19] MEDS: LURASIDONE 20 MG PO SCH (07:52)
[2019-11-19] MEDS ORDERED: Senna TAB 8.6 mg TAB PO PRN (09:04)
[2019-11-19] MEDS: Pantoprazole VIAL 40 MG VIAL IV SCH (17:11)
[2019-11-20] MEDS: Heparin 5000 UNITS/ML VIAL(*) 1 ml vial SUBCUT SCH (04:18)
[2019-11-20 05:51] LABS: ABS Basophils 0.1 10^3/ul (0-0.2); ABS Eosinophils 0.2 10^3/ul (0-0.6); ABS Lymphocytes 2.7 10^3/ul (1.0-4.8); ABS Monocytes 0.6 10^3/ul (0-0.8); Eosinophil % 1.9 %; Hematocrit 36 % (35-47); Hemoglobin 11.9 g/dL (12.0-16.0); Lymphocyte % 27.4 %; Mean Corpuscular HGB Conc 33 g/dL (31-36); Mean Corpuscular Hemoglobin 28 pg (27-31); Mean Corpuscular Volume 84 fL (80-97); Mean Platelet Volume 7.1 fL (7.4-10.4); Platelet Count 245 10^3/uL (150-450); Red Blood Count 4.29 10^6 /uL (3.70-4.87); Red Cell Distribution Width 14 % (10-15); White Blood Count 9.7 10^3/uL (3.5-10.8)
[2019-11-20 06:08] LABS: Albumin 3.7 g/dL (3.2-5.2); BUN/Creatinine Ratio 9.7 (8-20); Calcium 9.5 mg/dL (8.6-10.3); EGFR African American 51.3 (>60); EGFR Non-African American 42.4 (>60); Globulin 3.6 g/dL (2-4); Potassium 4.4 mmol/L (3.5-5.0); Total Bilirubin 0.5 mg/dL (0.2-1.0); Total Protein 7.3 g/dL (6.4-8.9)
[2019-11-20] MEDS ORDERED: Insulin GLARGINE 100 un/ml (*) 10 ml VIAL SUBCUT SCH (08:00)
[2019-11-20] MEDS ORDERED: Enoxaparin 40 MG/0.4 ML SYR(*) SUBCUT SCH (08:00)
[2019-11-20] MEDS: Insulin LISPRO 100 units/ml(*) SUBCUT SCH ×3 (08:13→16:28)
[2019-11-20] MEDS: Vilazodone 40 mg TAB (NF) PO SCH (08:14)
[2019-11-20] MEDS: Pregabalin 25 mg CAP (*) PO SCH ×2 (08:23→14:06)
[2019-11-20 15:37] VITALS: BP 151/86
[2019-11-20] MEDS ORDERED: LURASIDONE 20 MG PO SCH (21:00)
[2019-11-20] MEDS ORDERED: Lurasidone 80 mg TAB (*) PO SCH (21:00)
== END 2019-11-20 16:25 | disposition home or self-care (01) | DRG 420 ==
LOC: ED 12:22 → ICU 16:30 → MED 11-19 11:36
PROVIDERS: ADMIT Internal Medicine; ATTEND Hospitalist

== ENCOUNTER 2021-02-02 12:22 | Inpatient (IN) ==
[2021-02-02] MEDS ORDERED: Dexamethasone IV 4 MG/ML 5 ML VIAL (20 MG) IVPB ONE (17:55)
[2021-02-02] MEDS ORDERED: Acetaminophen IV 1 GM/100ML 100 ML IV SCH (18:00)
[2021-02-02 18:24] LABS: Albumin 3.6 g/dL (3.2-5.2); Albumin/Globulin Ratio 1.1 (1-3); C Reactive Protein 4.7 mg/L (<8.01); Calcium 8.5 mg/dL (8.6-10.3); EGFR African American 49.4 (>60); EGFR Non-African American 40.8 (>60); Globulin 3.3 g/dL (2-4); Potassium 3.5 mmol/L (3.5-5.0); Total Bilirubin 0.3 mg/dL (0.2-1.0); Total Protein 6.9 g/dL (6.4-8.9)
[2021-02-02] MEDS: Acetaminophen IV 1 GM/100ML 100 ML IV PRN (21:20)
[2021-02-02 21:34] LABS: Rapid COVID-19 Molecular Undetected (Undetected)
[2021-02-02] MEDS ORDERED: Albuterol HFA INHALER 8 gm MDI INH PRN (21:50)
[2021-02-02] MEDS ORDERED: Dextrose 50% Syringe 50 ml 25 GM/50 ML SYRINGE IV PUSH PRN (21:52)
[2021-02-03 01:22] LABS: ABS Eosinophils 0.2 10^3/ul (0-0.6); ABS Lymphocytes 3.6 10^3/ul (1.0-4.8); ABS Monocytes 0.6 10^3/ul (0-0.8); ABS Neutrophils 4.6 10^3/ul (1.5-7.7); Eosinophil % 2.6 %; Hematocrit 36 % (35-47); Hemoglobin 11.9 g/dL (12.0-16.0); Mean Corpuscular HGB Conc 33 g/dL (31-36); Mean Corpuscular Hemoglobin 29 pg (27-31); Mean Corpuscular Volume 88 fL (80-97); Mean Platelet Volume 7.5 fL (7.4-10.4); Platelet Count 226 10^3/uL (150-450); Red Blood Count 4.08 10^6 /uL (3.70-4.87); Red Cell Distribution Width 15 % (10-15)
[2021-02-03] MEDS: Enoxaparin 40 MG/0.4 ML SYR SUBCUT SCH ×2 (01:46→21:29)
[2021-02-03] MEDS: Dexamethasone IV 4 MG/ML 5 ML VIAL (20 MG) IVPB SCH ×3 (04:20→19:51)
[2021-02-03] MEDS: Nystatin TOP POWDER 15 GM BTL TOPICAL SCH ×2 (07:50→21:30)
[2021-02-03] MEDS: Lidocaine PATCH 5% PATCH TRANSDERM SCH (07:51)
[2021-02-03] MEDS: Lurasidone 120 mg TAB PO SCH ×2 (07:56→21:28)
[2021-02-03] MEDS ORDERED: Perflutren Lipid Microsphere 3 ML VIAL ONE (08:09)
[2021-02-03] MEDS: Orphenadrine Citrate INJ 30 mg/ml 2 ml VIAL (60 mg) IV SCH ×2 (10:02→22:13)
[2021-02-03 13:33] LABS: Urine Appearance Cloudy; Urine Bilirubin Negative (Negative); Urine Blood Negative (Negative); Urine Color Yellow; Urine Glucose 3+(>=500 mg/dL) (Negative); Urine Ketones Negative (Negative); Urine Nitrite Negative (Negative); Urine Protein Negative (Negative); Urine Urobilinogen Negative (Negative)
[2021-02-03] MEDS: Insulin GLARGINE 100 un/ml 10 ml VIAL SUBCUT SCH (14:24)
[2021-02-03] MEDS: Acetaminophen IV 1 GM/100ML 100 ML IV PRN (21:34)
[2021-02-03] MEDS: Ondansetron 4 mg VIAL 2 MG/ML 2 ml VIAL IV PRN (22:19)
[2021-02-03] MEDS: Lidocaine Patch REMOVE PATCH PATCH OFF SCH (22:25)
[2021-02-04] MEDS: Dexamethasone IV 4 MG/ML 5 ML VIAL (20 MG) IVPB SCH ×3 (04:12→19:26)
[2021-02-04 06:11] LABS: ABS Lymphocytes 1.8 10^3/ul (1.0-4.8); ABS Monocytes 0.6 10^3/ul (0-0.8); ABS Neutrophils 14.1 10^3/ul (1.5-7.7); Hematocrit 37 % (35-47); Hemoglobin 12.3 g/dL (12.0-16.0); Lymphocyte % 10.7 %; Mean Corpuscular HGB Conc 33 g/dL (31-36); Mean Corpuscular Hemoglobin 29 pg (27-31); Mean Corpuscular Volume 87 fL (80-97); Mean Platelet Volume 7.6 fL (7.4-10.4); Platelet Count 250 10^3/uL (150-450); Red Blood Count 4.28 10^6 /uL (3.70-4.87); Red Cell Distribution Width 15 % (10-15); White Blood Count 16.4 10^3/uL (3.5-10.8)
[2021-02-04 06:20] LABS: INR 1.1 (0.86-1.15)
[2021-02-04 06:32] LABS: EGFR African American 39.6 (>60); EGFR Non-African American 32.7 (>60)
[2021-02-04 06:36] LABS: Potassium 5.7 mmol/L (3.5-5.0)
[2021-02-04 08:09] LABS: Activated Partial Thrombo Time 30.1 seconds (26.0-38.0)
[2021-02-04] MEDS: Orphenadrine Citrate INJ 30 mg/ml 2 ml VIAL (60 mg) IV SCH ×2 (08:17→21:43)
[2021-02-04] MEDS: Nystatin TOP POWDER 15 GM BTL TOPICAL SCH ×2 (08:17→19:29)
[2021-02-04] MEDS: Lidocaine PATCH 5% PATCH TRANSDERM SCH (08:17)
[2021-02-04 09:02] LABS: Calcium 8.2 mg/dL (8.6-10.3); EGFR African American 43.2 (>60); EGFR Non-African American 35.7 (>60); Potassium 4.9 mmol/L (3.5-5.0)
[2021-02-04] MEDS: Acetaminophen IV 1 GM/100ML 100 ML IV PRN (11:51)
[2021-02-04] MEDS: Insulin GLARGINE 100 un/ml 10 ml VIAL SUBCUT SCH (13:46)
[2021-02-04] MEDS: Lurasidone 120 mg TAB PO SCH (19:24)
[2021-02-04] MEDS: Enoxaparin 40 MG/0.4 ML SYR SUBCUT SCH (19:30)
[2021-02-04] MEDS: Lidocaine Patch REMOVE PATCH PATCH OFF SCH (19:32)
[2021-02-05] MEDS: Dexamethasone IV 4 MG/ML 5 ML VIAL (20 MG) IVPB SCH ×3 (04:02→20:23)
[2021-02-05 06:11] LABS: ABS Lymphocytes 1.9 10^3/ul (1.0-4.8); ABS Monocytes 0.5 10^3/ul (0-0.8); ABS Neutrophils 10.5 10^3/ul (1.5-7.7); Hematocrit 37 % (35-47); Hemoglobin 12.3 g/dL (12.0-16.0); Lymphocyte % 14.7 %; Mean Corpuscular HGB Conc 33 g/dL (31-36); Mean Corpuscular Hemoglobin 29 pg (27-31); Mean Corpuscular Volume 88 fL (80-97); Mean Platelet Volume 7.5 fL (7.4-10.4); Platelet Count 258 10^3/uL (150-450); Red Blood Count 4.26 10^6 /uL (3.70-4.87); Red Cell Distribution Width 15 % (10-15); White Blood Count 12.9 10^3/uL (3.5-10.8)
[2021-02-05 06:21] LABS: INR 1.08 (0.86-1.15)
[2021-02-05 06:33] LABS: Calcium 8.4 mg/dL (8.6-10.3); EGFR African American 50.2 (>60); EGFR Non-African American 41.5 (>60); Potassium 4.7 mmol/L (3.5-5.0)
[2021-02-05] MEDS ORDERED: Clindamycin 900 MG/D5W BAG 900 MG/50 ML BAG IVPB ONE (07:00)
[2021-02-05] MEDS ORDERED: Polyethylene Glycol 3350 17 GM PACKET PO PRN (08:42)
[2021-02-05] MEDS: Magnesium Hydroxide LIQ 30 ML UDC PO SCH ×2 (09:14→21:31)
[2021-02-05] MEDS: Nystatin TOP POWDER 15 GM BTL TOPICAL SCH ×2 (09:15→21:35)
[2021-02-05] MEDS: Lidocaine PATCH 5% PATCH TRANSDERM SCH (09:15)
[2021-02-05] MEDS: Orphenadrine Citrate INJ 30 mg/ml 2 ml VIAL (60 mg) IV SCH ×2 (09:19→21:31)
[2021-02-05] MEDS: Insulin GLARGINE 100 un/ml 10 ml VIAL SUBCUT SCH (15:09)
[2021-02-05] MEDS: Ondansetron 4 mg VIAL 2 MG/ML 2 ml VIAL IV PRN (17:38)
[2021-02-05] MEDS: Lurasidone 120 mg TAB PO SCH (21:28)
[2021-02-05] MEDS: Lidocaine Patch REMOVE PATCH PATCH OFF SCH (21:31)
[2021-02-06] MEDS: Dexamethasone IV 4 MG/ML 5 ML VIAL (20 MG) IVPB SCH ×2 (04:13→15:35)
[2021-02-06 05:51] LABS: ABS Lymphocytes 2.2 10^3/ul (1.0-4.8); ABS Monocytes 0.6 10^3/ul (0-0.8); ABS Neutrophils 7.8 10^3/ul (1.5-7.7); Hematocrit 38 % (35-47); Hemoglobin 12.3 g/dL (12.0-16.0); Lymphocyte % 20.7 %; Mean Corpuscular HGB Conc 33 g/dL (31-36); Mean Corpuscular Hemoglobin 29 pg (27-31); Mean Corpuscular Volume 88 fL (80-97); Mean Platelet Volume 7.2 fL (7.4-10.4); Platelet Count 251 10^3/uL (150-450); Red Blood Count 4.28 10^6 /uL (3.70-4.87); Red Cell Distribution Width 15 % (10-15); White Blood Count 10.5 10^3/uL (3.5-10.8)
[2021-02-06] MEDS ORDERED: Lactated Ringers 1000 ml BAG 1,000 ML IV SCH (06:00)
[2021-02-06] MEDS ORDERED: Buffered Lidocaine 1% SYRIN 1 ml INTRADERM ONE (06:00)
[2021-02-06 06:05] LABS: INR 1.06 (0.86-1.15)
[2021-02-06 06:13] LABS: Calcium 8.6 mg/dL (8.6-10.3); EGFR African American 49.4 (>60); EGFR Non-African American 40.8 (>60)
[2021-02-06] MEDS ORDERED: Vancomycin 1,000 MG VIAL ONE ×2 (07:00→11:16)
[2021-02-06] MEDS ORDERED: Clindamycin 900 MG/D5W BAG IVPB ONE (07:00)
[2021-02-06] MEDS ORDERED: ceFAZolin VIAL VIAL ONE (07:00)
[2021-02-06] MEDS ORDERED: Bupivacaine 0.5% SDV PF 30ML VIAL ONE (07:01)
[2021-02-06] MEDS ORDERED: Thrombin 5,000 UNITS(BOVINE) for Ultrasound Guided Pseudoaneursym ONE (07:12)
[2021-02-06] MEDS ORDERED: Gelfoam Sponge SIZE 100 SPONGE ONE (07:14)
[2021-02-06] MEDS ORDERED: Midazolam 2 mg/2 ml VIAL 1 mg/ml 2 ml VIAL (2 mg) ONE (07:15)
[2021-02-06] MEDS ORDERED: fentaNYL 100 mcg/2 ml 50 MCG/ML VIAL ONE (07:15)
[2021-02-06] MEDS ORDERED: Rocuronium 50 mg VIAL 10 mg/ml 5 ml VIAL (50 mg) ONE ×3 (07:15→10:04)
[2021-02-06] MEDS ORDERED: HYDROmorphone 1 MG/1 ML SYRINGE ONE ×2 (07:16→12:58)
[2021-02-06] MEDS ORDERED: Glycopyrrolate IV 0.2 MG/ML 1 ML VIAL ONE (07:16)
[2021-02-06] MEDS ORDERED: Dexamethasone IV 4 MG/ML VIAL 1 ml VIAL ONE (07:16)
[2021-02-06] MEDS ORDERED: Ondansetron 4 mg VIAL 2 MG/ML 2 ml VIAL ONE (07:16)
[2021-02-06] MEDS ORDERED: Ketamine HCL 50 mg/ml 10 ml VIAL (500 MG) ONE (07:16)
[2021-02-06] MEDS ORDERED: Propofol 10 MG/ML 20 ML BTL ONE ×2 (07:16→07:44)
[2021-02-06] MEDS ORDERED: Lidocaine 2% PF 5 ML VIAL ONE (07:18)
[2021-02-06] MEDS ORDERED: Naloxone 0.4 mg VIAL 0.4 mg/ml 1 ml VIAL IV PRN (07:18)
[2021-02-06] MEDS ORDERED: diPHENhydraMINE IV 50 MG/ML 1 ml VIAL (BENADRYL) IV PRN (07:18)
[2021-02-06] MEDS ORDERED: DiMENhydriNATE IV 50 mg/ml 1 ml VIAL IV PUSH PRN (07:18)
[2021-02-06] MEDS ORDERED: Phenylephrine IV 10 MG/ML 1 ml VIAL ONE (07:18)
[2021-02-06] MEDS: Nystatin TOP POWDER 15 GM BTL TOPICAL SCH ×2 (09:56→21:42)
[2021-02-06] MEDS: Magnesium Hydroxide LIQ 30 ML UDC PO SCH ×2 (09:56→21:48)
[2021-02-06] MEDS ORDERED: Acetaminophen IV 1 GM/100ML 100 ML IV ONE ×2 (10:04→13:33)
[2021-02-06] MEDS ORDERED: Sugammadex 500 MG/5 ML 5 ml VIAL IV PUSH ONE (11:00)
[2021-02-06] MEDS ORDERED: Bacitracin OINTMENT TUBE ONE (11:26)
[2021-02-06] MEDS: HYDROmorphone 1 MG/1 ML SYRINGE IV PRN ×5 (12:58→14:09)
[2021-02-06] MEDS: Acetaminophen IV 1 GM/100ML 100 ML IV PRN (13:36)
[2021-02-06] MEDS: Lidocaine PATCH 5% PATCH TRANSDERM SCH (13:38)
[2021-02-06] MEDS: Insulin GLARGINE 100 un/ml 10 ml VIAL SUBCUT SCH (14:46)
[2021-02-06] MEDS ORDERED: Insulin GLARGINE 100 un/ml 10 ml VIAL SUBCUT SCH (15:30)
[2021-02-06] MEDS: Orphenadrine Citrate INJ 30 mg/ml 2 ml VIAL (60 mg) IV SCH (15:34)
[2021-02-06] MEDS: NS 0.9% 1,000 ML IV SCH ×2 (16:00→18:13)
[2021-02-06] MEDS: Clindamycin 900 MG IVPREMIX- Q8H IVPB SCH (16:09)
[2021-02-06] MEDS ORDERED: NS 0.9% 1000 ml BAG 1,000 ML IV ONE (17:19)
[2021-02-06 17:45] LABS: ABS Lymphocytes 3.2 10^3/ul (1.0-4.8); ABS Monocytes 1.4 10^3/ul (0-0.8); ABS Neutrophils 12.9 10^3/ul (1.5-7.7); Hematocrit 32 % (35-47); Hemoglobin 10.1 g/dL (12.0-16.0); Lymphocyte % 18.1 %; Mean Corpuscular HGB Conc 32 g/dL (31-36); Mean Corpuscular Hemoglobin 28 pg (27-31); Mean Corpuscular Volume 88 fL (80-97); Mean Platelet Volume 7.3 fL (7.4-10.4); Platelet Count 255 10^3/uL (150-450); Red Cell Distribution Width 15 % (10-15); White Blood Count 17.5 10^3/uL (3.5-10.8)
[2021-02-06 18:02] LABS: Calcium 7.6 mg/dL (8.6-10.3); EGFR African American 37.8 (>60); EGFR Non-African American 31.2 (>60)
[2021-02-06] MEDS: Lidocaine Patch REMOVE PATCH PATCH OFF SCH (21:51)
[2021-02-06] MEDS: Lurasidone 120 mg TAB PO SCH (21:51)
[2021-02-07] MEDS: Clindamycin 900 MG IVPREMIX- Q8H IVPB SCH ×3 (00:43→17:12)
[2021-02-07] MEDS ORDERED: NS 0.9% 500 ml BAG 500 ML IV ONE (06:50)
[2021-02-07 07:16] LABS: Hematocrit 31 % (35-47); Hemoglobin 10.3 g/dL (12.0-16.0); Mean Corpuscular HGB Conc 33 g/dL (31-36); Mean Corpuscular Hemoglobin 29 pg (27-31); Mean Corpuscular Volume 88 fL (80-97); Mean Platelet Volume 7.3 fL (7.4-10.4); Platelet Count 218 10^3/uL (150-450); Red Blood Count 3.53 10^6 /uL (3.70-4.87); Red Cell Distribution Width 15 % (10-15); White Blood Count 13.5 10^3/uL (3.5-10.8)
[2021-02-07] MEDS ORDERED: Lactated Ringers 1000 ml BAG 1,000 ML IV ONE (07:18)
[2021-02-07 07:32] LABS: Albumin 3.3 g/dL (3.2-5.2); Albumin/Globulin Ratio 1.2 (1-3); Calcium 7.8 mg/dL (8.6-10.3); EGFR African American 41.3 (>60); EGFR Non-African American 34.2 (>60); Globulin 2.7 g/dL (2-4); Potassium 4.2 mmol/L (3.5-5.0); Total Bilirubin 0.3 mg/dL (0.2-1.0)
[2021-02-07 08:18] LABS: Urine Appearance Cloudy; Urine Bilirubin Negative (Negative); Urine Blood 1+ (Negative); Urine Color Yellow; Urine Glucose Negative (Negative); Urine Ketones Negative (Negative); Urine Nitrite Negative (Negative); Urine Protein Negative (Negative); Urine Specific Gravity 1.013 (1.002-1.030); Urine Urobilinogen Negative (Negative)
[2021-02-07 08:25] LABS: Urine Bacteria 3+ (Absent); Urine Granular Casts Present (Absent); Urine Red Blood Cell 1+(3-5/hpf) (Absent); Urine Squamous Epithelial Cell Present (Absent); Urine White Blood Cell Trace(0-5/hpf) (Absent)
[2021-02-07] MEDS: Nystatin TOP POWDER 15 GM BTL TOPICAL SCH ×2 (08:57→21:18)
[2021-02-07] MEDS: Magnesium Hydroxide LIQ 30 ML UDC PO SCH ×2 (08:58→21:18)
[2021-02-07] MEDS: Lidocaine PATCH 5% PATCH TRANSDERM SCH (09:01)
[2021-02-07] MEDS: Enoxaparin 40 MG/0.4 ML SYR SUBCUT SCH (12:26)
[2021-02-07] MEDS: Insulin GLARGINE 100 un/ml 10 ml VIAL SUBCUT SCH (15:05)
[2021-02-07] MEDS: NS 0.9% 1,000 ML IV SCH (15:18)
[2021-02-07 15:55] LABS: Hematocrit 31 % (35-47)
[2021-02-07] MEDS: Lurasidone 120 mg TAB PO SCH (21:21)
[2021-02-07] MEDS: Lidocaine Patch REMOVE PATCH PATCH OFF SCH (21:25)
[2021-02-08] MEDS: Clindamycin 900 MG IVPREMIX- Q8H IVPB SCH ×3 (00:11→17:12)
[2021-02-08] MEDS: NS 0.9% 1,000 ML IV SCH (04:19)
[2021-02-08 06:53] LABS: Hematocrit 30 % (35-47); Hemoglobin 9.9 g/dL (12.0-16.0); Mean Corpuscular HGB Conc 33 g/dL (31-36); Mean Corpuscular Hemoglobin 29 pg (27-31); Mean Corpuscular Volume 88 fL (80-97); Mean Platelet Volume 7.3 fL (7.4-10.4); Platelet Count 196 10^3/uL (150-450); Red Blood Count 3.41 10^6 /uL (3.70-4.87); Red Cell Distribution Width 15 % (10-15); White Blood Count 11.2 10^3/uL (3.5-10.8)
[2021-02-08 07:09] LABS: Albumin 3.2 g/dL (3.2-5.2); Albumin/Globulin Ratio 1.1 (1-3); Calcium 7.7 mg/dL (8.6-10.3); EGFR African American 44.2 (>60); EGFR Non-African American 36.5 (>60); Globulin 2.8 g/dL (2-4); Potassium 4.4 mmol/L (3.5-5.0); Total Bilirubin 0.3 mg/dL (0.2-1.0)
[2021-02-08] MEDS: Magnesium Hydroxide LIQ 30 ML UDC PO SCH ×2 (08:44→22:24)
[2021-02-08] MEDS: Nystatin TOP POWDER 15 GM BTL TOPICAL SCH ×2 (08:46→22:29)
[2021-02-08] MEDS: Lidocaine PATCH 5% PATCH TRANSDERM SCH (08:47)
[2021-02-08] MEDS: Acetaminophen IV 1 GM/100ML 100 ML IV PRN (12:09)
[2021-02-08] MEDS: Enoxaparin 40 MG/0.4 ML SYR SUBCUT SCH (12:12)
[2021-02-08] MEDS: Insulin GLARGINE 100 un/ml 10 ml VIAL SUBCUT SCH (13:24)
[2021-02-08] MEDS: Lidocaine Patch REMOVE PATCH PATCH OFF SCH (22:28)
[2021-02-08] MEDS: Lurasidone 120 mg TAB PO SCH (23:01)
[2021-02-09] MEDS: Clindamycin 900 MG IVPREMIX- Q8H IVPB SCH ×4 (00:27→23:48)
[2021-02-09] MEDS: NS 0.9% 1,000 ML IV SCH ×2 (02:42→17:00)
[2021-02-09 06:07] LABS: Hematocrit 26 % (35-47); Hemoglobin 8.6 g/dL (12.0-16.0); Mean Corpuscular HGB Conc 34 g/dL (31-36); Mean Corpuscular Hemoglobin 29 pg (27-31); Mean Corpuscular Volume 87 fL (80-97); Mean Platelet Volume 7.3 fL (7.4-10.4); Platelet Count 196 10^3/uL (150-450); Red Blood Count 2.94 10^6 /uL (3.70-4.87); Red Cell Distribution Width 15 % (10-15); White Blood Count 11.3 10^3/uL (3.5-10.8)
[2021-02-09 06:23] LABS: ALT 15 U/L (7-52); AST 39 U/L (13-39); Albumin 2.9 g/dL (3.2-5.2); Albumin/Globulin Ratio 1.2 (1-3); Alkaline Phosphatase 30 U/L (35-149); Anion Gap 5 mmol/L (2-11); Blood Urea Nitrogen 16 mg/dL (6-24); CO2 Carbon Dioxide 27 mmol/L (22-32); Calcium 7.5 mg/dL (8.6-10.3); Chloride 103 mmol/L (101-111); EGFR Non-African American 38.9 (>60); Globulin 2.5 g/dL (2-4); Glucose 220 mg/dL (70-100); Potassium 4.5 mmol/L (3.5-5.0); Sodium 135 mmol/L (135-145); Total Protein 5.4 g/dL (6.4-8.9)
[2021-02-09] MEDS: Nystatin TOP POWDER 15 GM BTL TOPICAL SCH ×2 (08:18→23:47)
[2021-02-09] MEDS: Magnesium Hydroxide LIQ 30 ML UDC PO SCH ×2 (08:19→23:36)
[2021-02-09] MEDS: Lidocaine PATCH 5% PATCH TRANSDERM SCH (08:22)
[2021-02-09] MEDS ORDERED: Calcium Gluconate 2 GM in NS 0.9% 100 ml BAG 100 ML IV ONE (11:20)
[2021-02-09] MEDS: Enoxaparin 40 MG/0.4 ML SYR SUBCUT SCH (12:33)
[2021-02-09] MEDS: Insulin GLARGINE 100 un/ml 10 ml VIAL SUBCUT SCH (13:57)
[2021-02-09 17:04] LABS: Hematocrit 27 % (35-47); Hemoglobin 8.9 g/dL (12.0-16.0)
[2021-02-09] MEDS: Lidocaine Patch REMOVE PATCH PATCH OFF SCH (20:15)
[2021-02-09] MEDS: Lurasidone 120 mg TAB PO SCH (23:46)
[2021-02-10] MEDS: NS 0.9% 1,000 ML IV SCH (04:00)
[2021-02-10] MEDS: Clindamycin 900 MG IVPREMIX- Q8H IVPB SCH ×3 (08:00→23:41)
[2021-02-10] MEDS: Magnesium Hydroxide LIQ 30 ML UDC PO SCH ×2 (08:38→20:17)
[2021-02-10] MEDS: Lidocaine PATCH 5% PATCH TRANSDERM SCH (08:39)
[2021-02-10] MEDS: Nystatin TOP POWDER 15 GM BTL TOPICAL SCH ×2 (08:42→20:16)
[2021-02-10] MEDS: Acetaminophen IV 1 GM/100ML 100 ML IV PRN (08:42)
[2021-02-10] MEDS: Enoxaparin 40 MG/0.4 ML SYR SUBCUT SCH (11:46)
[2021-02-10] MEDS: NS 0.9% 1000 ml BAG 1,000 ML IV SCH ×2 (11:47→16:49)
[2021-02-10 13:31] LABS: Urine Appearance Cloudy; Urine Bilirubin Negative (Negative); Urine Blood 2+ (Negative); Urine Color Yellow; Urine Glucose Negative (Negative); Urine Ketones Negative (Negative); Urine Nitrite Negative (Negative); Urine Protein Negative (Negative); Urine Specific Gravity 1.004 (1.002-1.030); Urine Urobilinogen Negative (Negative)
[2021-02-10 13:39] LABS: Urine Bacteria 1+ (Absent); Urine Red Blood Cell 1+(3-5/hpf) (Absent); Urine Squamous Epithelial Cell Present (Absent); Urine White Blood Cell 3+(>20/hpf) (Absent)
[2021-02-10] MEDS: Insulin GLARGINE 100 un/ml 10 ml VIAL SUBCUT SCH (14:10)
[2021-02-10] MEDS: Lurasidone 120 mg TAB PO SCH (20:14)
[2021-02-10] MEDS: Lidocaine Patch REMOVE PATCH PATCH OFF SCH (20:17)
[2021-02-11] MEDS: Clindamycin 900 MG IVPREMIX- Q8H IVPB SCH ×3 (08:44→23:52)
[2021-02-11] MEDS: Nystatin TOP POWDER 15 GM BTL TOPICAL SCH ×2 (10:00→20:59)
[2021-02-11] MEDS: Lidocaine PATCH 5% PATCH TRANSDERM SCH (10:44)
[2021-02-11] MEDS: Magnesium Hydroxide LIQ 30 ML UDC PO SCH ×2 (10:44→20:59)
[2021-02-11] MEDS: Enoxaparin 40 MG/0.4 ML SYR SUBCUT SCH (12:55)
[2021-02-11] MEDS: NS 0.9% 1000 ml BAG 1,000 ML IV SCH (15:39)
[2021-02-11] MEDS: Insulin GLARGINE 100 un/ml 10 ml VIAL SUBCUT SCH (15:51)
[2021-02-11] MEDS: Lidocaine Patch REMOVE PATCH PATCH OFF SCH (20:58)
[2021-02-11] MEDS: Lurasidone 120 mg TAB PO SCH (20:59)
[2021-02-12 00:20] LABS: ABS Basophils 0.1 10^3/ul (0-0.2); ABS Eosinophils 0.4 10^3/ul (0-0.6); ABS Lymphocytes 2.8 10^3/ul (1.0-4.8); ABS Monocytes 1.1 10^3/ul (0-0.8); ABS Neutrophils 7.7 10^3/ul (1.5-7.7); Eosinophil % 3.1 %; Hematocrit 22 % (35-47); Hemoglobin 7.5 g/dL (12.0-16.0); Lymphocyte % 23.4 %; Mean Corpuscular HGB Conc 34 g/dL (31-36); Mean Corpuscular Hemoglobin 30 pg (27-31); Mean Corpuscular Volume 88 fL (80-97); Mean Platelet Volume 6.8 fL (7.4-10.4); Nucleated Red Blood Cells % 0.2; Platelet Count 308 10^3/uL (150-450); Red Blood Count 2.54 10^6 /uL (3.70-4.87); Red Cell Distribution Width 15 % (10-15); White Blood Count 12.1 10^3/uL (3.5-10.8)
[2021-02-12 00:47] LABS: Potassium 3.8 mmol/L (3.5-5.0)
[2021-02-12 00:53] LABS: C Reactive Protein 144.49 mg/L (<8.01); EGFR African American 51.5 (>60); EGFR Non-African American 42.6 (>60)
[2021-02-12 01:19] LABS: Total Iron Binding Capacity 256 mcg/dL (250-450); Transferrin 183 mg/dL (203-362)
[2021-02-12 01:28] LABS: % Iron Saturation 8 % (15-55); Iron < 20 ug/dL (50-212); Unsaturated Iron Binding < 241 ug/dL
[2021-02-12 01:38] LABS: Ferritin 79.1 ng/mL (11-307)
[2021-02-12 06:14] LABS: Hematocrit 22 % (35-47); Hemoglobin 7.4 g/dL (12.0-16.0)
[2021-02-12] MEDS: Lidocaine PATCH 5% PATCH TRANSDERM SCH (08:47)
[2021-02-12] MEDS: Nystatin TOP POWDER 15 GM BTL TOPICAL SCH ×2 (09:14→22:10)
[2021-02-12] MEDS: Clindamycin 900 MG IVPREMIX- Q8H IVPB SCH ×2 (09:17→16:41)
[2021-02-12] MEDS: Magnesium Hydroxide LIQ 30 ML UDC PO SCH ×2 (09:21→22:10)
[2021-02-12] MEDS ORDERED: Insulin GLARGINE 100 un/ml 10 ml VIAL SUBCUT SCH (14:00)
[2021-02-12 19:45] LABS: Hematocrit 31 % (35-47); Hemoglobin 10.3 g/dL (12.0-16.0)
[2021-02-12] MEDS: Lurasidone 120 mg TAB PO SCH (22:07)
[2021-02-12] MEDS: Lidocaine Patch REMOVE PATCH PATCH OFF SCH (22:10)
[2021-02-13] MEDS: Clindamycin 900 MG IVPREMIX- Q8H IVPB SCH ×2 (00:15→08:02)
[2021-02-13 07:33] VITALS: BP 112/77
[2021-02-13] MEDS: Magnesium Hydroxide LIQ 30 ML UDC PO SCH (07:52)
[2021-02-13] MEDS: Nystatin TOP POWDER 15 GM BTL TOPICAL SCH (07:52)
[2021-02-13] MEDS: Lidocaine PATCH 5% PATCH TRANSDERM SCH (07:52)
[2021-02-13 08:12] LABS: ABS Eosinophils 0.3 10^3/ul (0-0.6); ABS Lymphocytes 2.5 10^3/ul (1.0-4.8); ABS Monocytes 0.8 10^3/ul (0-0.8); ABS Neutrophils 6.1 10^3/ul (1.5-7.7); Eosinophil % 2.9 %; Hematocrit 31 % (35-47); Hemoglobin 10.9 g/dL (12.0-16.0); Lymphocyte % 25.9 %; Mean Corpuscular HGB Conc 35 g/dL (31-36); Mean Corpuscular Hemoglobin 30 pg (27-31); Mean Corpuscular Volume 85 fL (80-97); Mean Platelet Volume 6.9 fL (7.4-10.4); Nucleated Red Blood Cells % 0.1; Platelet Count 376 10^3/uL (150-450); Red Blood Count 3.66 10^6 /uL (3.70-4.87); Red Cell Distribution Width 16 % (10-15); White Blood Count 9.7 10^3/uL (3.5-10.8)
[2021-02-13 08:27] LABS: Calcium 8.2 mg/dL (8.6-10.3); EGFR African American 52.4 (>60); EGFR Non-African American 43.3 (>60); Potassium 3.6 mmol/L (3.5-5.0)
[2021-02-13] MEDS ORDERED: Sulfamethox/Trimethoprim DS TAB 800/160 mg PO SCH (09:00)
[2021-02-13] MEDS ORDERED: Enoxaparin 40 MG/0.4 ML SYR SUBCUT SCH (10:00)
== END 2021-02-13 11:20 | DRG 23 ==
LOC: ED 12:22 → SSU 20:40 → SUATTDRO 20:40 → SSU 02-03 01:09
PROVIDERS: ADMIT Student in an Organized Health Care Education/Training Program; ATTEND Hospitalist

== ENCOUNTER 2021-02-13 11:21 | Inpatient (IN) ==
[2021-02-13] MEDS ORDERED: Magnesium Hydroxide LIQ 30 ML UDC PO PRN (13:00)
[2021-02-13] MEDS ORDERED: Senna TAB 8.6 mg TAB PO PRN (13:00)
[2021-02-13] MEDS ORDERED: Dextrose 50% Syringe 50 ml 25 GM/50 ML SYRINGE IV PUSH PRN (13:44)
[2021-02-13] MEDS: Insulin GLARGINE 100 un/ml 10 ml VIAL SUBCUT SCH (15:27)
[2021-02-13] MEDS: Lurasidone 120 mg TAB PO SCH (20:19)
[2021-02-13] MEDS: Sulfamethox/Trimethoprim DS TAB 800/160 mg PO SCH (20:20)
[2021-02-14] MEDS: CMCS: Vilazodone 40 mg TAB (NF) PO SCH (07:30)
[2021-02-14] MEDS: Sulfamethox/Trimethoprim DS TAB 800/160 mg PO SCH ×2 (07:31→20:47)
[2021-02-14] MEDS: Enoxaparin 40 MG/0.4 ML SYR SUBCUT SCH (11:21)
[2021-02-14] MEDS: Insulin GLARGINE 100 un/ml 10 ml VIAL SUBCUT SCH (13:01)
[2021-02-14] MEDS: Nystatin TOP POWDER 15 GM BTL TOPICAL SCH (20:45)
[2021-02-14] MEDS: Lurasidone 120 mg TAB PO SCH (20:46)
[2021-02-15 06:58] LABS: ABS Basophils 0.1 10^3/ul (0-0.2); ABS Eosinophils 0.3 10^3/ul (0-0.6); ABS Lymphocytes 2.6 10^3/ul (1.0-4.8); ABS Monocytes 0.7 10^3/ul (0-0.8); ABS Neutrophils 5.8 10^3/ul (1.5-7.7); Eosinophil % 2.8 %; Hematocrit 30 % (35-47); Hemoglobin 10.3 g/dL (12.0-16.0); Lymphocyte % 27.9 %; Mean Corpuscular HGB Conc 34 g/dL (31-36); Mean Corpuscular Hemoglobin 29 pg (27-31); Mean Corpuscular Volume 86 fL (80-97); Mean Platelet Volume 6.9 fL (7.4-10.4); Platelet Count 429 10^3/uL (150-450); Red Blood Count 3.55 10^6 /uL (3.70-4.87); Red Cell Distribution Width 15 % (10-15); White Blood Count 9.5 10^3/uL (3.5-10.8)
[2021-02-15 07:23] LABS: Albumin 2.8 g/dL (3.2-5.2); Calcium 8.3 mg/dL (8.6-10.3); EGFR Non-African American 40.5 (>60); Globulin 2.8 g/dL (2-4); Total Bilirubin 0.3 mg/dL (0.2-1.0); Total Protein 5.6 g/dL (6.4-8.9)
[2021-02-15] MEDS: Sulfamethox/Trimethoprim DS TAB 800/160 mg PO SCH ×2 (08:33→20:17)
[2021-02-15] MEDS: CMCS: Vilazodone 40 mg TAB (NF) PO SCH (08:33)
[2021-02-15] MEDS: Nystatin TOP POWDER 15 GM BTL TOPICAL SCH ×2 (08:37→20:17)
[2021-02-15] MEDS: Enoxaparin 40 MG/0.4 ML SYR SUBCUT SCH (08:41)
[2021-02-15] MEDS: Insulin GLARGINE 100 un/ml 10 ml VIAL SUBCUT SCH (13:38)
[2021-02-15] MEDS: Lurasidone 120 mg TAB PO SCH (20:17)
[2021-02-16] MEDS: CMCS: Vilazodone 40 mg TAB (NF) PO SCH (07:48)
[2021-02-16] MEDS: Sulfamethox/Trimethoprim DS TAB 800/160 mg PO SCH ×2 (07:49→21:14)
[2021-02-16] MEDS: Enoxaparin 40 MG/0.4 ML SYR SUBCUT SCH (10:56)
[2021-02-16] MEDS: Nystatin TOP POWDER 15 GM BTL TOPICAL SCH ×2 (10:57→21:13)
[2021-02-16] MEDS: Polyethylene Glycol 3350 17 GM PACKET PO PRN (12:49)
[2021-02-16] MEDS: Insulin GLARGINE 100 un/ml 10 ml VIAL SUBCUT SCH (14:12)
[2021-02-16] MEDS: Lurasidone 120 mg TAB PO SCH (21:13)
[2021-02-17] MEDS: Polyethylene Glycol 3350 17 GM PACKET PO PRN (08:46)
[2021-02-17] MEDS: Sulfamethox/Trimethoprim DS TAB 800/160 mg PO SCH ×2 (08:50→21:14)
[2021-02-17] MEDS: CMCS: Vilazodone 40 mg TAB (NF) PO SCH (08:50)
[2021-02-17] MEDS: Nystatin TOP POWDER 15 GM BTL TOPICAL SCH ×2 (08:53→21:15)
[2021-02-17] MEDS: Enoxaparin 40 MG/0.4 ML SYR SUBCUT SCH (08:54)
[2021-02-17] MEDS: Insulin GLARGINE 100 un/ml 10 ml VIAL SUBCUT SCH (13:34)
[2021-02-17] MEDS: Lurasidone 120 mg TAB PO SCH (21:14)
[2021-02-18] MEDS: Sulfamethox/Trimethoprim DS TAB 800/160 mg PO SCH ×2 (10:50→21:29)
[2021-02-18] MEDS: CMCS: Vilazodone 40 mg TAB (NF) PO SCH (10:50)
[2021-02-18] MEDS: Enoxaparin 40 MG/0.4 ML SYR SUBCUT SCH (10:51)
[2021-02-18] MEDS: Nystatin TOP POWDER 15 GM BTL TOPICAL SCH ×2 (10:58→21:28)
[2021-02-18] MEDS: Insulin GLARGINE 100 un/ml 10 ml VIAL SUBCUT SCH (12:51)
[2021-02-18] MEDS: Lurasidone 120 mg TAB PO SCH (21:29)
[2021-02-19] MEDS: Enoxaparin 40 MG/0.4 ML SYR SUBCUT SCH (09:07)
[2021-02-19] MEDS: Sulfamethox/Trimethoprim DS TAB 800/160 mg PO SCH ×2 (09:07→20:50)
[2021-02-19] MEDS: CMCS: Vilazodone 40 mg TAB (NF) PO SCH (09:07)
[2021-02-19] MEDS: Nystatin TOP POWDER 15 GM BTL TOPICAL SCH ×2 (11:46→20:51)
[2021-02-19] MEDS: Insulin GLARGINE 100 un/ml 10 ml VIAL SUBCUT SCH (13:44)
[2021-02-19] MEDS: Lurasidone 120 mg TAB PO SCH (20:50)
[2021-02-20 04:39] VITALS: BP 99/69
[2021-02-20] MEDS: CMCS: Vilazodone 40 mg TAB (NF) PO SCH (09:13)
[2021-02-20] MEDS: Enoxaparin 40 MG/0.4 ML SYR SUBCUT SCH (09:16)
[2021-02-20] MEDS: Nystatin TOP POWDER 15 GM BTL TOPICAL SCH (09:18)
[2021-02-20] MEDS ORDERED: Sulfamethox/Trimethoprim DS TAB 800/160 mg PO SCH (21:00)
== END 2021-02-20 12:23 | disposition home health service (06) | DRG 860 ==
LOC: PMRU 11:42
PROVIDERS: ADMIT Physical Medicine & Rehabilitation; ATTEND Physical Medicine & Rehabilitation